=== PATIENT | female | born 1950 | race Caucasian/White ===

== ENCOUNTER 2016-08-13 04:53 | Day surgery (SDC) | payer OTHER, MEDICARE ==
[2016-08-08 15:30] VITALS: BMI 22.2
[~2016-08-13 04:53] MED LIST: ceFAZolin SODIUM 1 GM VIAL IVPB ONE
[2016-08-13] MEDS ORDERED: ACETAMINOPHEN 325 MG TABLET (FP) PO PRN (06:34)
[2016-08-13] MEDS ORDERED: IBUPROFEN 400 MG TABLET (FP) PO PRN (06:34)
--- NOTE | 2016-08-13 06:34 | HP ---
History & Physical Update - History History: No Change - Physical Physical: No Change - Assessment Assessment: No Change - Plan Plan: No Change
[2016-08-13] MEDS ORDERED: ONDANSETRON 4 MG/2 ML VIAL IVPUSH PRN (08:11)
[2016-08-13] MEDS ORDERED: oxyCODONE HCL 5 MG TABLET PO PRN (08:11)
[2016-08-13] MEDS ORDERED: PROMETHAZINE HCL 25 MG/1 ML VIAL IVPUSH PRN (08:11)
[2016-08-13] MEDS ORDERED: LACTATED RINGERS SOLUTION 1,000 ML IV SCH (08:15)
[2016-08-13 10:30] VITALS: TEMP 97.8
[2016-08-13] MEDS ORDERED: IBUPROFEN 600 MG TABLET (FP) PO PRN (11:13)
--- NOTE | 2016-08-13 11:15 | OP ---
[id number] Operation: LEEP Cone biopsy Findings: Leep Cone biopsy Post-Operative Diagnosis: Same as Pre-op Surgeon: Tiffanie oByce Anesthesiologist/LIQUEFIED PETROLEUM GASFITTER: Kendrick Beckman ([facility]) Anesthesia: General Estimated Blood Loss (mls): 5 Operative Report Dictated: Yes
[2016-08-13 14:37] VITALS: BP 119/69; PULSE 77
--- NOTE | 2016-08-14 14:39 | PATH ---
Surgical Pathology Report Patient Name: AMERICA OLMEDO [facility]. Rec. #: [id number] /Age/Gender: 1950 (Age: 66) / F Account: [id number] Location: [facility] SURGICAL Taken: 08/13/2016 Received: 08/13/2016 Reported: 08/14/2016 Physicians: Tiffanei Boyce M.D. Specimen(s) Received A: ECTOCERVIX LEEP CONE BIOPSY B: ENDOCERVIX LEEP CONE BIOPSY Clinical History Human papillomavirus infection Final Diagnosis A. ECTOCERVIX, LEEP CONE BIOPSY: CERVICAL SQUAMOUS AND ENDOCERVICAL MUCOSA WITH HIGH GRADE SQUAMOUS INTRAEPITHELIAL LESION (CERVICAL INTRAEPITHELIAL NEOPLASIA 2/ JOSE 2); FOCI OF LOW GRADE SQUAMOUS VENTRICULAR LESION ALSO PRESENT. SURGICAL RESECTION MARGINS: NEGATIVE FOR HIGH GRADE DYSPLASIA. TRANSFORMATION ZONE: PRESENT. B. ENDOCERVIX, LEEP CONE BIOPSY: BENIGN ENDOCERVICAL TISSUE. NO DYSPLASIA IDENTIFIED. TRANSFORMATION ZONE: NOT IDENTIFIED. Electronically Signed Laz Gonzalez M.D. Gross Description A. Received in formalin, labeled "ectocervix" is a 1.7 cm in diameter annular portion of soft tissue, consistent with a cervical cone biopsy. There is a suture present marking the 12:00 aspect of the specimen, per the surgeon. The specimen is partially surfaced by a hughes-pink, shiny and glistening mucosa. The specimen is inked green, serially sectioned and entirely submitted in 4 cassettes as follows: 1-12:00 to 3:00; 2-3:00 to 6:00; 3-6:00 to 9:00; 4-9:00 to 12:00. B. Received in formalin, labeled "endocervix" is a 1.7 x 1.1 x 0.9 cm irregular, unoriented portion of soft tissue. The specimen is inked green and serially sectioned. The specimen is entirely submitted in 3 cassettes. 08/13/201608/13/2016
--- NOTE | 2016-08-22 07:30 | OP ---
DATE OF OPERATION: 08/13/2016 PREOPERATIVE DIAGNOSIS: Human papillomavirus. OPERATION: Loop electrosurgical excision procedure cone biopsy. POSTOPERATIVE DIAGNOSIS: Human papillomavirus. SURGEON: Parul Boyce MD ANESTHESIOLOGIST: Nestor Beckman MD INTERNATIONAL TRADE COMPLIANCE MANAGER: Panfilo Padilla Jr., CRNA ANESTHESIA: General. PROCEDURE: Patient was taken to the operating room, placed in dorsal lithotomy position, prepped and draped in the usual sterile fashion. Lugol was placed on the cervix. A large LEEP loop cone was done, and the cervical specimen was removed. Contents were submitted to Pathology. Cautery was then used to cauterize the cervix. Monsel was placed on the cervix. Estimated blood loss was 3 mL. All instruments were then removed. Patient tolerated procedure well and was taken to the recovery room in stable condition. PARUL BOYCE M.D. [id number] MTDD
== END 2016-08-13 13:30 | disposition home or self-care (01) ==
LOC: JASU-SURG 04:53
PROVIDERS: ATTEND Obstetrics & Gynecology
PROC: 0UBC7ZX Excision of Cervix, Via Natural or Artificial Opening, Diagnostic (ICD-10-PCS; principal; 2016-08-13 08:00)
DX: N87.1 Moderate cervical dysplasia (principal); R87.810 Cervical high risk human papillomavirus (HPV) DNA test positive
CPT/HCPCS: 88307-TC; 94760

== ENCOUNTER 2016-08-29 10:24 | Day surgery (SDC) | payer OTHER, MEDICARE ==
[2016-08-29 10:56] LABS: BASOPHIL 0.9 % (0-2.0); EOSINOPHIL 1.1 % (0-4.5); MEAN CELL VOLUME 85.5 fl (80-96); MEAN PLT VOLUME 7.5 fl (7.5-11.1); NEUTROPHILS 62.9 % (42.8-82.8); PLATELET COUNT 424 K/MM3 (134-434); RDW 14.2 % (11.6-15.6); WHITE BLOOD COUNT 8.4 K/mm3 (4.0-10.0)
[2016-08-29] MEDS ORDERED: SODIUM CHLORIDE 250 ML IV ONE ×2 (11:15→15:00)
[2016-08-29 11:20] LABS: ALBUMIN 3.9 g/dl (3.4-5.0); AMYLASE 97 U/L (25-115); ANION GAP 8 (8-16); BILIRUBIN,TOTAL 0.3 mg/dL (0.2-1.0); CALCIUM 8.9 mg/dL (8.5-10.1); CO2 28 mmol/L (21-32); CREATININE 0.6 mg/dL (0.55-1.02); GLUCOSE,RANDOM 136 mg/dL (74-106); SGOT/AST 16 U/L (15-37); SGPT/ALT 28 U/L (12-78)
[2016-08-29 11:21] LABS: ALK PHOS 76 U/L (45-117); TOT PROT 7.6 g/dl (6.4-8.2)
[2016-08-29 11:29] LABS: BILIRUBIN,DIRECT < 0.1 mg/dL (0.0-0.2)
[2016-08-29] MEDS ORDERED: ACETAMINOPHEN 325 MG TABLET (FP) PO ONE (11:30)
[2016-08-29] MEDS ORDERED: HYDROCORTISONE SOD SUCCINATE 100 MG/2 ML VIAL IVPB ONE (11:30)
[2016-08-29] MEDS ORDERED: SODIUM CHLORIDE IVPB ONE (12:00)
[2016-08-29] MEDS ORDERED: INFLIXIMAB IVPB ONE (12:00)
[2016-08-29 12:32] LABS: ERYTHROCYTE SEDIMENTATION RATE 20 mm/hr (0-30)
[2016-08-29 14:02] LABS: C-REACTIVE PROTEIN < 0.3 MG/DL (0.00-0.3)
[2016-08-29 14:47] VITALS: BP 114/67; PULSE 82; TEMP 98.3; BMI 22.6
== END 2016-08-29 18:34 | disposition home or self-care (01) ==
LOC: JINFUSION 10:24 → J7W 10:32 → JINFUSION 18:34
PROVIDERS: ATTEND Internal Medicine Gastroenterology
DX: K51.90 Ulcerative colitis, unspecified, without complications (principal)
CPT/HCPCS: 96361; 96413; 96415; J1745; 36415; 80048; 80076; 82150; 85025; 85651; 86140; 96365; 96366

== ENCOUNTER 2016-10-03 08:53 | Day surgery (SDC) | payer OTHER, MEDICARE ==
[2016-10-02 14:30] VITALS: BMI 23.0
[2016-10-03] MEDS ORDERED: ACETAMINOPHEN 325 MG TABLET (FP) PO ONE (10:15)
[2016-10-03 10:21] LABS: ANION GAP 9 (8-16); BILIRUBIN,TOTAL 0.4 mg/dL (0.2-1.0); CO2 28 mmol/L (21-32); CREATININE 0.6 mg/dL (0.55-1.02); GLUCOSE,RANDOM 133 mg/dL (74-106); SGOT/AST 13 U/L (15-37); SGPT/ALT 23 U/L (12-78); TOT PROT 7.3 g/dl (6.4-8.2)
[2016-10-03 10:22] LABS: ALK PHOS 69 U/L (45-117)
[2016-10-03] MEDS ORDERED: ACETAMINOPHEN 325 MG TABLET (FP) ONE (10:37)
[2016-10-03] MEDS ORDERED: ZOLEDRONIC ACID/MAN/WATER 100 ML IVPB ONE (10:45)
[2016-10-03 13:21] VITALS: BP 138/65; PULSE 67
== END 2016-10-03 12:00 | disposition home or self-care (01) ==
LOC: JINFUSION 08:53 → J7W 08:54 → JINFUSION 08:54
PROVIDERS: ATTEND Family Medicine
PROC: 3E033GC Introduction of Other Therapeutic Substance into Peripheral Vein, Percutaneous Approach (ICD-10-PCS; principal; 2016-10-03)
DX: M81.0 Age-related osteoporosis without current pathological fracture (principal)
CPT/HCPCS: 96365; J3489; 36415; 80053; J1745

== ENCOUNTER 2016-11-01 09:08 | Day surgery (SDC) | payer OTHER, MEDICARE ==
[2016-11-01 09:25] LABS: BASOPHIL 0.9 % (0-2.0); EOSINOPHIL 2.2 % (0-4.5); MCH 28.6 pg (25.7-33.7); MCHC 32.7 g/dl (32.0-36.0); MEAN CELL VOLUME 87.4 fl (80-96); MEAN PLT VOLUME 7.3 fl (7.5-11.1); PLATELET COUNT 329 K/MM3 (134-434); RDW 14.7 % (11.6-15.6); WHITE BLOOD COUNT 6.5 K/mm3 (4.0-10.0)
[2016-11-01] MEDS ORDERED: SODIUM CHLORIDE 250 ML IV ONE ×2 (09:45→13:30)
[2016-11-01] MEDS ORDERED: ACETAMINOPHEN 500 MG TABLET (FP) PO ONE (10:00)
[2016-11-01] MEDS ORDERED: HYDROCORTISONE SOD SUCCINATE 100 MG/2 ML VIAL IVPB ONE (10:00)
[2016-11-01 10:23] LABS: C-REACTIVE PROTEIN < 0.3 MG/DL (0.00-0.3)
[2016-11-01] MEDS ORDERED: INFLIXIMAB IVPB ONE (10:30)
[2016-11-01] MEDS ORDERED: SODIUM CHLORIDE IVPB ONE (10:30)
[2016-11-01 10:44] LABS: ALBUMIN 3.9 g/dl (3.4-5.0); ALK PHOS 66 U/L (45-117); AMYLASE 77 U/L (25-115); ANION GAP 10 (8-16); BILIRUBIN,TOTAL 0.3 mg/dL (0.2-1.0); CALCIUM 8.8 mg/dL (8.5-10.1); CO2 26 mmol/L (21-32); CREATININE 0.6 mg/dL (0.55-1.02); GLUCOSE,RANDOM 125 mg/dL (74-106); SGOT/AST 10 U/L (15-37); SGPT/ALT 18 U/L (12-78); TOT PROT 7.3 g/dl (6.4-8.2)
[2016-11-01 10:45] LABS: BILIRUBIN,DIRECT < 0.1 mg/dL (0.0-0.2)
[2016-11-01 11:15] LABS: ERYTHROCYTE SEDIMENTATION RATE 10 mm/hr (0-30)
[2016-11-01 15:37] VITALS: TEMP 98
[2016-11-01 15:53] VITALS: BP 134/74; PULSE 73
== END 2016-11-01 15:55 | disposition home or self-care (01) ==
LOC: JCHEMO 09:08
PROVIDERS: ATTEND Internal Medicine Gastroenterology
DX: K51.90 Ulcerative colitis, unspecified, without complications (principal)
CPT/HCPCS: 96361; 96413; 96415; J1745; 36415; 80048; 80076; 82150; 85025; 85651; 86140

== ENCOUNTER 2016-11-15 15:35 | Emergency (ER) | payer OTHER, MEDICARE ==
[2016-11-15 15:47] VITALS: TEMP 97.8; BMI 22.0
--- NOTE | 2016-11-15 17:44 | PDOC ---
History of Present Illness - General History Source: Patient Exam Limitations: No Limitations - History of Present Illness Travel History: No Initial Comments: 11/15/16 17:38 66 yo F with PMHx of ulcerative colitis treated with Remicade presents with one week history of diarrhea. She states that for the past week she has had 3-5 non- bloody watery bowel movements. She states that she has had poor oral intake and feels as if she is dehydrated. She feels weak and has had subjective fevers. She endorses that she is on last day of treatment with Z pack for recent URI. However diarrhea started before initiation of antibiotics. Accompanied by abdominal pain which she rates 3/10 constant non radiating mostly in LLQ. No alleviating or aggravating factors. Denies travel or sick contacts. Denies CP, SOB, N/V. <Daniel Mace - Last Filed: 11/15/16 18:18> <German Xie - Last Filed: 11/15/16 20:41> - General Chief Complaint: Diarrhea Stated Complaint: FATIGUE, DIARRHEA Time Seen by Provider: 11/15/16 17:16 Past History - Travel Traveled outside of the country in the last 30 days: No Close contact w/someone who was outside of country & ill: No - Past Medical History Anemia: No Asthma: No Cancer: No Cardiac Disorders: No CVA: No COPD: No CHF: No Dementia: No Diabetes: No GI Disorders: Yes (ULCERATIVE COLITIS,REFLUX) Disorders: No HTN: No Hypercholesterolemia: No Liver Disease: No Suicide Attempt (Hx): No Seizures: No Thyroid Disease: No - Surgical History Abdominal Surgery: No Appendectomy: No Cardiac Surgery: No Cholecystectomy: No Lung Surgery: No Neurologic Surgery: Yes (FACET INJECTION) Orthopedic Surgery: No - Immunization History Immunization Up to Date: Yes - Psycho/Social/Smoking Cessation Hx Anxiety: Yes Suicidal Ideation: No Smoking Status: No Smoking History: Never smoked Have you smoked in the past 12 months: No Number of Cigarettes Smoked Daily: 0 Cigars Per Day: 0 Hx Alcohol Use: No Drug/Substance Use Hx: No Substance Use Type: None Hx Substance Use Treatment: No <Daniel Mace - Last Filed: 11/15/16 18:18> <German Xie - Last Filed: 11/15/16 20:41> - Past Medical History Allergies/Adverse Reactions: Allergies Allergy/AdvReac Type Severity Reaction Status Date / Time codeine [Codeine] Allergy Unknown Verified 11/15/16 15:45 Home Medications: Ambulatory Orders Azithromycin [Zithromax Tri-Paresh (3 DAYS) -] 500 mg PO DAILY 11/15/16 Infliximab [Remicade Infusion -] 0 mg IVPB ASDIR 11/15/16 Abd/GI Specific PMHX - Complaint Specific PMHX Colitis: Yes Other History: Ulcerative colitis well controlled on Remicade. <Daniel Mace - Last Filed: 11/15/16 18:18> Review of Systems - Review of Systems Constitutional: Yes: Loss of Appetite ABD/GI: Yes: Diarrhea, Poor Appetite, Poor Fluid Intake Musculoskeletal: Yes: Muscle Weakness Neurological: Yes: Headache All Other Systems: Reviewed and Negative <Daniel Mace - Last Filed: 11/15/16 18:18> *Physical Exam - Vital Signs Last Vital Signs Temp Pulse Resp BP Pulse Ox 97.8 F 74 18 109/66 98 11/15/16 15:46 11/15/16 15:46 11/15/16 15:46 11/15/16 15:46 11/15/16 15:46 - Physical Exam General Appearance: Yes: Mild Distress HEENT: positive: LEROY, Normal ENT Inspection Neck: positive: Supple Respiratory/Chest: positive: Lungs Clear, Normal Breath Sounds. negative: Respiratory Distress, Accessory Muscle Use Cardiovascular: positive: Regular Rhythm, Regular Rate, S1, S2. negative: Edema , JVD, Murmur Gastrointestinal/Abdominal: positive: Normal Bowel Sounds, Tender (LLQ), Flat, Soft Musculoskeletal: positive: Normal Inspection. negative: CVA Tenderness Integumentary: positive: Normal Color, Dry, Warm Neurologic: positive: Fully Oriented <Daniel Mace - Last Filed: 11/15/16 18:18> - Vital Signs Last Vital Signs Temp Pulse Resp BP Pulse Ox 97.8 F 74 18 109/66 98 11/15/16 15:46 11/15/16 15:46 11/15/16 15:46 11/15/16 15:46 11/15/16 15:46 <German Xie - Last Filed: 11/15/16 20:41> ED Treatment Course - LABORATORY CBC & Chemistry Diagram: 11/15/16 17:42 11/15/16 17:42 <Daniel Mace - Last Filed: 11/15/16 18:18> - LABORATORY CBC & Chemistry Diagram: 11/15/16 17:42 11/15/16 17:42 - ADDITIONAL ORDERS Additional order review: Laboratory Results 11/15/16 17:42 Sodium 141 Potassium 3.7 Chloride 104 Carbon Dioxide 28 Anion Gap 9 BUN 21 H D Creatinine 0.7 Creat Clearance w eGFR > 60 Random Glucose 111 H Calcium 8.2 L Magnesium 2.5 H D Total Bilirubin 0.3 AST 20 D ALT 26 D Alkaline Phosphatase 56 Total Protein 7.0 Albumin 3.7 11/15/16 17:42 RBC 4.79 MCV 85.2 MCHC 33.7 RDW 14.3 MPV 8.4 D Neutrophils % 27.0 L D Lymphocytes % 56.0 H D Monocytes % 10.0 - Medications Given in the ED: ED Medications Discontinued Medications Generic Name Dose Route Start Last Admin Trade Name Freq PRN Reason Stop Dose Admin Sodium Chloride 1,000 mls @ 1,000 mls/hr 11/15/16 17:35 11/15/16 18:00 Normal Saline - IV 11/15/16 18:34 1,000 mls/hr ASDIR STA Administration <German Xie - Last Filed: 11/15/16 20:41> Medical Decision Making - Medical Decision Making 11/15/16 17:47 66 yo F with Ulcerative Colitis presents with one week history of watery diarrhea. Will send stool for ova, paracites, WBC,c-diff(ab&antigen) and cultures. CBC, CMP, sent. Will give 1L IVF bolus with NS <Daniel Mace - Last Filed: 11/15/16 18:18> *DC/Admit/Observation/Transfer <Daniel Mace - Last Filed: 11/15/16 18:18> <German Xie - Last Filed: 11/15/16 20:41> Diagnosis at time of Disposition: Dehydration Diarrhea Qualifiers: Diarrhea type: unspecified type Qualified Code(s): R19.7 - Diarrhea, unspecified - Discharge Dispostion Disposition: HOME Condition at time of disposition: Stable - Patient Instructions Printed Discharge Instructions: DI for Diarrhea and Traveler's Diarrhea -- Adult
[2016-11-15] MEDS: SODIUM CHLORIDE 1,000 ML IV STA (18:00)
[2016-11-15 18:03] LABS: MCH 28.7 pg (25.7-33.7); MCHC 33.7 g/dl (32.0-36.0); MEAN CELL VOLUME 85.2 fl (80-96); MEAN PLT VOLUME 8.4 fl (7.5-11.1); PLATELET COUNT 269 K/MM3 (134-434); RDW 14.3 % (11.6-15.6); WHITE BLOOD COUNT 5.6 K/mm3 (4.0-10.0)
[2016-11-15 18:30] LABS: ALBUMIN 3.7 g/dl (3.4-5.0); ALK PHOS 56 U/L (45-117); ANION GAP 9 (8-16); BILIRUBIN,TOTAL 0.3 mg/dL (0.2-1.0); CALCIUM 8.2 mg/dL (8.5-10.1); CO2 28 mmol/L (21-32); COCKROFT - GAULT 63.3675; CREATININE 0.7 mg/dL (0.55-1.02); GLUCOSE,RANDOM 111 mg/dL (74-106); SGOT/AST 20 U/L (15-37); SGPT/ALT 26 U/L (12-78)
[2016-11-15 19:06] LABS: PLATELET ESTIMATE ADEQUATE (NORMAL)
--- NOTE | 2016-11-15 19:18 | PDOC ---
Attending Attestation - Resident Resident Name: Daniel Mace - ED Attending Attestation I have performed the following: I have examined & evaluated the patient, The case was reviewed & discussed with the resident, I agree w/resident's findings & plan, Exceptions are as noted - HPI HPI: 11/15/16 19:16 66-year-old female with history of ulcerative colitis on Remicade, presents with several days of persistent, productive cough, intermittent abdominal pain that is exacerbated post tussive only, and several days of loose watery stools with associated generalized weakness and malaise. Patient's currently on day 4 of Zithromax prescribed by the PMD. - Physicial Exam PE: 11/15/16 19:17 Patient is awake and alert, well-appearing, afebrile, in no distress. Serial abdominal exams reveal no focal tenderness. Lungs are clear, there is no lower externally edema, joint pathology or cutaneous rash. - Medical Decision Making 11/15/16 19:17 Patient 66-year-old female with history of ulcerative colitis who presents with uri-type symptoms and loose watery stools for one week. I suspect acute viral syndrome. Symptoms are unlikely related to acute altered colitis exacerbation. We'll obtain stool cultures as well as will test for C. difficile. Will hydrate. Will discuss with PMD. Likely discharge. 11/15/16 20:38 Patient reassessed. Patient is resting comfortably, pain free, tolerates by mouth. Will discharge. Case discussed with Dr. Brooks who agrees with the plan of care.
[2016-11-15 19:45] LABS: MAGNESIUM 2.5 mg/dL (1.8-2.4)
[2016-11-15 21:20] VITALS: BP 115/70; PULSE 68
== END 2016-11-15 21:10 | disposition home or self-care (01) ==
LOC: JER 15:35
PROC: 3E0337Z Introduction of Electrolytic and Water Balance Substance into Peripheral Vein, Percutaneous Approach (ICD-10-PCS; principal; 2016-11-15)
DX: E86.0 Dehydration (principal); R19.7 Diarrhea, unspecified; Z87.19 Personal history of other diseases of the digestive system
CPT/HCPCS: 36415; 80053; 83735; 85025; 99283-25

== ENCOUNTER 2016-12-28 08:07 | Day surgery (SDC) | payer OTHER, MEDICARE ==
[2016-12-28 08:44] LABS: BASOPHIL 0.7 % (0-2.0); EOSINOPHIL 2.5 % (0-4.5); MCH 29.2 pg (25.7-33.7); MCHC 33.4 g/dl (32.0-36.0); MEAN CELL VOLUME 87.3 fl (80-96); MEAN PLT VOLUME 7.4 fl (7.5-11.1); NEUTROPHILS 47.1 % (42.8-82.8); PLATELET COUNT 334 K/MM3 (134-434); RDW 14.8 % (11.6-15.6); WHITE BLOOD COUNT 6.2 K/mm3 (4.0-10.0)
[2016-12-28] MEDS ORDERED: HYDROCORTISONE SOD SUCCINATE 100 MG/2 ML VIAL IVPB ONE (09:00)
[2016-12-28] MEDS ORDERED: SODIUM CHLORIDE 250 ML IV ONE ×2 (09:00→12:30)
[2016-12-28] MEDS ORDERED: ACETAMINOPHEN 500 MG TABLET (FP) PO ONE (09:00)
[2016-12-28 09:15] LABS: ALBUMIN 3.8 g/dl (3.4-5.0); ALK PHOS 68 U/L (45-117); ANION GAP 10 (8-16); BILIRUBIN,TOTAL 0.3 mg/dL (0.2-1.0); CO2 27 mmol/L (21-32); COCKROFT - GAULT 0; CREATININE 0.6 mg/dL (0.55-1.02); GLUCOSE,RANDOM 128 mg/dL (74-106); SGOT/AST 11 U/L (15-37); SGPT/ALT 24 U/L (12-78); TOT PROT 7.1 g/dl (6.4-8.2)
[2016-12-28] MEDS ORDERED: HYDROCORTISONE ONE (09:21)
[2016-12-28] MEDS ORDERED: ACETAMINOPHEN 500 MG TABLET (FP) ONE (09:21)
[2016-12-28 09:24] LABS: BILIRUBIN,DIRECT < 0.1 mg/dL (0.0-0.2)
[2016-12-28] MEDS ORDERED: INFLIXIMAB IVPB ONE (09:30)
[2016-12-28] MEDS ORDERED: SODIUM CHLORIDE IVPB ONE (09:30)
[2016-12-28 09:32] LABS: C-REACTIVE PROTEIN < 0.3 MG/DL (0.00-0.3)
[2016-12-28 10:04] LABS: ERYTHROCYTE SEDIMENTATION RATE 16 mm/hr (0-30)
[2016-12-28 13:21] VITALS: TEMP 98.2
[2016-12-28 15:56] VITALS: BP 140/79; PULSE 68
== END 2016-12-28 15:58 | disposition home or self-care (01) ==
LOC: JCHEMO 08:07
PROVIDERS: ATTEND Internal Medicine Gastroenterology
DX: K51.90 Ulcerative colitis, unspecified, without complications (principal)
CPT/HCPCS: 96413; 96415; J1745; 36415; 80048; 80076; 82150; 85025; 85651; 86140

== ENCOUNTER 2017-03-05 08:29 | Day surgery (SDC) | payer OTHER, MEDICARE ==
[~2017-03-05 08:29] MED LIST changes: +ACETAMINOPHEN 500 MG TABLET (FP) PO ONE; +HYDROCORTISONE SOD SUCCINATE 100 MG/2 ML VIAL IVPB ONE; +INFLIXIMAB IVPB ONE; +SODIUM CHLORIDE IVPB ONE; -ceFAZolin SODIUM 1 GM VIAL IVPB ONE; +diphenhydrAMINE HCL 25 MG CAPSULE (FP) PO ONE
[2017-03-05 09:03] LABS: BASOPHIL 0.6 % (0-2.0); EOSINOPHIL 1.7 % (0-4.5); MCH 29.6 pg (25.7-33.7); MCHC 33.5 g/dl (32.0-36.0); MEAN CELL VOLUME 88.3 fl (80-96); MEAN PLT VOLUME 7.2 fl (7.5-11.1); NEUTROPHILS 53.1 % (42.8-82.8); PLATELET COUNT 343 K/MM3 (134-434); RDW 14.8 % (11.6-15.6); WHITE BLOOD COUNT 7.2 K/mm3 (4.0-10.0)
[2017-03-05 09:29] LABS: ALBUMIN 3.8 g/dl (3.4-5.0); ALK PHOS 61 U/L (45-117); AMYLASE 71 U/L (25-115); ANION GAP 6 (8-16); BILIRUBIN,TOTAL 0.4 mg/dL (0.2-1.0); C-REACTIVE PROTEIN < 0.3 MG/DL (0.00-0.3); CALCIUM 9.1 mg/dL (8.5-10.1); CO2 31 mmol/L (21-32); CREATININE 0.6 mg/dL (0.55-1.02); GLUCOSE,RANDOM 104 mg/dL (74-106); SGOT/AST 12 U/L (15-37); SGPT/ALT 22 U/L (12-78)
[2017-03-05 09:34] LABS: BILIRUBIN,DIRECT < 0.1 mg/dL (0.0-0.2)
[2017-03-05] MEDS ORDERED: ACETAMINOPHEN 500 MG TABLET (FP) ONE ×2 (09:43→09:45)
[2017-03-05] MEDS ORDERED: ACETAMINOPHEN 500 MG TABLET (FP) PO ONE (09:45)
[2017-03-05] MEDS ORDERED: HYDROCORTISONE SOD SUCCINATE 100 MG/2 ML VIAL IVPB ONE (09:45)
[2017-03-05] MEDS ORDERED: SODIUM CHLORIDE 250 ML IV ONE ×2 (09:45→13:00)
[2017-03-05] MEDS ORDERED: HYDROCORTISONE ONE (10:04)
[2017-03-05] MEDS ORDERED: SODIUM CHLORIDE IVPB ONE (10:30)
[2017-03-05] MEDS ORDERED: INFLIXIMAB IVPB ONE (10:30)
[2017-03-05 13:50] LABS: ERYTHROCYTE SEDIMENTATION RATE 12 mm/hr (0-30)
[2017-03-05 14:01] VITALS: TEMP 99.1
[2017-03-05 15:36] VITALS: BP 110/68; PULSE 70
== END 2017-03-05 15:37 | disposition home or self-care (01) ==
LOC: JCHEMO 08:29
PROVIDERS: ATTEND Internal Medicine Gastroenterology
DX: K51.90 Ulcerative colitis, unspecified, without complications (principal)
CPT/HCPCS: 96367; 96413; 96415; J1745; 36415; 80048; 80076; 82150; 85025; 85651; 86140

== ENCOUNTER 2017-05-02 08:25 | Day surgery (SDC) | payer OTHER, MEDICARE ==
[2017-05-02] MEDS ORDERED: ACETAMINOPHEN 500 MG TABLET (FP) ONE (08:37)
[2017-05-02 08:53] LABS: BASOPHIL 0.6 % (0-2.0); EOSINOPHIL 1.7 % (0-4.5); MCH 29.4 pg (25.7-33.7); MCHC 33.4 g/dl (32.0-36.0); MEAN CELL VOLUME 87.9 fl (80-96); MEAN PLT VOLUME 7.2 fl (7.5-11.1); NEUTROPHILS 53.8 % (42.8-82.8); PLATELET COUNT 371 K/MM3 (134-434); WHITE BLOOD COUNT 7.2 K/mm3 (4.0-10.0)
[2017-05-02] MEDS ORDERED: SODIUM CHLORIDE 250 ML IV ONE ×2 (09:00→13:00)
[2017-05-02] MEDS ORDERED: HYDROCORTISONE SOD SUCCINATE 100 MG/2 ML VIAL IVPB ONE (09:30)
[2017-05-02] MEDS ORDERED: ACETAMINOPHEN 500 MG TABLET (FP) PO ONE (09:30)
[2017-05-02 09:31] LABS: ALBUMIN 3.7 g/dl (3.4-5.0); AMYLASE 66 U/L (25-115); ANION GAP 9 (8-16); BILIRUBIN,DIRECT < 0.1 mg/dL (0.0-0.2); BILIRUBIN,TOTAL 0.3 mg/dL (0.2-1.0); C-REACTIVE PROTEIN 0.5 MG/DL (0.00-0.3); CALCIUM 8.9 mg/dL (8.5-10.1); CO2 28 mmol/L (21-32); CREATININE 0.5 mg/dL (0.55-1.02); GLUCOSE,RANDOM 128 mg/dL (74-106); SGOT/AST 14 U/L (15-37); SGPT/ALT 26 U/L (12-78); TOT PROT 7.2 g/dl (6.4-8.2)
[2017-05-02 09:32] LABS: ALK PHOS 68 U/L (45-117)
[2017-05-02] MEDS ORDERED: INFLIXIMAB IVPB ONE (10:00)
[2017-05-02] MEDS ORDERED: SODIUM CHLORIDE IVPB ONE (10:00)
[2017-05-02] MEDS ORDERED: HYDROCORTISONE ONE (10:13)
[2017-05-02 10:33] LABS: ERYTHROCYTE SEDIMENTATION RATE 22 mm/hr (0-30)
[2017-05-02 15:23] VITALS: BP 126/72; PULSE 72; TEMP 98.2
== END 2017-05-02 15:52 | disposition home or self-care (01) ==
LOC: JCHEMO 08:25
PROVIDERS: ATTEND Internal Medicine Gastroenterology
DX: K51.90 Ulcerative colitis, unspecified, without complications (principal)
CPT/HCPCS: 36415; 80048; 80076; 82150; 85025; 85651; 86140; 96367; 96413; 96415; J1745

== ENCOUNTER 2017-06-25 07:07 | Day surgery (SDC) | payer OTHER, MEDICARE ==
[2017-06-24 10:42] VITALS: BMI 22.6
[2017-06-25] MEDS ORDERED: BUPIVACAINE HCL/PF 0.25% (2.5MG/ML) 10 ML VIAL ONE (07:22)
[2017-06-25] MEDS ORDERED: BETAMET ACET/BETAMET NA PH 30 MG/5 ML VIAL ONE (07:22)
[2017-06-25] MEDS ORDERED: LIDOCAINE HCL 1%, 10 MG/ML (20ML VIAL) ONE (07:22)
[2017-06-25 07:30] VITALS: TEMP 97.3
[2017-06-25] MEDS ORDERED: MIDAZOLAM HCL 2 MG/2 ML SINGLE DOSE VIAL ONE (08:14)
[2017-06-25] MEDS ORDERED: PROPOFOL 20 ML ONE (08:15)
[2017-06-25] MEDS ORDERED: IOHEXOL 180 MG/1 ML ML IJ ONE (08:57)
[2017-06-25] MEDS ORDERED: BUPIVACAINE HCL/PF 0.25% (2.5MG/ML) 10 ML VIAL IJ ONE (08:57)
[2017-06-25] MEDS ORDERED: BETAMET ACET/BETAMET NA PH 30 MG/5 ML VIAL IM ONE (08:57)
[2017-06-25] MEDS ORDERED: LIDOCAINE HCL 1%, 10 MG/ML (20ML VIAL) NR ONE (08:57)
[2017-06-25] MEDS ORDERED: oxyCODONE HCL 5 MG TABLET PO PRN (10:24)
[2017-06-25] MEDS ORDERED: ACETAMINOPHEN 325 MG TABLET (FP) PO PRN (10:24)
[2017-06-25] MEDS ORDERED: ONDANSETRON 4 MG/2 ML VIAL IVPUSH PRN (10:24)
[2017-06-25] MEDS ORDERED: LACTATED RINGERS SOLUTION 1,000 ML IV SCH (10:30)
[2017-06-25 11:29] VITALS: BP 127/84; PULSE 69
== END 2017-06-25 11:30 | disposition home or self-care (01) ==
LOC: JASU-SURG 07:07
PROVIDERS: ATTEND Physical Medicine & Rehabilitation
PROC: 3E0T33Z Introduction of Anti-inflammatory into Peripheral Nerves and Plexi, Percutaneous Approach (ICD-10-PCS; 2017-06-25)
PROC: BR16YZZ Fluoroscopy of Lumbar Facet Joint(s) using Other Contrast (ICD-10-PCS; 2017-06-25)
PROC: 3E0T3BZ Introduction of Anesthetic Agent into Peripheral Nerves and Plexi, Percutaneous Approach (ICD-10-PCS; principal; 2017-06-25 08:30)
DX: M46.96 Unspecified inflammatory spondylopathy, lumbar region (principal); M54.9 Dorsalgia, unspecified
CPT/HCPCS: 76000-TC

== ENCOUNTER 2017-07-05 08:59 | Day surgery (SDC) | payer OTHER, MEDICARE ==
[2017-07-05] MEDS ORDERED: HYDROCORTISONE ONE (09:15)
[2017-07-05] MEDS ORDERED: diphenhydrAMINE HCL 25 MG CAPSULE (FP) PO ONE ×2 (09:16→09:30)
[2017-07-05] MEDS ORDERED: ACETAMINOPHEN 500 MG TABLET (FP) ONE (09:17)
[2017-07-05] MEDS ORDERED: HYDROCORTISONE SOD SUCCINATE 100 MG/2 ML VIAL IVPB ONE (09:30)
[2017-07-05] MEDS ORDERED: ACETAMINOPHEN 500 MG TABLET (FP) PO ONE (09:30)
[2017-07-05 09:32] LABS: BASOPHIL 0.9 % (0-2.0); EOSINOPHIL 2.2 % (0-4.5); MCH 28.8 pg (25.7-33.7); MCHC 32.7 g/dl (32.0-36.0); MEAN PLT VOLUME 7.5 fl (7.5-11.1); NEUTROPHILS 44.8 % (42.8-82.8); PLATELET COUNT 366 K/MM3 (134-434); RDW 14.2 % (11.6-15.6); WHITE BLOOD COUNT 7.3 K/mm3 (4.0-10.0)
[2017-07-05] MEDS ORDERED: SODIUM CHLORIDE 250 ML IV SCH ×2 (09:45→12:30)
[2017-07-05 09:53] LABS: ALBUMIN 3.7 g/dl (3.4-5.0); ALK PHOS 67 U/L (45-117); AMYLASE 77 U/L (25-115); ANION GAP 7 (8-16); BILIRUBIN,DIRECT < 0.2 mg/dL (0.0-0.2); BILIRUBIN,TOTAL 0.3 mg/dL (0.2-1.0); CALCIUM 8.7 mg/dL (8.5-10.1); CO2 27 mmol/L (21-32); CREATININE 0.6 mg/dL (0.55-1.02); GLUCOSE,RANDOM 147 mg/dL (74-106); SGOT/AST 10 U/L (15-37); SGPT/ALT 21 U/L (12-78); TOT PROT 7.1 g/dl (6.4-8.2)
[2017-07-05 10:28] LABS: C-REACTIVE PROTEIN < 0.3 MG/DL (0.00-0.3)
[2017-07-05] MEDS ORDERED: SODIUM CHLORIDE IVPB ONE (10:30)
[2017-07-05] MEDS ORDERED: INFLIXIMAB IVPB ONE (10:30)
[2017-07-05 12:32] LABS: ERYTHROCYTE SEDIMENTATION RATE 15 mm/hr (0-30)
[2017-07-05 13:14] VITALS: PULSE 70
[2017-07-05 13:50] VITALS: TEMP 97.7
[2017-07-05 15:19] VITALS: BP 114/72
== END 2017-07-05 15:24 | disposition home or self-care (01) ==
LOC: JCHEMO 08:59
PROVIDERS: ATTEND Internal Medicine Gastroenterology
DX: K51.90 Ulcerative colitis, unspecified, without complications (principal)
CPT/HCPCS: 36415; 80048; 80076; 82150; 85025; 85651; 86140; 96360; 96361; 96413; 96415; J1745

== ENCOUNTER 2017-09-04 09:22 | Day surgery (SDC) | payer OTHER, MEDICARE ==
[~2017-09-04 09:22] MED LIST changes: -ACETAMINOPHEN 500 MG TABLET (FP) PO ONE; -HYDROCORTISONE SOD SUCCINATE 100 MG/2 ML VIAL IVPB ONE; -INFLIXIMAB IVPB ONE; +SODIUM CHLORIDE 250 ML IV ONE; -SODIUM CHLORIDE IVPB ONE; -diphenhydrAMINE HCL 25 MG CAPSULE (FP) PO ONE
[2017-09-04] MEDS ORDERED: HYDROCORTISONE ONE (09:27)
[2017-09-04] MEDS ORDERED: ACETAMINOPHEN 325 MG TABLET (FP) ONE (09:27)
[2017-09-04] MEDS ORDERED: ACETAMINOPHEN 500 MG TABLET (FP) ONE (09:30)
[2017-09-04] MEDS ORDERED: ACETAMINOPHEN 500 MG TABLET (FP) PO ONE (09:30)
[2017-09-04] MEDS ORDERED: HYDROCORTISONE SOD SUCCINATE 100 MG/2 ML VIAL IVPB ONE (09:30)
[2017-09-04 09:47] LABS: BASO % 0.7 % (0-2.0); EOS % 1.2 % (0-4.5); HEMATOCRIT 41.3 % (32.4-45.2); HEMOGLOBIN 13.4 GM/dL (10.7-15.3); LYMPH % 37.3 % (8-40); MCH 28.3 pg (25.7-33.7); MCHC 32.5 g/dl (32.0-36.0); MEAN PLT VOLUME 7.5 fl (7.5-11.1); MONO % 9.6 % (3.8-10.2); NEUT % 51.2 % (42.8-82.8); PLATELET COUNT 387 K/MM3 (134-434); RBC 4.75 M/mm3 (3.60-5.2); RDW 14.3 % (11.6-15.6); WHITE BLOOD COUNT 7.4 K/mm3 (4.0-10.0)
[2017-09-04] MEDS ORDERED: INFLIXIMAB IVPB ONE (10:00)
[2017-09-04] MEDS ORDERED: SODIUM CHLORIDE IVPB ONE (10:00)
[2017-09-04 10:53] LABS: ALBUMIN 3.9 g/dl (3.4-5.0); AMYLASE 65 U/L (25-115); ANION GAP 8 (8-16); BILIRUBIN,DIRECT < 0.2 mg/dL (0.0-0.2); BLOOD UREA NITROGEN 15 mg/dL (7-18); CALCIUM 9.2 mg/dL (8.5-10.1); CHLORIDE 105 mmol/L (98-107); CO2 28 mmol/L (21-32); CREATININE 0.5 mg/dL (0.55-1.02); GLUCOSE,RANDOM 97 mg/dL (74-106); POTASSIUM 3.9 mmol/L (3.5-5.1); SGOT/AST 12 U/L (15-37); SGPT/ALT 19 U/L (12-78); SODIUM 141 mmol/L (136-145)
[2017-09-04 10:54] LABS: ALK PHOS 63 U/L (45-117); BILIRUBIN,TOTAL 0.5 mg/dL (0.2-1.0); TOT PROT 7.5 g/dl (6.4-8.2)
[2017-09-04] MEDS ORDERED: SODIUM CHLORIDE 250 ML IV ONE (13:00)
[2017-09-04 15:33] VITALS: TEMP 98.5
[2017-09-04 16:14] VITALS: BP 116/72; PULSE 76
== END 2017-09-04 16:22 | disposition home or self-care (01) ==
LOC: JCHEMO 09:22
PROVIDERS: ATTEND Internal Medicine Gastroenterology
DX: K51.90 Ulcerative colitis, unspecified, without complications (principal)
CPT/HCPCS: 36415; 80048; 80076; 82150; 85025; 85651; 86140; 96367; 96413; 96415; J1745

== ENCOUNTER 2017-10-30 09:37 | Day surgery (SDC) | payer OTHER, MEDICARE ==
[2017-10-30] MEDS ORDERED: HYDROCORTISONE SOD SUCCINATE 100 MG/2 ML VIAL IVPB ONE (10:00)
[2017-10-30] MEDS ORDERED: ACETAMINOPHEN 500 MG TABLET (FP) PO ONE (10:00)
[2017-10-30] MEDS ORDERED: SODIUM CHLORIDE 250 ML IV SCH ×2 (10:00→14:00)
[2017-10-30 10:14] LABS: EOS % 1.5 % (0-4.5); HEMATOCRIT 40.6 % (32.4-45.2); HEMOGLOBIN 13.4 GM/dL (10.7-15.3); LYMPH % 30.9 % (8-40); MCH 29.2 pg (25.7-33.7); MCHC 33.1 g/dl (32.0-36.0); MEAN PLT VOLUME 7.8 fl (7.5-11.1); MONO % 11.8 % (3.8-10.2); NEUT % 54.8 % (42.8-82.8); PLATELET COUNT 415 K/MM3 (134-434); RBC 4.61 M/mm3 (3.60-5.2); WHITE BLOOD COUNT 6.7 K/mm3 (4.0-10.0)
[2017-10-30 10:25] LABS: ALBUMIN 3.9 g/dl (3.4-5.0); AMYLASE 68 U/L (25-115); ANION GAP 5 (8-16); BILIRUBIN,DIRECT < 0.2 mg/dL (0.0-0.2); BLOOD UREA NITROGEN 13 mg/dL (7-18); CALCIUM 8.8 mg/dL (8.5-10.1); CHLORIDE 105 mmol/L (98-107); CO2 28 mmol/L (21-32); CREATININE 0.6 mg/dL (0.55-1.02); GLUCOSE,RANDOM 102 mg/dL (74-106); POTASSIUM 4.2 mmol/L (3.5-5.1); SGOT/AST 14 U/L (15-37); SGPT/ALT 27 U/L (12-78); SODIUM 138 mmol/L (136-145)
[2017-10-30 10:27] LABS: ALK PHOS 64 U/L (45-117); BILIRUBIN,TOTAL 0.3 mg/dL (0.2-1.0); TOT PROT 7.2 g/dl (6.4-8.2)
[2017-10-30] MEDS ORDERED: HYDROCORTISONE ONE (10:48)
[2017-10-30] MEDS ORDERED: ACETAMINOPHEN 500 MG TABLET (FP) ONE (10:49)
[2017-10-30] MEDS ORDERED: SODIUM CHLORIDE IVPB ONE (11:00)
[2017-10-30] MEDS ORDERED: INFLIXIMAB IVPB ONE (11:00)
[2017-10-30 11:55] LABS: ERYTHROCYTE SEDIMENTATION RATE 19 mm/hr (0-30)
[2017-10-30 15:07] VITALS: TEMP 98.7
[2017-10-30 16:32] VITALS: BP 134/74; PULSE 80
== END 2017-10-30 16:38 | disposition home or self-care (01) ==
LOC: JCHEMO 09:37
PROVIDERS: ATTEND Internal Medicine Gastroenterology
DX: K51.90 Ulcerative colitis, unspecified, without complications (principal)
CPT/HCPCS: 36415; 80048; 80076; 82150; 85025; 85651; 86140; 96367; 96413; 96415; J1745

== ENCOUNTER 2018-01-06 09:19 | Day surgery (SDC) | payer OTHER, MEDICARE ==
[2018-01-06] MEDS ORDERED: SODIUM CHLORIDE 250 ML IV ONE ×2 (10:00→14:15)
[2018-01-06] MEDS ORDERED: HYDROCORTISONE SOD SUCCINATE 100 MG/2 ML VIAL IVPB ONE (10:15)
[2018-01-06] MEDS ORDERED: ACETAMINOPHEN 500 MG TABLET (FP) PO ONE (10:15)
[2018-01-06] MEDS ORDERED: methylPREDNISolone NA SUCC 40 MG/1 ML VIAL IVPUSH ONE (10:15)
[2018-01-06] MEDS ORDERED: EPINEPHrine/PF 1 MG/1 ML (1:1,000) AMPULE IVPUSH PRN (10:16)
[2018-01-06] MEDS ORDERED: methylPREDNISolone NA SUCC 40 MG/1 ML VIAL IVPUSH PRN (10:20)
[2018-01-06 10:37] LABS: BASO % 0.7 % (0-2.0); EOS % 0.3 % (0-4.5); HEMATOCRIT 38.7 % (32.4-45.2); HEMOGLOBIN 13.1 GM/dl (10.7-15.3); LYMPH % 33.5 % (8-40); MCH 29.4 pg (25.7-33.7); MCHC 33.8 g/dl (32.0-36.0); MEAN CELL VOLUME 86.8 fl (80-96); MEAN PLT VOLUME 7.7 fl (7.5-11.1); MONO % 7.9 % (3.8-10.2); NEUT % 57.6 % (42.8-82.8); PLATELET COUNT 431 K/MM3 (134-434); RBC 4.46 M/mm3 (3.60-5.2); RDW 12.8 % (11.6-15.6); WHITE BLOOD COUNT 5.9 K/mm3 (4.0-10.8)
[2018-01-06] MEDS ORDERED: INFLIXIMAB IVPB ONE (10:45)
[2018-01-06] MEDS ORDERED: SODIUM CHLORIDE IVPB ONE (10:45)
[2018-01-06 11:09] LABS: AMYLASE 84 U/L (25-125); ANION GAP 8 (8-16); BLOOD UREA NITROGEN 12 mg/dl (7-18); CALCIUM 9.1 mg/dl (8.4-10.2); CHLORIDE 104 mmol/L (98-107); CHOLESTEROL 214 mg/dl; CO2 26 mmol/L (22-28); CREATININE 0.6 mg/dl (0.6-1.3); GLUCOSE,RANDOM 171 mg/dl (74-106); HDL CHOLESTEROL 58 mg/dl (29-89); LDL CHOLESTEROL (ONLY DFH) 117 mg/dl; POTASSIUM 3.4 mmol/L (3.5-5.1); SODIUM 138 mmol/L (136-145); TRIGLYCERIDES 196 mg/dl (35-160)
[2018-01-06] MEDS ORDERED: PT OWN MED DRAWER 7, Y5N ONE (11:51)
[2018-01-06 12:34] LABS: ALBUMIN 3.9 g/dl (3.5-5.0); ALK PHOS 57 U/L (32-92); ANION GAP 9 (8-16); BILIRUBIN,TOTAL 0.5 mg/dl (0.2-1.0); BLOOD UREA NITROGEN 13 mg/dl (7-18); CALCIUM 9.1 mg/dl (8.4-10.2); CHLORIDE 104 mmol/L (98-107); CO2 25 mmol/L (22-28); CREATININE 0.5 mg/dl (0.6-1.3); GLUCOSE,RANDOM 172 mg/dl (74-106); POTASSIUM 3.4 mmol/L (3.5-5.1); SGOT/AST 18 U/L (10-42); SGPT/ALT 14 U/L (10-40); SODIUM 138 mmol/L (136-145); TOT PROT 6.7 g/dl (6.4-8.3)
[2018-01-06 14:02] VITALS: PULSE 88
[2018-01-06 17:12] VITALS: BP 120/66; TEMP 98.8
== END 2018-01-06 17:45 | disposition home or self-care (01) ==
LOC: FINFUSION 09:19 → FM/S 09:38 → FINFUSION 17:45
PROVIDERS: ATTEND Internal Medicine Gastroenterology
PROC: 3E03305 Introduction of Other Antineoplastic into Peripheral Vein, Percutaneous Approach (ICD-10-PCS; principal; 2018-01-06)
PROC: 3E033GC Introduction of Other Therapeutic Substance into Peripheral Vein, Percutaneous Approach (ICD-10-PCS; 2018-01-06)
PROC: 3E0337Z Introduction of Electrolytic and Water Balance Substance into Peripheral Vein, Percutaneous Approach (ICD-10-PCS; 2018-01-06)
DX: K51.90 Ulcerative colitis, unspecified, without complications (principal)
CPT/HCPCS: 36415; 80048; 80053; 80061; 82150; 85025; 85651; 86140; 96360; 96361; 96367; 96413; 96415; J1745

== ENCOUNTER 2018-03-10 08:58 | Day surgery (SDC) | payer OTHER, MEDICARE ==
[2018-03-10] MEDS ORDERED: SODIUM CHLORIDE 250 ML IV ONE ×2 (09:00→10:30)
[2018-03-10] MEDS ORDERED: INFLIXIMAB IVPB ONE (09:15)
[2018-03-10] MEDS ORDERED: ACETAMINOPHEN 500 MG TABLET (FP) PO ONE (09:15)
[2018-03-10] MEDS ORDERED: HYDROCORTISONE SOD SUCCINATE 100 MG/2 ML VIAL IVPB ONE (09:15)
[2018-03-10] MEDS ORDERED: SODIUM CHLORIDE IVPB ONE (09:15)
[2018-03-10] MEDS ORDERED: ACETAMINOPHEN 500 MG TABLET (FP) ONE (09:32)
[2018-03-10] MEDS ORDERED: HYDROCORTISONE ONE (09:35)
[2018-03-10 10:08] LABS: BASO % 0.7 % (0-2.0); EOS % 1.9 % (0-4.5); HEMATOCRIT 40.4 % (32.4-45.2); HEMOGLOBIN 13.4 GM/dL (10.7-15.3); LYMPH % 32.7 % (8-40); MCH 28.7 pg (25.7-33.7); MCHC 33.3 g/dl (32.0-36.0); MEAN CELL VOLUME 86.2 fl (80-96); MEAN PLT VOLUME 8.1 fl (7.5-11.1); MONO % 10.5 % (3.8-10.2); NEUT % 54.2 % (42.8-82.8); PLATELET COUNT 379 K/MM3 (134-434); RBC 4.68 M/mm3 (3.60-5.2); RDW 14.2 % (11.6-15.6); WHITE BLOOD COUNT 7.2 K/mm3 (4.0-10.0)
[2018-03-10 10:43] LABS: ALBUMIN 3.8 g/dl (3.4-5.0); ALK PHOS 64 U/L (45-117); AMYLASE 74 U/L (25-115); ANION GAP 6 (8-16); BILIRUBIN,DIRECT < 0.2 mg/dL (0.0-0.2); BILIRUBIN,TOTAL 0.3 mg/dL (0.2-1.0); BLOOD UREA NITROGEN 15 mg/dL (7-18); CALCIUM 9.2 mg/dL (8.5-10.1); CHLORIDE 107 mmol/L (98-107); CO2 29 mmol/L (21-32); CREATININE 0.7 mg/dL (0.55-1.02); GLUCOSE,RANDOM 115 mg/dL (74-106); POTASSIUM 3.9 mmol/L (3.5-5.1); SGOT/AST 13 U/L (15-37); SGPT/ALT 24 U/L (12-78); SODIUM 142 mmol/L (136-145); TOT PROT 7.5 g/dl (6.4-8.2)
[2018-03-10] MEDS ORDERED: methylPREDNISolone NA SUCC 40 MG/1 ML VIAL ONE (11:49)
[2018-03-10 13:59] LABS: ERYTHROCYTE SEDIMENTATION RATE 15 mm/hr (0-30)
[2018-03-10 16:39] VITALS: BP 131/76; PULSE 75; TEMP 97.4
== END 2018-03-10 16:55 | disposition home or self-care (01) ==
LOC: JCHEMO 08:58
PROVIDERS: ATTEND Internal Medicine Gastroenterology
DX: K51.90 Ulcerative colitis, unspecified, without complications (principal)
CPT/HCPCS: 36415; 80048; 80076; 82150; 85025; 85651; 86140; 96367; J1745

== ENCOUNTER 2018-04-24 09:11 | Day surgery (SDC) | payer OTHER, MEDICARE ==
[2018-04-24] MEDS ORDERED: HYDROCORTISONE SOD SUCCINATE 100 MG/2 ML VIAL IVPB ONE (09:30)
[2018-04-24] MEDS ORDERED: ACETAMINOPHEN 500 MG TABLET (FP) PO ONE (09:30)
[2018-04-24 09:31] LABS: BASO % 0.8 % (0-2.0); EOS % 1.6 % (0-4.5); HEMATOCRIT 40.9 % (32.4-45.2); HEMOGLOBIN 13.6 GM/dL (10.7-15.3); LYMPH % 32.3 % (8-40); MCH 28.8 pg (25.7-33.7); MCHC 33.4 g/dl (32.0-36.0); MEAN CELL VOLUME 86.2 fl (80-96); MEAN PLT VOLUME 7.6 fl (7.5-11.1); MONO % 9.2 % (3.8-10.2); NEUT % 56.1 % (42.8-82.8); PLATELET COUNT 400 K/MM3 (134-434); RBC 4.74 M/mm3 (3.60-5.2); RDW 14.8 % (11.6-15.6); WHITE BLOOD COUNT 6.8 K/mm3 (4.0-10.0)
[2018-04-24 09:58] LABS: ALBUMIN 3.8 g/dl (3.4-5.0); ALK PHOS 71 U/L (45-117); AMYLASE 70 U/L (25-115); ANION GAP 6 MMOL/L (8-16); BILIRUBIN,DIRECT < 0.2 mg/dL (0.0-0.2); BILIRUBIN,TOTAL 0.3 mg/dL (0.2-1); BLOOD UREA NITROGEN 13 mg/dL (7-18); CHLORIDE 107 mmol/L (98-107); CO2 27 mmol/L (21-32); CREATININE 0.5 mg/dL (0.55-1.3); GLUCOSE,RANDOM 126 mg/dL (74-106); POTASSIUM 3.8 mmol/L (3.5-5.1); SGOT/AST 12 U/L (15-37); SGPT/ALT 19 U/L (13-61); SODIUM 140 mmol/L (136-145); TOT PROT 7.3 g/dl (6.4-8.2)
[2018-04-24] MEDS ORDERED: INFLIXIMAB IVPB ONE (10:00)
[2018-04-24] MEDS ORDERED: SODIUM CHLORIDE IVPB ONE (10:00)
[2018-04-24] MEDS ORDERED: HYDROCORTISONE ONE (10:28)
[2018-04-24] MEDS ORDERED: ACETAMINOPHEN 500 MG TABLET (FP) ONE (10:29)
[2018-04-24 11:47] LABS: ERYTHROCYTE SEDIMENTATION RATE 15 mm/hr (0-30)
[2018-04-24] MEDS ORDERED: SODIUM CHLORIDE 250 ML IV ONE (13:00)
[2018-04-24 14:55] VITALS: TEMP 98.2
[2018-04-24 16:00] VITALS: BP 128/78; PULSE 82
== END 2018-04-24 16:06 | disposition home or self-care (01) ==
LOC: JCHEMO 09:11
PROVIDERS: ATTEND Internal Medicine Gastroenterology
DX: K51.90 Ulcerative colitis, unspecified, without complications (principal)
CPT/HCPCS: 36415; 80048; 80076; 82150; 85025; 85651; 86140; 96366; 96367; 96413; 96415; J1745

== ENCOUNTER 2018-06-18 09:11 | Day surgery (SDC) | payer OTHER, MEDICARE ==
[2018-06-18 10:23] LABS: BASO % 0.7 % (0-2.0); EOS % 1.6 % (0-4.5); HEMATOCRIT 40.7 % (32.4-45.2); HEMOGLOBIN 13.3 GM/dL (10.7-15.3); LYMPH % 37.3 % (8-40); MCH 28.4 pg (25.7-33.7); MCHC 32.8 g/dl (32.0-36.0); MEAN CELL VOLUME 86.7 fl (80-96); MEAN PLT VOLUME 7.8 fl (7.5-11.1); MONO % 9.1 % (3.8-10.2); NEUT % 51.3 % (42.8-82.8); PLATELET COUNT 395 K/MM3 (134-434); RBC 4.69 M/mm3 (3.60-5.2); RDW 14.7 % (11.6-15.6)
[2018-06-18] MEDS ORDERED: HYDROCORTISONE SOD SUCCINATE 100 MG/2 ML VIAL IVPB ONE (10:30)
[2018-06-18] MEDS ORDERED: ACETAMINOPHEN 500 MG TABLET (FP) PO ONE (10:30)
[2018-06-18] MEDS ORDERED: SODIUM CHLORIDE 250 ML IV ONE ×2 (10:30→14:30)
[2018-06-18] MEDS ORDERED: HYDROCORTISONE ONE (10:52)
[2018-06-18] MEDS ORDERED: ACETAMINOPHEN 500 MG TABLET (FP) ONE (10:53)
[2018-06-18 10:59] LABS: ALK PHOS 67 U/L (45-117); AMYLASE 68 U/L (25-115); ANION GAP 7 MMOL/L (8-16); BILIRUBIN,DIRECT 0.1 mg/dL (0.0-0.2); BILIRUBIN,TOTAL 0.5 mg/dL (0.2-1); BLOOD UREA NITROGEN 13 mg/dL (7-18); CALCIUM 8.6 mg/dL (8.5-10.1); CHLORIDE 106 mmol/L (98-107); CO2 28 mmol/L (21-32); CREATININE 0.5 mg/dL (0.55-1.3); GLUCOSE,RANDOM 117 mg/dL (74-106); POTASSIUM 3.7 mmol/L (3.5-5.1); SGOT/AST 14 U/L (15-37); SGPT/ALT 23 U/L (13-61); SODIUM 140 mmol/L (136-145); TOT PROT 7.4 g/dl (6.4-8.2)
[2018-06-18] MEDS ORDERED: SODIUM CHLORIDE IVPB ONE (11:00)
[2018-06-18] MEDS ORDERED: INFLIXIMAB IVPB ONE (11:00)
[2018-06-18 14:06] LABS: ERYTHROCYTE SEDIMENTATION RATE 10 mm/hr (0-30)
[2018-06-18 15:19] VITALS: BP 116/70; PULSE 76; TEMP 98.5
== END 2018-06-18 15:50 | disposition home or self-care (01) ==
LOC: JCHEMO 09:11
PROVIDERS: ATTEND Internal Medicine Gastroenterology
DX: K51.90 Ulcerative colitis, unspecified, without complications (principal)
CPT/HCPCS: 36415; 80048; 80076; 82150; 85025; 85651; 86140; 96367; 96413; 96415; J1745

== ENCOUNTER 2018-07-17 09:09 | Day surgery (SDC) | payer OTHER, MEDICARE ==
[2018-07-17] MEDS ORDERED: ZOLEDRONIC ACID/MAN/WATER 5 MG/100 ML INFUS..BTL IVPB ONE (10:45)
[2018-07-17 11:03] VITALS: TEMP 99.3
[2018-07-17 12:33] VITALS: BP 118/61; PULSE 69
== END 2018-07-17 11:30 | disposition home or self-care (01) ==
LOC: JASU-ENDO 09:09
PROVIDERS: ATTEND Family Medicine
PROC: 3E033GC Introduction of Other Therapeutic Substance into Peripheral Vein, Percutaneous Approach (ICD-10-PCS; principal; 2018-07-17)
DX: M81.0 Age-related osteoporosis without current pathological fracture (principal)
CPT/HCPCS: 96365; J3489

== ENCOUNTER 2018-08-18 10:17 | Day surgery (SDC) | payer OTHER, MEDICARE ==
[2018-08-18 10:49] LABS: BASO % 0.6 % (0-2.0); EOS % 0.6 % (0-4.5); HEMATOCRIT 39.6 % (32.4-45.2); HEMOGLOBIN 13.7 GM/dL (10.7-15.3); LYMPH % 31.6 % (8-40); MCH 29.7 pg (25.7-33.7); MCHC 34.6 g/dl (32.0-36.0); MEAN CELL VOLUME 85.9 fl (80-96); MEAN PLT VOLUME 7.9 fl (7.5-11.1); MONO % 9.2 % (3.8-10.2); PLATELET COUNT 435 K/MM3 (134-434); RBC 4.61 M/mm3 (3.60-5.2); RDW 14.4 % (11.6-15.6)
[2018-08-18] MEDS ORDERED: ACETAMINOPHEN 500 MG TABLET (FP) PO ONE (11:00)
[2018-08-18] MEDS ORDERED: SODIUM CHLORIDE 250 ML IV ONE ×2 (11:00→14:30)
[2018-08-18] MEDS ORDERED: HYDROCORTISONE SOD SUCCINATE 100 MG/2 ML VIAL IVPB ONE (11:00)
[2018-08-18 11:26] LABS: ALBUMIN 3.9 g/dl (3.4-5.0); ALK PHOS 64 U/L (45-117); AMYLASE 67 U/L (25-115); ANION GAP 8 MMOL/L (8-16); BILIRUBIN,DIRECT 0.1 mg/dL (0.0-0.2); BILIRUBIN,TOTAL 0.4 mg/dL (0.2-1); BLOOD UREA NITROGEN 17 mg/dL (7-18); CALCIUM 9.1 mg/dL (8.5-10.1); CHLORIDE 106 mmol/L (98-107); CO2 28 mmol/L (21-32); CREATININE 0.6 mg/dL (0.55-1.3); GLUCOSE,RANDOM 133 mg/dL (74-106); POTASSIUM 3.8 mmol/L (3.5-5.1); SGOT/AST 13 U/L (15-37); SGPT/ALT 24 U/L (13-61); SODIUM 141 mmol/L (136-145); TOT PROT 7.4 g/dl (6.4-8.2)
[2018-08-18] MEDS ORDERED: INFLIXIMAB IVPB ONE (11:30)
[2018-08-18] MEDS ORDERED: SODIUM CHLORIDE IVPB ONE (11:30)
[2018-08-18] MEDS ORDERED: ACETAMINOPHEN 500 MG TABLET (FP) ONE (11:32)
[2018-08-18] MEDS ORDERED: HYDROCORTISONE ONE (11:35)
[2018-08-18 12:00] LABS: ERYTHROCYTE SEDIMENTATION RATE 14 mm/hr (0-30)
[2018-08-18 18:54] VITALS: BP 113/60; PULSE 72; TEMP 98.1
== END 2018-08-18 17:50 | disposition home or self-care (01) ==
LOC: JASU-ENDO 10:17
PROVIDERS: ATTEND Internal Medicine Gastroenterology
DX: K51.90 Ulcerative colitis, unspecified, without complications (principal)
CPT/HCPCS: 36415; 80048; 80076; 82150; 85025; 85651; 86140; 96361; 96367; 96413; 96415; J1745

== ENCOUNTER 2018-10-13 09:08 | Day surgery (SDC) | payer OTHER, MEDICARE ==
[2018-10-13 09:47] LABS: BASO % 0.7 % (0-2.0); EOS % 2.4 % (0-4.5); HEMATOCRIT 40.7 % (32.4-45.2); LYMPH % 37.3 % (8-40); MCH 30.4 pg (25.7-33.7); MCHC 34.4 g/dl (32.0-36.0); MEAN CELL VOLUME 88.4 fl (80-96); MEAN PLT VOLUME 7.6 fl (7.5-11.1); NEUT % 48.6 % (42.8-82.8); PLATELET COUNT 372 K/MM3 (134-434); RBC 4.61 M/mm3 (3.60-5.2); RDW 14.7 % (11.6-15.6)
[2018-10-13] MEDS ORDERED: SODIUM CHLORIDE 250 ML IV SCH (10:00)
[2018-10-13] MEDS ORDERED: SODIUM CHLORIDE 250 ML IV ONE ×2 (10:15→11:30)
[2018-10-13] MEDS ORDERED: HYDROCORTISONE SOD SUCCINATE 100 MG/2 ML VIAL IVPB ONE (10:15)
[2018-10-13] MEDS ORDERED: ACETAMINOPHEN 500 MG TABLET (FP) PO ONE (10:15)
[2018-10-13 10:22] LABS: ALBUMIN 3.8 g/dl (3.4-5.0); ALK PHOS 65 U/L (45-117); AMYLASE 89 U/L (25-115); ANION GAP 6 MMOL/L (8-16); BILIRUBIN,DIRECT 0.1 mg/dL (0.0-0.2); BILIRUBIN,TOTAL 0.3 mg/dL (0.2-1); BLOOD UREA NITROGEN 18 mg/dL (7-18); CALCIUM 8.9 mg/dL (8.5-10.1); CHLORIDE 107 mmol/L (98-107); CO2 28 mmol/L (21-32); CREATININE 0.6 mg/dL (0.55-1.3); GLUCOSE,RANDOM 107 mg/dL (74-106); POTASSIUM 3.9 mmol/L (3.5-5.1); SGOT/AST 12 U/L (15-37); SGPT/ALT 19 U/L (13-61); SODIUM 142 mmol/L (136-145); TOT PROT 7.1 g/dl (6.4-8.2)
[2018-10-13] MEDS ORDERED: INFLIXIMAB IVPB ONE (10:45)
[2018-10-13] MEDS ORDERED: SODIUM CHLORIDE IVPB ONE (10:45)
[2018-10-13] MEDS ORDERED: ACETAMINOPHEN 500 MG TABLET (FP) ONE (10:53)
[2018-10-13] MEDS ORDERED: HYDROCORTISONE ONE (11:01)
[2018-10-13 11:37] LABS: ERYTHROCYTE SEDIMENTATION RATE 3 mm/hr (0-30)
[2018-10-13 15:52] VITALS: BP 135/80; PULSE 80; TEMP 98.5
== END 2018-10-13 16:49 | disposition home or self-care (01) ==
LOC: JCHEMO 09:08
PROVIDERS: ATTEND Internal Medicine Gastroenterology
DX: K51.90 Ulcerative colitis, unspecified, without complications (principal)
CPT/HCPCS: 36415; 80048; 80076; 82150; 85025; 85651; 86140; 96367; 96413; 96415; J1745

== ENCOUNTER 2018-12-17 09:57 | Day surgery (SDC) | payer OTHER, MEDICARE ==
[~2018-12-17 09:57] MED LIST changes: +ACETAMINOPHEN 500 MG TABLET (FP) PO ONE; +HYDROCORTISONE SOD SUCCINATE 100 MG/2 ML VIAL IVPB ONE; +INFLIXIMAB IVPB ONE; +SODIUM CHLORIDE IVPB ONE
[2018-12-17 10:27] LABS: BASO % 1.1 % (0-2.0); EOS % 0.9 % (0-4.5); HEMATOCRIT 41.8 % (32.4-45.2); HEMOGLOBIN 13.7 GM/dL (10.7-15.3); LYMPH % 36.8 % (8-40); MCH 28.9 pg (25.7-33.7); MCHC 32.8 g/dl (32.0-36.0); MEAN CELL VOLUME 88.2 fl (80-96); MEAN PLT VOLUME 7.7 fl (7.5-11.1); MONO % 9.9 % (3.8-10.2); NEUT % 51.3 % (42.8-82.8); PLATELET COUNT 388 K/MM3 (134-434); RBC 4.75 M/mm3 (3.60-5.2); RDW 13.9 % (11.6-15.6); WHITE BLOOD COUNT 6.7 K/mm3 (4.0-10.0)
[2018-12-17 10:53] LABS: ALK PHOS 61 U/L (45-117); AMYLASE 86 U/L (25-115); ANION GAP 5 MMOL/L (8-16); BILIRUBIN,DIRECT 0.2 mg/dL (0.0-0.2); BILIRUBIN,TOTAL 0.4 mg/dL (0.2-1); BLOOD UREA NITROGEN 22 mg/dL (7-18); CALCIUM 9.6 mg/dL (8.5-10.1); CHLORIDE 107 mmol/L (98-107); CO2 29 mmol/L (21-32); CREATININE 0.6 mg/dL (0.55-1.3); GLUCOSE,RANDOM 118 mg/dL (74-106); POTASSIUM 4.2 mmol/L (3.5-5.1); SGOT/AST 11 U/L (15-37); SGPT/ALT 17 U/L (13-61); SODIUM 140 mmol/L (136-145); TOT PROT 7.4 g/dl (6.4-8.2)
[2018-12-17 11:34] LABS: ERYTHROCYTE SEDIMENTATION RATE 20 mm/hr (0-30)
[2018-12-17] MEDS ORDERED: SODIUM CHLORIDE 250 ML IV ONE (12:00)
[2018-12-17 18:17] VITALS: TEMP 98.8
[2018-12-17 18:36] VITALS: BP 140/80; PULSE 89
== END 2018-12-17 18:15 | disposition home or self-care (01) ==
LOC: JCHEMO 09:57
PROVIDERS: ATTEND Internal Medicine Gastroenterology
DX: K51.90 Ulcerative colitis, unspecified, without complications (principal)
CPT/HCPCS: 36415; 80048; 80076; 82150; 85025; 85651; 86140; 96367; 96413; 96415; J1745

== ENCOUNTER 2019-02-16 09:59 | Day surgery (SDC) | payer OTHER, MEDICARE ==
[2019-02-16] MEDS ORDERED: SODIUM CHLORIDE 250 ML IV ONE ×2 (10:15→14:00)
[2019-02-16] MEDS ORDERED: HYDROCORTISONE SOD SUCCINATE 100 MG/2 ML VIAL IVPB ONE (10:30)
[2019-02-16] MEDS ORDERED: ACETAMINOPHEN 500 MG TABLET (FP) PO ONE (10:30)
[2019-02-16 10:50] LABS: BASO % 0.7 % (0-2.0); EOS % 1.5 % (0-4.5); HEMATOCRIT 38.9 % (32.4-45.2); HEMOGLOBIN 13.1 GM/dL (10.7-15.3); LYMPH % 38.2 % (8-40); MCH 29.5 pg (25.7-33.7); MCHC 33.8 g/dl (32.0-36.0); MEAN CELL VOLUME 87.3 fl (80-96); MEAN PLT VOLUME 7.7 fl (7.5-11.1); MONO % 9.7 % (3.8-10.2); NEUT % 49.9 % (42.8-82.8); PLATELET COUNT 386 K/MM3 (134-434); RBC 4.45 M/mm3 (3.60-5.2); RDW 14.4 % (11.6-15.6); WHITE BLOOD COUNT 6.4 K/mm3 (4.0-10.0)
[2019-02-16] MEDS ORDERED: SODIUM CHLORIDE IVPB ONE (11:00)
[2019-02-16] MEDS ORDERED: INFLIXIMAB IVPB ONE (11:00)
[2019-02-16] MEDS ORDERED: HYDROCORTISONE ONE (11:15)
[2019-02-16] MEDS ORDERED: ACETAMINOPHEN 500 MG TABLET (FP) ONE (11:16)
[2019-02-16 11:26] LABS: ALK PHOS 63 U/L (45-117); AMYLASE 90 U/L (25-115); ANION GAP 3 MMOL/L (8-16); BILIRUBIN,DIRECT 0.1 mg/dL (0.0-0.2); BILIRUBIN,TOTAL 0.2 mg/dL (0.2-1); BLOOD UREA NITROGEN 11.6 mg/dL (7-18); CALCIUM 9.2 mg/dL (8.5-10.1); CHLORIDE 107 mmol/L (98-107); CO2 30 mmol/L (21-32); CREATININE 0.6 mg/dL (0.55-1.3); GLUCOSE,RANDOM 115 mg/dL (74-106); POTASSIUM 3.9 mmol/L (3.5-5.1); SGOT/AST 8 U/L (15-37); SGPT/ALT 18 U/L (13-61); SODIUM 141 mmol/L (136-145); TOT PROT 7.2 g/dl (6.4-8.2)
[2019-02-16 13:20] LABS: ERYTHROCYTE SEDIMENTATION RATE 13 mm/hr (0-30)
[2019-02-16 17:58] VITALS: BP 151/67; PULSE 75; TEMP 97.9
== END 2019-02-16 18:10 | disposition home or self-care (01) ==
LOC: JCHEMO 09:59
PROVIDERS: ATTEND Internal Medicine Gastroenterology
DX: K51.90 Ulcerative colitis, unspecified, without complications (principal)
CPT/HCPCS: 36415; 80048; 80076; 82150; 85025; 85651; 86140; 96366; 96367; 96413; 96415; J1745

== ENCOUNTER 2019-03-09 23:01 | Emergency (ER) | payer OTHER, MEDICARE ==
[2019-03-09 23:14] VITALS: BP 127/74; PULSE 66; TEMP 97.4; BMI 19.2
--- NOTE | 2019-03-10 00:03 | PDOC ---
History of Present Illness - General Chief Complaint: Bite Stated Complaint: POSSIBLE TICKS IN SCALP Time Seen by Provider: 03/09/19 23:53 History Source: Patient - History of Present Illness Initial Comments: 03/09/19 23:58 68 year old female noted a irritation to scalp unsure if its a tick bite. patient reports that she is outdoor hike often. denies fever/ chills , rash. patient reports picking at pimple and wanted to make sure a tick is not imbedded in the scalp. denies pmhx 03/10/19 00:00 Past History - Past Medical History Allergies/Adverse Reactions: Allergies Allergy/AdvReac Type Severity Reaction Status Date / Time codeine [Codeine] Allergy Unknown "ANXIETY,NA Verified 03/09/19 23:09 USEA" Home Medications: Ambulatory Orders Infliximab [Remicade Infusion -] 0 mg IVPB ASDIR 11/15/16 Anemia: No Asthma: No Cancer: No Cardiac Disorders: No CVA: No COPD: No CHF: No Dementia: No Diabetes: No GI Disorders: Yes (ULCERATIVE COLITIS,REFLUX) Disorders: No HTN: No Hypercholesterolemia: No Liver Disease: No Seizures: No Thyroid Disease: No - Surgical History Abdominal Surgery: No Appendectomy: No Cardiac Surgery: No Cholecystectomy: No Lung Surgery: No Neurologic Surgery: Yes (FACET INJECTION) Orthopedic Surgery: No - Immunization History Immunization Up to Date: Yes - Suicide/Smoking/Psychosocial Hx Smoking Status: No Smoking History: Never smoked Have you smoked in the past 12 months: No Number of Cigarettes Smoked Daily: 0 Cigars Per Day: 0 Hx Alcohol Use: No Drug/Substance Use Hx: No Substance Use Type: None Hx Substance Use Treatment: No Review of Systems - Review of Systems Able to Perform ROS?: Yes Is the patient limited Malay proficient: No Integumentary: Yes: Other (bite?) *Physical Exam - Vital Signs Last Vital Signs Temp Pulse Resp BP Pulse Ox 97.4 F L 66 18 127/74 97 03/09/19 23:06 03/09/19 23:06 03/09/19 23:06 03/09/19 23:06 03/09/19 23:06 - Physical Exam General Appearance: Yes: Appropriately Dressed Integumentary: positive: Other (no tick noted to scalp. wart like lesion on right frontal area of scalp) Neurologic: positive: Fully Oriented, Alert Progress Note - Progress Note Progress Note: A: wart on scalp. no insect P: dermatology follow up given bacitracin to the area *DC/Admit/Observation/Transfer Diagnosis at time of Disposition: Wart of scalp - Discharge Dispostion Disposition: HOME - Referrals Referrals: Santosh Reyes MD [Primary Care Provider] - Sujey Lora MD [Staff Physician] - - Patient Instructions Printed Discharge Instructions: Warts (Alternative Therapy) Additional Instructions: please follow up with a new business clerk as soon as possible. - Post Discharge Activity
--- NOTE | 2019-03-10 00:04 | PDOC ---
*Physical Exam - Vital Signs Last Vital Signs Temp Pulse Resp BP Pulse Ox 97.4 F L 66 18 127/74 97 03/09/19 23:06 03/09/19 23:06 03/09/19 23:06 03/09/19 23:06 03/09/19 23:06 Medical Decision Making - Medical Decision Making 03/10/19 00:04 Patient seen by the advanced practice provider under my direct supervision. Ancillary testing reviewed as necessary. I agree with plan as outlined by the advanced practice provider. *DC/Admit/Observation/Transfer Diagnosis at time of Disposition: Wart of scalp - Discharge Dispostion Disposition: HOME - Referrals Referrals: Sujey Lora MD [Staff Physician] - Santosh Reyes MD [Primary Care Provider] - - Patient Instructions Printed Discharge Instructions: Warts (Alternative Therapy) Additional Instructions: please follow up with a machine hoop maker as soon as possible. - Post Discharge Activity
== END 2019-03-10 00:06 | disposition home or self-care (01) ==
LOC: JER 23:01
DX: B07.9 Viral wart, unspecified (principal)
CPT/HCPCS: 99281-25

== ENCOUNTER 2019-04-20 10:13 | Day surgery (SDC) | payer OTHER, MEDICARE ==
[~2019-04-20 10:13] MED LIST changes: +diphenhydrAMINE HCL 25 MG CAPSULE (FP) PO ONE
[2019-04-20 10:56] LABS: BASO % 0.7 % (0-2.0); EOS % 1.1 % (0-4.5); HEMATOCRIT 40.3 % (32.4-45.2); HEMOGLOBIN 13.4 GM/dL (10.7-15.3); LYMPH % 24.1 % (8-40); MCH 29.2 pg (25.7-33.7); MCHC 33.2 g/dl (32.0-36.0); MEAN PLT VOLUME 7.6 fl (7.5-11.1); MONO % 8.8 % (3.8-10.2); NEUT % 65.3 % (42.8-82.8); PLATELET COUNT 452 K/MM3 (134-434); RBC 4.57 M/mm3 (3.60-5.2); RDW 14.7 % (11.6-15.6); WHITE BLOOD COUNT 8.5 K/mm3 (4.0-10.0)
[2019-04-20] MEDS ORDERED: HYDROCORTISONE ONE (11:55)
[2019-04-20] MEDS ORDERED: ACETAMINOPHEN 500 MG TABLET (FP) ONE (11:56)
[2019-04-20 12:23] LABS: ERYTHROCYTE SEDIMENTATION RATE 14 mm/hr (0-30)
[2019-04-20 12:26] LABS: ALBUMIN 3.9 g/dl (3.4-5.0); ALK PHOS 68 U/L (45-117); AMYLASE 86 U/L (25-115); ANION GAP 4 MMOL/L (8-16); BILIRUBIN,DIRECT 0.1 mg/dL (0.0-0.2); BILIRUBIN,TOTAL 0.2 mg/dL (0.2-1); BLOOD UREA NITROGEN 14.4 mg/dL (7-18); CALCIUM 9.3 mg/dL (8.5-10.1); CHLORIDE 106 mmol/L (98-107); CO2 30 mmol/L (21-32); CREATININE 0.7 mg/dL (0.55-1.3); GLUCOSE,RANDOM 114 mg/dL (74-106); POTASSIUM 4.2 mmol/L (3.5-5.1); SGOT/AST 12 U/L (15-37); SGPT/ALT 18 U/L (13-61); SODIUM 140 mmol/L (136-145); TOT PROT 7.2 g/dl (6.4-8.2)
[2019-04-20] MEDS: SODIUM CHLORIDE 250 ML IV ONE ×2 (12:34→16:52)
[2019-04-20 18:22] VITALS: BP 135/78; PULSE 77; TEMP 98.1
== END 2019-04-20 18:15 | disposition home or self-care (01) ==
LOC: JASU-ENDO 10:13
PROVIDERS: ATTEND Internal Medicine Gastroenterology
DX: K51.90 Ulcerative colitis, unspecified, without complications (principal)
CPT/HCPCS: 36415; 80048; 80076; 82150; 85025; 85651; 86140; 96366; 96367; 96413; 96415; J1745

== ENCOUNTER 2019-06-25 10:11 | Day surgery (SDC) | payer OTHER, MEDICARE ==
[~2019-06-25 10:11] MED LIST changes: -ACETAMINOPHEN 500 MG TABLET (FP) PO ONE; -INFLIXIMAB IVPB ONE; -SODIUM CHLORIDE 250 ML IV ONE; -SODIUM CHLORIDE IVPB ONE; -diphenhydrAMINE HCL 25 MG CAPSULE (FP) PO ONE
[2019-06-25 11:32] LABS: BASO % 0.8 % (0-2.0); EOS % 1.1 % (0-4.5); HEMATOCRIT 40.6 % (32.4-45.2); HEMOGLOBIN 13.6 GM/dL (10.7-15.3); LYMPH % 33.6 % (8-40); MCH 29.4 pg (25.7-33.7); MCHC 33.4 g/dl (32.0-36.0); MEAN CELL VOLUME 87.8 fl (80-96); MEAN PLT VOLUME 7.9 fl (7.5-11.1); NEUT % 53.5 % (42.8-82.8); PLATELET COUNT 389 K/MM3 (134-434); RBC 4.62 M/mm3 (3.60-5.2); RDW 14.1 % (11.6-15.6); WHITE BLOOD COUNT 6.8 K/mm3 (4.0-10.0)
[2019-06-25 12:20] LABS: ALBUMIN 3.8 g/dl (3.4-5.0); ALK PHOS 66 U/L (45-117); AMYLASE 85 U/L (25-115); ANION GAP 5 MMOL/L (8-16); BILIRUBIN,DIRECT 0.1 mg/dL (0.0-0.2); BILIRUBIN,TOTAL 0.8 mg/dL (0.2-1); BLOOD UREA NITROGEN 17.6 mg/dL (7-18); CALCIUM 8.8 mg/dL (8.5-10.1); CHLORIDE 104 mmol/L (98-107); CO2 28 mmol/L (21-32); CREATININE 0.6 mg/dL (0.55-1.3); GLUCOSE,RANDOM 112 mg/dL (74-106); POTASSIUM 4.2 mmol/L (3.5-5.1); SGOT/AST 11 U/L (15-37); SGPT/ALT 21 U/L (13-61); SODIUM 137 mmol/L (136-145); TOT PROT 7.2 g/dl (6.4-8.2)
[2019-06-25 12:23] LABS: ERYTHROCYTE SEDIMENTATION RATE 13 mm/hr (0-30)
[2019-06-25] MEDS ORDERED: HYDROCORTISONE ONE (12:28)
[2019-06-25] MEDS ORDERED: ACETAMINOPHEN 500 MG TABLET (FP) ONE (12:28)
[2019-06-25] MEDS ORDERED: INFLIXIMAB IVPB ONE (12:30)
[2019-06-25] MEDS ORDERED: SODIUM CHLORIDE IVPB ONE (12:30)
[2019-06-25] MEDS ORDERED: ACETAMINOPHEN 500 MG TABLET (FP) PO ONE (12:30)
[2019-06-25 18:15] VITALS: BP 138/71; PULSE 88; TEMP 98.4
== END 2019-06-25 19:20 | disposition home or self-care (01) ==
LOC: JCHEMO 10:11
PROVIDERS: ATTEND Internal Medicine Gastroenterology
DX: K51.90 Ulcerative colitis, unspecified, without complications (principal)
CPT/HCPCS: 36415; 80048; 80076; 82150; 85025; 85651; 86140; 96366; 96367; 96413; 96415; J1745

== ENCOUNTER 2019-08-27 09:02 | Day surgery (SDC) | payer OTHER, MEDICARE ==
[~2019-08-27 09:02] MED LIST changes: -HYDROCORTISONE SOD SUCCINATE 100 MG/2 ML VIAL IVPB ONE; +SODIUM CHLORIDE 250 ML IV ONE
[2019-08-27 09:31] LABS: HEMATOCRIT 41.5 % (32.4-45.2); LYMPH % 39.3 % (8-40); MCH 29.3 pg (25.7-33.7); MCHC 33.7 g/dl (32.0-36.0); MEAN CELL VOLUME 87.1 fl (80-96); MEAN PLT VOLUME 7.6 fl (7.5-11.1); MONO % 12.1 % (3.8-10.2); NEUT % 45.9 % (42.8-82.8); PLATELET COUNT 392 K/MM3 (134-434); RBC 4.77 M/mm3 (3.60-5.2); RDW 14.4 % (11.6-15.6); WHITE BLOOD COUNT 6.9 K/mm3 (4.0-10.0)
[2019-08-27 09:32] LABS: BASO % 0.9 % (0-2.0); EOS % 1.8 % (0-4.5)
[2019-08-27 09:54] LABS: ALBUMIN 4.1 g/dl (3.4-5.0); ALK PHOS 63 U/L (45-117); AMYLASE 80 U/L (25-115); ANION GAP 5 MMOL/L (8-16); BILIRUBIN,DIRECT 0.2 mg/dL (0.0-0.2); BILIRUBIN,TOTAL 1.1 mg/dL (0.2-1); BLOOD UREA NITROGEN 21.4 mg/dL (7-18); CALCIUM 8.9 mg/dL (8.5-10.1); CHLORIDE 110 mmol/L (98-107); CO2 26 mmol/L (21-32); CREATININE 0.7 mg/dL (0.55-1.3); GLUCOSE,RANDOM 137 mg/dL (74-106); POTASSIUM 3.9 mmol/L (3.5-5.1); SGOT/AST 14 U/L (15-37); SGPT/ALT 22 U/L (13-61); SODIUM 141 mmol/L (136-145); TOT PROT 7.3 g/dl (6.4-8.2)
[2019-08-27] MEDS ORDERED: ACETAMINOPHEN 500 MG TABLET (FP) PO ONE (10:00)
[2019-08-27] MEDS ORDERED: HYDROCORTISONE SOD SUCCINATE 100 MG/2 ML VIAL IVPB ONE (10:00)
[2019-08-27] MEDS ORDERED: INFLIXIMAB IVPB ONE (10:30)
[2019-08-27] MEDS ORDERED: SODIUM CHLORIDE IVPB ONE (10:30)
[2019-08-27] MEDS ORDERED: HYDROCORTISONE ONE (10:31)
[2019-08-27] MEDS ORDERED: ACETAMINOPHEN 500 MG TABLET (FP) ONE (10:31)
[2019-08-27 10:55] LABS: ERYTHROCYTE SEDIMENTATION RATE 11 mm/hr (0-30)
[2019-08-27 15:29] VITALS: TEMP 98.2
[2019-08-27 17:21] VITALS: BP 118/65; PULSE 72
== END 2019-08-27 16:56 | disposition home or self-care (01) ==
LOC: JCHEMO 09:02
PROVIDERS: ATTEND Internal Medicine Gastroenterology
DX: K50.90 Crohn's disease, unspecified, without complications (principal)
CPT/HCPCS: 36415; 80048; 80076; 82150; 85025; 85651; 86140; 96366; 96367; 96413; 96415; J1745

== ENCOUNTER 2019-09-15 23:41 | Inpatient (IN) | payer OTHER, MEDICARE ==
[2019-09-16 00:21] VITALS: BMI 20.7
--- NOTE | 2019-09-16 01:25 | PDOC ---
History of Present Illness - General Chief Complaint: Lightheaded Stated Complaint: SIZZINESS/NAUSEA Time Seen by Provider: 09/16/19 01:23 - History of Present Illness Initial Comments: 09/16/19 03:07 The patient is a 69 year old female with a history of ulcerative colitis who presents for evaluation of dizziness. The patient reports several weeks of intermittent episodes of feeling unsteady and nausea. She notes that her symptoms have become more persistent prompting her presentation to the ED for further evaluation. She notes that during these episodes, her symptoms worsen with movement and she is unable to ambulate due to unsteadiness. She denies similar symptoms in the past. She also notes headache that has been intermittent over the past month as well. She otherwise denies fevers, chills, SOB, chest pain, vomiting, numbness, tingling, weakness, or changes with urination or bowel movements. NIH Stroke Scale - Last Known Well Date/Time & Onset Date Last Known Well: 09/15/19 Time Last Known Well: 09:00 - Initial Evaluation Level of consciousness: Alert Ask patient the month and their age: Answers both correctly Ask patient to open & close eyes; make fist and let go: Obeys both correctly Best gaze (horizontal eye movement): Normal Visual field testing: No visual field loss Facial paresis (Show teeth/raise eyebrows/close eyes tight): Normal symmetrical movement Motor Function: Left Arm: Normal Motor Function: Right Arm: Normal (extends arm 90 (or 45) degrees for 10 seconds without drift Motor Function: Left Leg: Normal (extends leg 30 degrees for 5 seconds without drift) Motor Function: Right Leg: Normal (extends leg 30 degrees for 5 seconds without drift) Limb Ataxia: No ataxia Sensory(Use pinprick test arms,legs,trunk,face/side to side): Normal Best language (Describe picture, name items, read sentences): No Aphasia Dysarthria (read several words): Normal articulation Extinction and Inattention: No abnormality - Total Score NIH Stroke Scale Score: 0 Past History - Past Medical History Allergies/Adverse Reactions: Allergies Allergy/AdvReac Type Severity Reaction Status Date / Time codeine [Codeine] Allergy Unknown "ANXIETY,NA Verified 03/09/19 23:09 USEA" Home Medications: Ambulatory Orders Infliximab [Remicade Infusion -] 0 mg IVPB ASDIR 11/15/16 Anemia: No Asthma: No Cancer: No Cardiac Disorders: No CVA: No COPD: No CHF: No Dementia: No Diabetes: No GI Disorders: Yes (ULCERATIVE COLITIS,REFLUX) Disorders: No HTN: No Hypercholesterolemia: No Liver Disease: No Seizures: No Thyroid Disease: No - Surgical History Abdominal Surgery: No Appendectomy: No Cardiac Surgery: No Cholecystectomy: No Lung Surgery: No Neurologic Surgery: Yes (FACET INJECTION) Orthopedic Surgery: No - Immunization History Immunization Up to Date: Yes - Psycho Social/Smoking Cessation Hx Smoking Status: No Smoking History: Never smoked Have you smoked in the past 12 months: No Number of Cigarettes Smoked Daily: 0 Cigars Per Day: 0 Hx Alcohol Use: No Drug/Substance Use Hx: No Substance Use Type: None Hx Substance Use Treatment: No Review of Systems - Review of Systems Comments:: 09/16/19 03:12 Constitutional: No fevers, chills, fatigue, malaise HEENT: No Rhinorrhea, nasal congestion, visual changes Cardiovascular: No chest pain, syncope, palpitations, lightheadedness Respiratory: No Cough, SOB, Hemoptysis, Gastrointestinal: Nausea, No Abdominal pain, Vomiting, Constipation, Diarrhea, Melena Genitourinary: No Dysuria, Frequency, Urgency, Hesitancy, Hematuria, Flank pain Musculoskeletal: No Myalgia, arthralgia Skin: No rashes, itching, bruising, pallor Neurologic: Headache, Dizziness. No Numbness, Weakness, or Tingling Psychiatric: No Hallucinations. No SI or HI *Physical Exam - Vital Signs Last Vital Signs Temp Pulse Resp BP Pulse Ox 97.3 F L 65 20 123/79 97 09/16/19 00:17 09/16/19 00:17 09/16/19 00:17 09/16/19 00:09/16/19 00:17 - Physical Exam 09/16/19 03:12 General Appearance: Nourished. No Apparent Distress HEENT: EOMI, LEROY. No Pharyngeal Erythema, Tonsillar Exudate, Tonsillar Erythema Neck: No Cervical Lymphadenopathy Respiratory/Chest: Lungs Clear, Normal Breath Sounds. No Crackles, Rales, Rhonchi, Wheezing Cardiovascular: Regular Rhythm, Regular Rate. No Murmur, Gallops, Rubs Gastrointestinal/Abdominal: Normal Bowel Sounds, Soft. No Guarding, Rebound, Tenderness Musculoskeletal: No CVA Tenderness Extremity: Normal Capillary Refill Integumentary: Normal Color, Dry, Warm Neurologic: compressor station chief engineer II-XII NML intact, Fully Oriented, Alert, Normal Mood/Affect, Normal Response, Motor Strength 5/5. Normal Finger to Nose and Heel to [place] ED Treatment Course - LABORATORY CBC & Chemistry Diagram: 09/16/19 01:50 09/16/19 01:50 Medical Decision Making - Medical Decision Making 09/16/19 03:14 The patient is a 69 year old female with a history of ulcerative colitis who presents for evaluation of dizziness. Given the patient's history and physical exam, we will obtain a cbc, cmp, troponin, ekg, chest plain film, head CT to evaluate further. We will treat with meclazine, tylenol, reglan, benadryl and continue to monitor and reassess while here in the ED. 09/16/19 06:22 CBC, cmp, troponin were unremarkable. Head CT did not demonstrate any acute pathology as preliminarily read by our systems security consultant radiologist. The patient continues report symptoms. Given the patient's gradual worsening symptoms over the past 1 month with persistent symptoms here in the ED. She will require admission for further monitoring and management. Discharge - Discharge Information Problems reviewed: Yes Clinical Impression/Diagnosis: Dizziness Headache Qualifiers: Headache type: unspecified Headache chronicity pattern: unspecified pattern Intractability: not intractable Qualified Code(s): R51 - Headache Condition: Stable - Admission Yes - Follow up/Referral - Patient Discharge Instructions - Post Discharge Activity
--- NOTE | 2019-09-16 01:28 | PDOC ---
Attending Attestation - Resident Resident Name: Marshall Luciano - ED Attending Attestation I have performed the following: I have examined & evaluated the patient, The case was reviewed & discussed with the resident, I agree w/resident's findings & plan - HPI HPI: 09/16/19 03:05 see resident hpi - Physicial Exam PE: 09/16/19 03:05 see resident exam - Medical Decision Making 09/16/19 03:06 69-year-old female with dizziness now with headache CT scan of the brain is within normal limits Patient mildly improved with meclizine In light of patient's age and symptomatology she will be admitted for further evaluation and likely MRI in the morning
[2019-09-16] MEDS ORDERED: MECLIZINE HCL 25 MG TABLET (FP) PO ONE (01:45)
[2019-09-16] MEDS ORDERED: MECLIZINE HCL 25 MG TABLET (FP) ONE (01:53)
[2019-09-16 02:18] LABS: BASO % 1.4 % (0-2.0); EOS % 1.7 % (0-4.5); HEMATOCRIT 40.1 % (32.4-45.2); HEMOGLOBIN 13.3 GM/dL (10.7-15.3); LYMPH % 44.8 % (8-40); MCH 28.9 pg (25.7-33.7); MCHC 33.1 g/dl (32.0-36.0); MEAN CELL VOLUME 87.3 fl (80-96); MEAN PLT VOLUME 7.7 fl (7.5-11.1); MONO % 9.3 % (3.8-10.2); NEUT % 42.8 % (42.8-82.8); PLATELET COUNT 394 K/MM3 (134-434); RBC 4.59 M/mm3 (3.60-5.2); RDW 14.5 % (11.6-15.6); WHITE BLOOD COUNT 10.2 K/mm3 (4.0-10.0)
[2019-09-16 03:02] LABS: ALBUMIN 3.7 g/dl (3.4-5.0); BILIRUBIN,TOTAL 0.2 mg/dL (0.2-1); BLOOD UREA NITROGEN 17.2 mg/dL (7-18); CALCIUM 9.2 mg/dL (8.5-10.1); CREATININE 0.7 mg/dL (0.55-1.3); POTASSIUM 3.8 mmol/L (3.5-5.1)
[2019-09-16] MEDS ORDERED: METOCLOPRAMIDE HCL INJECTION 10 MG/2 ML VIAL IVPUSH ONE (03:03)
[2019-09-16] MEDS ORDERED: ACETAMINOPHEN 1000 MG/100 ML VIAL (NON FORMULARY) IVPB ONE (03:03)
[2019-09-16] MEDS ORDERED: ACETAMINOPHEN INJECTION 100 ML IVPB ONE (03:40)
[2019-09-16] MEDS ORDERED: METOCLOPRAMIDE HCL INJECTION 10 MG/2 ML VIAL ONE (03:40)
--- NOTE | 2019-09-16 06:27 | HP ---
CHIEF COMPLAINT: Dizziness PCP:Amy HISTORY OF PRESENT ILLNESS: 69-year-old woman with a history of ulcerative colitis on Remicade infusion every 8 weeks presents complaining of dizziness. She says that she has more vertigo than lightheadedness. Patient is having this intermittent dizziness for several weeks however has worsened acutely. She says that she is able to ambulate however at times her gait is unsteady due to her underlying dizziness. She has nausea however no vomiting. He denies any focal weaknesses, sensory deficits, vision or hearing changes. She does endorse a headache which is worse when she wakes up in the morning is about a 5 out of 10 in intensity. ER course was notable for: (1)Head CT (2)Meclizine (3)Reglan Recent Travel:Denied any history of recent travel PAST MEDICAL HISTORY:ulcerative colitis on Remicade infusion PAST SURGICAL HISTORY:No history of surgeries reported Social History: Smoking:no Alcohol: no Drugs: no Allergies codeine [Codeine] Allergy (Unknown, Verified 03/09/19 23:09) "ANXIETY,NAUSEA" HOME MEDICATIONS: Home Medications Medication Instructions Recorded Infliximab [Remicade Infusion -] 0 mg IVPB ASDIR 11/15/16 REVIEW OF SYSTEMS CONSTITUTIONAL: Absent: fever, chills, diaphoresis, generalized weakness, malaise, loss of appetite, weight change HEENT: Absent: rhinorrhea, nasal congestion, throat pain, throat swelling, difficulty swallowing, mouth swelling, ear pain, eye pain, visual changes CARDIOVASCULAR: Absent: chest pain, syncope, palpitations, irregular heart rate, lightheadedness , peripheral edema RESPIRATORY: Absent: cough, shortness of breath, dyspnea with exertion, orthopnea, wheezing, stridor, hemoptysis GASTROINTESTINAL: Absent: abdominal pain, abdominal distension, nausea, vomiting, diarrhea, constipation, melena, hematochezia GENITOURINARY: Absent: dysuria, frequency, urgency, hesitancy, hematuria, flank pain, genital pain MUSCULOSKELETAL: Absent: myalgia, arthralgia, joint swelling, back pain, neck pain SKIN: Absent: rash, itching, pallor HEMATOLOGIC/IMMUNOLOGIC: Absent: easy bleeding, easy bruising, lymphadenopathy, frequent infections ENDOCRINE: Absent: unexplained weight gain, unexplained weight loss, heat intolerance, cold intolerance NEUROLOGIC: Absent: focal weakness or paresthesias,, seizure, mental status changes, bladder or bowel incontinence Present dizziness, unsteady gait, headache, PSYCHIATRIC: Absent: anxiety, depression, suicidal or homicidal ideation, hallucinations. PHYSICAL EXAMINATION Vital Signs - 24 hr 09/16/19 09/16/19 09/16/19 00:17 04:40 05:46 Temperature 97.3 F L Pulse Rate 65 Pulse Rate [ 84 Left] Respiratory 20 18 Rate Blood Pressure 123/79 Blood Pressure [Left Arm] O2 Sat by Pulse 97 99 96 Oximetry (%) 09/16/19 05:49 Temperature Pulse Rate Pulse Rate [ 82 Left] Respiratory 17 Rate Blood Pressure Blood Pressure 182/96 H [Left Arm] O2 Sat by Pulse 96 Oximetry (%) GENERAL: Awake, alert, and fully oriented, in no acute distress. HEAD: Normal with no signs of trauma. EYES: Pupils equal, round and reactive to light, extraocular movements intact, sclera anicteric, conjunctiva clear. No lid lag. EARS, NOSE, THROAT: Ears normal, nares patent, oropharynx clear without exudates. Moist mucous membranes. NECK: Normal range of motion, supple without lymphadenopathy, JVD, or masses. LUNGS: Breath sounds equal, clear to auscultation bilaterally. No wheezes, and no crackles. No accessory muscle use. HEART: Regular rate and rhythm, normal S1 and S2 without murmur, rub or gallop. ABDOMEN: Soft, nontender, not distended, normoactive bowel sounds, no guarding, no rebound, no masses. MUSCULOSKELETAL: Normal range of motion at all joints. No bony deformities or tenderness. No CVA tenderness. UPPER EXTREMITIES: 2+ pulses, warm, well-perfused. No cyanosis. No clubbing. No peripheral edema. LOWER EXTREMITIES: 2+ pulses, warm, well-perfused. No calf tenderness. No peripheral edema. NEUROLOGICAL: Cranial nerves II-XII intact. Normal speech. Normal gait. PSYCHIATRIC: Cooperative. Good eye contact. Appropriate mood and affect. SKIN: Warm, dry, normal turgor, no rashes or lesions noted, normal capillary refill. Laboratory Results - last 24 hr 09/16/19 09/16/19 01:50 01:50 WBC 10.2 H RBC 4.59 Hgb 13.3 Hct 40.1 MCV 87.3 MCH 28.9 MCHC 33.1 RDW 14.5 Plt Count 394 MPV 7.7 Absolute Neuts (auto) 4.4 Neutrophils % 42.8 Lymphocytes % 44.8 H Monocytes % 9.3 Eosinophils % 1.7 Basophils % 1.4 Nucleated RBC % 0 Sodium 139 Potassium 3.8 Chloride 105 Carbon Dioxide 27 Anion Gap 7 L BUN 17.2 Creatinine 0.7 Est GFR (CKD-EPI)AfAm 103.91 Est GFR (CKD-EPI)NonAf 89.65 Random Glucose 132 H Calcium 9.2 Total Bilirubin 0.2 AST 11 L ALT 20 Alkaline Phosphatase 73 Creatine Kinase 62 Troponin I 0.01 Total Protein 7.0 Albumin 3.7 Imaging studies reviewed Head CT showed ventricular system that is midline and nondilated. No bleed, mass, skull fracture identified. ASSESSMENT/PLAN: 69-year-old woman with worsening dizziness and headache concerning for central infarct. No focal neurological deficits were identified on exam. Admit to telemetry Neurology evaluation Neurochecks Carotid Doppler Transthoracic echo Meclizine if vertigo Bedrest and fall precautions Brain MRI and MRA Speech and swallow evaluation N.p.o. Physical therapy evaluation #Inflammatory bowel disease On Remicade infusion #DVT prophylaxisheparin subcutaneously Visit type - Emergency Visit Emergency Visit: Yes ED Registration Date: 09/16/19 Care time: The patient presented to the Emergency Department on the above date and was hospitalized for further evaluation of their emergent condition. - New Patient This patient is new to me today: Yes Date on this admission: 09/16/19 - Critical Care Critical Care patient: No
[2019-09-16] MEDS ORDERED: SODIUM CHLORIDE 1,000 ML IV SCH (06:30)
[2019-09-16] MEDS: HEPARIN NA (PORCINE) 5,000 UNITS/ML 1ML VIAL SQ SCH ×2 (07:03→14:30)
[2019-09-16] MEDS ORDERED: MECLIZINE HCL 25 MG TABLET (FP) PO PRN (07:20)
--- NOTE | 2019-09-16 10:32 | PN ---
Progress Note, Physician - Current Medication List Current Medications: Active Medications Heparin Sodium (Porcine) (Heparin -) 5,000 unit SQ TID [facility] Last Admin: 09/16/19 07:03 Dose: 5,000 unit Sodium Chloride (Normal Saline -) 1,000 mls @ 42 mls/hr IV ASDIR [facility] Last Admin: 09/16/19 06:35 Dose: 42 mls/hr Meclizine HCl (Antivert -) 25 mg PO Q6H PRN PRN Reason: VERTIGO - Objective Vital Signs: Vital Signs Temperature 97.3 F L 09/16/19 00:17 Pulse Rate 103 H 09/16/19 07:04 Respiratory Rate 18 09/16/19 07:04 Blood Pressure 112/66 09/16/19 07:04 O2 Sat by Pulse Oximetry (%) 99 09/16/19 07:04 Cardiovascular: Yes: S1, S2 Respiratory: Yes: Regular, CTA Bilaterally Gastrointestinal: Yes: Normal Bowel Sounds, Soft. No: Tenderness Neurological: Yes: Alert, Oriented. No: Pre-Existing Deficit Labs: CBC, BMP 09/16/19 01:50 09/16/19 01:50 Problem List - Problems (1) Dizziness Assessment/Plan: r/o cva await mri carotid neuro and cardio Code(s): R42 - DIZZINESS AND GIDDINESS (2) Headache Assessment/Plan: as above Code(s): R51 - HEADACHE Qualifiers: Headache type: unspecified Headache chronicity pattern: unspecified pattern Intractability: not intractable Qualified Code(s): R51 - Headache (3) Colitis Code(s): K52.9 - NONINFECTIVE GASTROENTERITIS AND COLITIS, UNSPECIFIED
--- NOTE | 2019-09-16 10:41 | EKG ---
Test Reason : Blood Pressure : / mmHG Vent. Rate : 061 BPM Atrial Rate : 061 BPM P-R Int : 164 ms QRS Dur : 076 ms QT Int : 432 ms P-R-T Axes : 077 084 056 degrees QTc Int : 434 ms NORMAL SINUS RHYTHM POSSIBLE LEFT ATRIAL ENLARGEMENT CANNOT RULE OUT ANTERIOR INFARCT (CITED ON OR BEFORE 14-JUL-2014) ABNORMAL ECG Confirmed by Nestor Hendrickson MD ([id number]) on 09/16/2019 10:41:04 AM Referred By: Confirmed By:Nestor Hendrickson MD
[2019-09-16] MEDS ORDERED: ASPIRIN COATED 81 MG TABLET.EC PO SCH (10:45)
[2019-09-16] MEDS ORDERED: ASPIRIN COATED 81 MG TABLET.EC ONE (11:44)
--- NOTE | 2019-09-16 12:41 | ECHO ---
Version: 1 Name: AMERICA OLMEDO Exam: Adult Echocardiogram Study Date: 09/16/2019, 10:03 AM Age: 69 Years MMode/2D Measurements & Calculations IVSd: 0.72 cm LVIDs: 2.09 cm LVIDd: 3.6 cm LVPWd: 1.01 cm LAV (MOD-bp): 49.0 ml ACS: 1.65 cm Ao root diam: 2.7 cm LVOT diam: 2.01 cm LA dimension: 3.2 cm Doppler Measurements & Calculations MV E max rahul: 87.2 cm/sec Med E/e': 15.7 MV A max rahul: 103.6 cm/sec Med Peak E' Rahul: 5.6 cm/sec MV E/A: 0.84 Lat E/e': 16.3 Lat Peak E' Rahul: 5.4 cm/sec Ao max P.1 mmHg DIEGO(I,D): 2.25 cm Ao mean P.6 mmHg LV V1 mean: 50.4 cm/sec Ao V2 max: 112.7 cm/sec LV V1 mean P.19 mmHg PI end-d rahul: 96.4 cm/sec TR max rahul: 243.4 cm/sec TR max P.7 mmHg Procedure A complete two-dimensional transthoracic echocardiogram was performed (2D, M-mode, Doppler and color flow Doppler). Left Ventricle The left ventricular size, thickness and function are normal. The left ventricular ejection fraction is normal. Ejection Fraction = 65%. E/A reversal consistent with but not diagnostic of poor LV complian ce. The left ventricular wall motion is normal. Right Ventricle The right ventricle is normal in size and function. Atria Normal left and right atrial size and function. No evidence of ASD. Suggest bubble study if clinical ly indicated. Mitral Valve There is mild mitral annular calcification. There is trace mitral regurgitation. Tricuspid Valve The tricuspid valve is normal in structure and function. There is trace tricuspid regurgitation. Rig ht ventricular systolic pressure is 29 mmhg. Assuming the RA pressure is 5 mmHg. Aortic Valve There is mild aortic valve thickening. Pulmonic Valve The pulmonic valve is normal in structure and function. Trace to mild pulmonic valvular regurgitatio n. Great Vessels The aortic root is not well visualized. Pericardium/Pleura There is no pericardial effusion. There is no pleural effusion. Tech Comments ASC Ao: 2.8 cm. I labeled Ao ARCH accidentally. Summary Statements The left ventricular size, thickness and function are normal The left ventricular ejection fraction is normal. Ejection Fraction = 65%. There is mild mitral annular calcification. There is trace mitral regurgitation. There is trace tricuspid regurgitation. Right ventricular systolic pressure is 29 mmhg. There is mild aortic valve thickening. Trace to mild pulmonic valvular regurgitation. No evidence of ASD. Suggest bubble study if clinically indicated. MD Nestor Hendrickson 09/16/2019, 12:40 PM Ordering Physician: Odell Huerta Referring Physician: ODELL HUERTA Performed By: Leonila Rush
--- NOTE | 2019-09-16 14:08 | CON.CARD ---
Consult Consult Specialty:: Cardiology Reason for Consultation:: Dizziness - History of Present Illness Chief Complaint: Vertigo History of Present Illness: This is as 69 year old female with a PMH of ulerative colitis on Remicade. She is complaining of Vertigo-like symptoms. She stated that it was because she was NPO. No cardiac history. EKG NSR at 61 BPM with normal intervals, normal axis, PRWP across the anterior precordial leads and NSSTTW changes. Echocardiogram Normal LV function EF 61% Normal RV function Trace MR Trace TR Carotid Dopplers Intimal thickening with no hemodynamic obstructions - Past Medical History Gastrointestinal: Yes: GERD, Inflamatory Bowel Disease, Ulcerative Colitis (on remicade) - Alcohol/Substance Use Hx Alcohol Use: No - Smoking History Smoking history: Never smoked Have you smoked in the past 12 months: No Aproximately how many cigarettes per day: 0 - Social History Usual Living Arrangement: Alone ADL: Independent Occupation: taking classes for [employer] History of Recent Travel: Yes ([facility]) Home Medications - Allergies Allergies/Adverse Reactions: Allergies Allergy/AdvReac Type Severity Reaction Status Date / Time codeine [Codeine] Allergy Unknown "ANXIETY,NA Verified 03/09/19 23:09 USEA" - Home Medications Home Medications: Ambulatory Orders Infliximab [Remicade Infusion -] 0 mg IVPB ASDIR 11/15/16 Vital Signs: Vital Signs Temperature 98.0 F 09/16/19 12:20 Pulse Rate 64 09/16/19 12:20 Respiratory Rate 20 09/16/19 12:20 Blood Pressure 128/59 L 09/16/19 12:20 O2 Sat by Pulse Oximetry (%) 98 09/16/19 12:20 Constitutional: Yes: Well Nourished Eyes: Yes: WNL HENT: Yes: WNL Neck: Yes: WNL Respiratory: Yes: WNL Gastrointestinal: Yes: Soft Cardiovascular: Yes: Regular Rate and Rhythm Heart Sounds: Yes: S1, S2 Edema: No Neurological: Yes: Alert, Oriented - Other Data Labs, Other Data: CBC, BMP 09/16/19 01:50 09/16/19 01:50 Troponin, BNP 09/16/19 01:50 Troponin I 0.01 Troponin, BNP 09/16/19 01:50 Troponin I 0.01 Assessment/Plan 69 year old female with a PMH of ulerative colitis on Remicade. She is complaining of Vertigo-like symptoms. She stated that it was because she was NPO. No cardiac history. EKG NSR at 61 BPM with normal intervals, normal axis, PRWP across the anterior precordial leads and NSSTTW changes. Echocardiogram Normal LV function EF 61% Normal RV function Trace MR Trace TR Carotid Dopplers Intimal thickening with no hemodynamic obstructions No further cardiac testing required at this time. Call prn
--- NOTE | 2019-09-16 14:27 | DS ---
Physical Examination Vital Signs: Vital Signs Temperature 98.0 F 09/16/19 12:20 Pulse Rate 64 09/16/19 12:20 Respiratory Rate 20 09/16/19 12:20 Blood Pressure 128/59 L 09/16/19 12:20 O2 Sat by Pulse Oximetry (%) 98 09/16/19 12:20 Labs: CBC, BMP 09/16/19 01:50 09/16/19 01:50 Discharge Summary Problems reviewed: Yes Reason For Visit: DIZZINESS, HEADACHE Current Active Problems Dizziness (Acute) Headache (Acute) Condition: Improved - Instructions Referrals: Santosh Reyes MD [Primary Care Provider] - 1 Week Disposition: HOME - Home Medications Comprehensive Discharge Medication List: Ambulatory Orders Infliximab [Remicade Infusion -] 0 mg IVPB ASDIR 11/15/16 Aspirin Coated [Ecotrin -] 81 mg PO DAILY tablet.ec 09/16/19 Meclizine HCl [Antivert -] 25 mg PO Q6H PRN #30 tablet 09/16/19 Rosuvastatin [Crestor -] 10 mg PO HS #30 tablet 09/16/19
[2019-09-16 14:48] VITALS: BP 133/64; PULSE 70; TEMP 98.3
--- NOTE | 2019-09-16 17:44 | PN ---
Progress Note, [employer] APPLICATION ARCHITECT - Note Progress Note: Pt was referred for swallow evaluation. ENTERPRISE APPLICATION ARCHITECT unable to see pt as she was discharged to home.
[2019-09-16] MEDS ORDERED: ROSUVASTATIN CA 10 MG TABLET (FP) PO SCH (22:00)
--- NOTE | 2019-09-17 15:14 | EKG ---
Test Reason : Blood Pressure : / mmHG Vent. Rate : 070 BPM Atrial Rate : 070 BPM P-R Int : 152 ms QRS Dur : 074 ms QT Int : 410 ms P-R-T Axes : 072 086 067 degrees QTc Int : 442 ms NORMAL SINUS RHYTHM NORMAL ECG WHEN COMPARED WITH ECG OF 16-SEP-2019 03:14, NO SIGNIFICANT CHANGE WAS FOUND Confirmed by KATIA FOX MD ([id number]) on 09/17/2019 3:14:27 PM Referred By: Confirmed By:KATIA FOX MD
== END 2019-09-16 15:16 | disposition home or self-care (01) | DRG 103 ==
LOC: JER 23:41 → JERBED 09-16 04:08
PROVIDERS: ADMIT Internal Medicine; ATTEND Family Medicine
DX: R51 Headache (principal); K51.90 Ulcerative colitis, unspecified, without complications; R42 Dizziness and giddiness
CPT/HCPCS: 36415; 70450-TC; 70551-TC; 71045-TC-FY; 80053; 80061; 82550; 82607; 83036; 83721; 84443; 84484; 85025; 93005; 93010; 93306-TC; 93880-TC; 99285-25; J0131; J1644; J7030

== ENCOUNTER 2020-02-24 10:20 | Day surgery (SDC) | payer OTHER, MEDICARE ==
[2020-02-24 11:27] VITALS: PULSE 73; TEMP 98.9
[2020-02-24] MEDS ORDERED: ZOLEDRONIC ACID/MAN/WATER 5 MG/100 ML INFUS..BTL IVPB ONE (11:30)
[2020-02-24 11:41] LABS: ALBUMIN 3.9 g/dl (3.4-5.0); BILIRUBIN,TOTAL 0.5 mg/dL (0.2-1); BLOOD UREA NITROGEN 16.2 mg/dL (7-18); CALCIUM 9.3 mg/dL (8.5-10.1); CREATININE 0.6 mg/dL (0.55-1.3); TOT PROT 7.4 g/dl (6.4-8.2)
[2020-02-24 12:32] VITALS: BP 106/63
== END 2020-02-24 12:33 | disposition home or self-care (01) ==
LOC: JCHEMO 10:20
PROVIDERS: ATTEND Family Medicine
PROC: 3E033GC Introduction of Other Therapeutic Substance into Peripheral Vein, Percutaneous Approach (ICD-10-PCS; principal; 2020-02-24)
DX: M81.0 Age-related osteoporosis without current pathological fracture (principal)
CPT/HCPCS: 36415; 80053; 96365; J3489

== ENCOUNTER 2020-04-06 11:59 | Emergency (ER) | payer OTHER, MEDICARE ==
[2020-04-06 12:18] VITALS: BP 130/52; PULSE 81; TEMP 98.5; BMI 21.8
[2020-04-06] MEDS ORDERED: FAMOTIDINE 20 MG/50 ML IVPB 20 MG/50 ML MG IVPB ONE ×2 (12:52→13:07)
[2020-04-06] MEDS ORDERED: CLINDAMYCIN 600MG PREMIX IVPB 600 MG/50 ML BAG IVPB ONE ×2 (12:52→13:07)
[2020-04-06] MEDS ORDERED: DEXAMETHASONE SOD PHOSPHATE 10 MG/1 ML VIAL IVPUSH ONE (12:52)
[2020-04-06] MEDS ORDERED: DEXAMETHASONE SOD PHOSPHATE 10 MG/1 ML VIAL ONE (13:07)
--- NOTE | 2020-04-06 13:41 | PDOC ---
History of Present Illness - General Chief Complaint: Bite Stated Complaint: RT HAND INJURY Time Seen by Provider: 04/06/20 12:30 - History of Present Illness Initial Comments: 04/06/20 13:35 69-year-old female autoimmune colitis on Remicade presents for evaluation of right hand swelling after bee sting. The bee sting occurred yesterday she does have malaise Past History - Medical History Allergies/Adverse Reactions: Allergies Allergy/AdvReac Type Severity Reaction Status Date / Time codeine [Codeine] Allergy Unknown "ANXIETY,NA Verified 03/09/19 23:09 USEA" Home Medications: Ambulatory Orders Infliximab [Remicade Infusion -] 0 mg IVPB ASDIR 11/15/16 Rosuvastatin [Crestor -] 10 mg PO HS #30 tablet 09/16/19 Diazepam [Valium] 5 mg PO PRN PRN 12/25/19 Clindamycin [Cleocin -] 300 mg PO Q6HPO #28 capsule 04/06/20 Anemia: No Asthma: No Cancer: No Cardiac Disorders: No CVA: No COPD: No CHF: No Dementia: No Diabetes: No GI Disorders: Yes (ULCERATIVE COLITIS,REFLUX) Disorders: No HTN: No Hypercholesterolemia: No Liver Disease: No Seizures: No Thyroid Disease: No - Surgical History Abdominal Surgery: No Appendectomy: No Cardiac Surgery: No Cholecystectomy: No Lung Surgery: No Neurologic Surgery: Yes (FACET INJECTION) Orthopedic Surgery: No - Immunization History Immunization Up to Date: Yes - Psycho-Social/Smoking History Smoking Status: No Smoking History: Never smoked Have you smoked in the past 12 months: No Number of Cigarettes Smoked Daily: 0 Cigars Per Day: 0 - Substance Abuse Hx (Audit-C & DAST Scrn) How often the patient has a drink containing alcohol: Never Score: In Men: 4 or > Positive; In Women: 3 or > Positive: 0 Screen Result (Pos requires Nsg. Audit-10AR): Negative In the last yr the pt used illegal drug/Rx for NonMed reason: No Score: Yes response is considered Positive: 0 Screen Result (Positive result requires Nsg. DAST-10): Negative Review of Systems - Review of Systems Constitutional: Yes: Chills, Malaise. No: Diaphoresis, Fever *Physical Exam - Vital Signs Last Vital Signs Temp Pulse Resp BP Pulse Ox 98.5 F 81 19 130/52 L 98 04/06/20 12:14 04/06/20 12:14 04/06/20 12:14 04/06/20 12:14 04/06/20 12:14 - Physical Exam 04/06/20 13:37 Swelling at the dorsum of the right hand and fingers extending proximally to the distal dorsum of the forearm. 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 no gross sensorimotor deficits neurovascular intact 04/06/20 13:37 There is warmth and mild erythema at the dorsum of the hand without induration no areas of fluctuance the edema at the dorsum of the hand also extends to the dorsum of the fingers ED Treatment Course - Medications Given in the ED: ED Medications Discontinued Medications Generic Name Dose Route Start Last Admin Trade Name Freq PRN Reason Stop Dose Admin Dexamethasone Sodium Phosphate 10 mg 04/06/20 12:52 04/06/20 13:20 Decadron Injection - IVPUSH 04/06/20 12:53 10 mg ONCE ONE Administration Diphenhydramine HCl 25 mg 04/06/20 12:52 04/06/20 13:20 Benadryl Injection - IVPB 04/06/20 12:53 25 mg ONCE ONE Administration Famotidine/Sodium Chloride 20 mg in 50 mls @ 100 mls/hr 04/06/20 12:52 04/06/20 13:20 Pepcid 20 Mg Premixed Ivpb - IVPB 04/06/20 13:21 100 mls/hr ONCE ONE Administration Clindamycin Phosphate 600 mg in 50 mls @ 100 mls/hr 04/06/20 12:52 04/06/20 13:20 Cleocin 600 Mg Premix Ivpb - IVPB 04/06/20 13:21 100 mls/hr ONCE ONE Administration Medical Decision Making - Medical Decision Making 04/06/20 13:38 Patient was adamant about receiving IV antibiotics. I chose clindamycin because of MRSA coverage. 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 I explained to her the risk of C. difficile especially being immunocompromised and receiving steroids. I think clindamycin is a reasonable choice and she requires close follow-up with her primary care physician. I will have her follow-up with her primary care physician as well as hand surgery for reevaluation in 24 hours or returning to the emergency room for reevaluation should she not get timely follow-up I have reviewed the pathophysiology with the patient. They are in agreement with the treatment plan all questions were answered to their satisfaction. Understanding for follow-up without fail was also conveyed to the patient. Again they are in agreement. Discharge - Discharge Information Problems reviewed: Yes Clinical Impression/Diagnosis: Cellulitis of hand Condition: Stable Disposition: HOME - Admission No - Additional Discharge Information Prescriptions: Clindamycin [Cleocin -] 300 mg PO Q6HPO #28 capsule - Follow up/Referral Referrals: Santosh Reyes MD [Primary Care Provider] - Samson Adams MD [Staff Physician] - - Patient Discharge Instructions Additional Instructions: Tylenol as directed for pain. Please take the antibiotics as directed. Remember the antibiotics we discussed may cause a colitis which is infectious you require close follow-up with your primary care physician as well as close follow-up with hand surgery. Follow-up should be done within 24 hours. If you cannot get follow-up please return to the emergency room tomorrow for a wound check and reevaluation. Please take the antibiotics as directed and finish the entire course as long as there is no indication of diarrhea or abdominal pain. - Post Discharge Activity
== END 2020-04-06 13:45 | disposition home or self-care (01) ==
LOC: JERFT 11:59
PROC: 3E03329 Introduction of Other Anti-infective into Peripheral Vein, Percutaneous Approach (ICD-10-PCS; principal; 2020-04-06)
PROC: 3E033GC Introduction of Other Therapeutic Substance into Peripheral Vein, Percutaneous Approach (ICD-10-PCS; 2020-04-06)
DX: L03.113 Cellulitis of right upper limb (principal)
CPT/HCPCS: 99284-25; J1100

== ENCOUNTER 2020-04-20 04:59 | Day surgery (SDC) | payer OTHER, MEDICARE ==
--- OUTSIDE RECORDS SUMMARY | 2020-04-20 05:11 | XMS ---
:1950 Author Organization [facility] Support Name Relationship Address Phone RE, RETIRED Unavailable Unavailable Unavailable RE Unavailable Unavailable Unavailable UE Unavailable Unavailable Unavailable CARLIE OLMEDO SISTER [address] [facility] [place] [address] [place] [employer] [address] [place] [address] ARDEN PICKETT Other [address] [address] Re-disclosure Warning The records that you are about to access may contain information from federally- assisted alcohol or drug abuse programs. If such information is present, then the following federally mandated warning applies: This information has been disclosed to you from records protected by federal confidentiality rules (42 CFR part 2). The federal rules prohibit you from making any further disclosure of this information unless further disclosure is expressly permitted by the written consent of the person to whom it pertains or as otherwise permitted by 42 CFR part 2. A general authorization for the release of medical or other information is NOT sufficient for this purpose. The Federal rules restrict any use of the information to criminally investigate or prosecute any alcohol or drug abuse patient.The records that you are about to access may contain highly sensitive health information, the redisclosure of which is protected by Article 27-F of the [facility] Public Health law. If you continue you may haveaccess to information: Regarding HIV / AIDS; Provided by facilities licensed or operated by the [facility] Office of Mental Health; or Provided by the [facility] Office for People With Developmental Disabilities. If such information is present, then the following [facility] mandated warning applies: This information has been disclosed to you from confidential records which are protected by state law. State law prohibits you from making any further disclosure of this information without the specific written consent of the person to whom it pertains, or as otherwise permitted by law. Any unauthorized further disclosure in violation of state law may result in a fine or snf sentence or both. A general authorization for the release of medical or other information is NOT sufficient authorization for further disclosure. Insurance Providers Payer name Policy type Policy ID Covered Covered republican's Policy P veronica / Coverage republican ID relationship to Hassan Inf ormation type hassan [facility] [id number] SP [id number] CARE OPTIONS MEDICARE [id number] SP [id number] [facility] [id number] SP [id number] CARE OPTIONS [facility] [id number] SP [id number] C[employer] MEDICARE [id number] SP [id number] [facility] [id number] SP [id number] [employer] MEDICARE [id number] SP [id number] A Results ID Date Data Source [id number] 04/15/2020 03:10:00 PM EDT [facility] Name Value Range Interpretation Description Data Sup porting Code Source(s) Document(s ) SARS [facility] coronavirus 2 RNA This lab was ordered by [facility] and reported by [facility]. ID Date Data Source [id number] 04/07/2020 04:13:00 PM EDT [facility] Name Value Range Interpretation Description Data Sup porting Code Source(s) Document(s ) SARS [facility] coronavirus 2 RNA This lab was ordered by [facility] and reported by [facility]. ID Date Data Source [id number] 04/05/2020 01:52:00 PM EDT [facility] Name Value Range Interpretation Description Data Sup porting Code Source(s) Document(s ) SARS [facility] coronavirus 2 RNA This lab was ordered by [facility] and reported by [facility]. ID Date Data Source [id number] 02/22/2020 02:26:00 PM EDT [facility] Name Value Range Interpretation Description Data Sup porting Code Source(s) Document(s ) SARS [facility] coronavirus 2 RNA This lab was ordered by [facility] and reported by [facility]. ID Date Data Source [id number] 01/19/2020 12:00:00 AM EDT [facility] Name Value Range Interpretation Code Description Data Gabrielle rce(s) Supporting Document(s ) COV2 [facility] This lab was ordered by ERLIN and shawna carlson by [facility]. ID Date Data Source [id number] 12/22/2019 11:10:00 AM EDT [facility] Name Value Range Interpretation Description Data Sup porting Code Source(s) Document(s ) SARS [facility] CORONAVIRUS 2 RNA This lab was ordered by [facility] and reported by [facility]. Procedure
[2020-04-20] MEDS ORDERED: SODIUM CHLORIDE 250 ML IV ONE (10:00)
[2020-04-20] MEDS ORDERED: HYDROCORTISONE SOD SUCCINATE 100 MG/2 ML VIAL IVPB ONE (10:00)
[2020-04-20] MEDS ORDERED: ACETAMINOPHEN 500 MG TABLET (FP) PO ONE (10:00)
[2020-04-20] MEDS ORDERED: INFLIXIMAB ABDA IVPB ONE (10:30)
[2020-04-20] MEDS ORDERED: SODIUM CHLORIDE IVPB ONE (10:30)
[2020-04-20] MEDS ORDERED: ACETAMINOPHEN 500 MG TABLET (FP) ONE (11:41)
[2020-04-20] MEDS ORDERED: HYDROCORTISONE SOD SUCCINATE 100 MG/2 ML VIAL ONE (11:41)
[2020-04-20 15:31] VITALS: TEMP 98.2
[2020-04-20 17:53] VITALS: BP 110/71; PULSE 72
== END 2020-04-20 17:15 | disposition home or self-care (01) ==
LOC: JCHEMO 04:59
PROVIDERS: ATTEND Internal Medicine Gastroenterology
DX: K51.90 Ulcerative colitis, unspecified, without complications (principal)
CPT/HCPCS: 96367; 96413; 96415

== ENCOUNTER 2020-06-15 04:49 | Day surgery (SDC) | payer OTHER, MEDICARE ==
[2020-06-15] MEDS ORDERED: ACETAMINOPHEN 500 MG TABLET (FP) PO ONE (10:00)
[2020-06-15] MEDS ORDERED: diphenhydrAMINE HCL 25 MG CAPSULE (FP) PO ONE (10:00)
[2020-06-15] MEDS ORDERED: SODIUM CHLORIDE 250 ML IV ONE ×2 (10:00→13:30)
[2020-06-15] MEDS ORDERED: HYDROCORTISONE SOD SUCCINATE 100 MG/2 ML VIAL IVPB ONE (10:00)
[2020-06-15] MEDS ORDERED: INFLIXIMAB ABDA IVPB ONE (10:30)
[2020-06-15] MEDS ORDERED: SODIUM CHLORIDE IVPB ONE (10:30)
[2020-06-15 11:09] LABS: BASO % 0.6 % (0-2.0); EOS % 0.9 % (0-4.5); HEMATOCRIT 40.7 % (32.4-45.2); HEMOGLOBIN 13.6 GM/dL (10.7-15.3); LYMPH % 32.1 % (8-40); MCH 29.2 pg (25.7-33.7); MCHC 33.5 g/dl (32.0-36.0); MEAN CELL VOLUME 87.2 fl (80-96); MONO % 7.8 % (3.8-10.2); NEUT % 58.6 % (42.8-82.8); PLATELET COUNT 407 K/MM3 (134-434); RBC 4.66 M/mm3 (3.60-5.2); RDW 14.4 % (11.6-15.6); WHITE BLOOD COUNT 8.6 K/mm3 (4.0-10.0)
[2020-06-15 11:19] LABS: CHLORIDE 107 mmol/L (98-107); POTASSIUM 4.1 mmol/L (3.5-5.1); SODIUM 138 mmol/L (136-145)
[2020-06-15 11:21] LABS: ANION GAP 4 MMOL/L (8-16); BLOOD UREA NITROGEN 12.3 mg/dL (7-18); CALCIUM 9.4 mg/dL (8.5-10.1); CO2 27 mmol/L (21-32); GLUCOSE,RANDOM 104 mg/dL (74-106)
[2020-06-15] MEDS ORDERED: ACETAMINOPHEN 500 MG TABLET (FP) ONE (11:21)
[2020-06-15] MEDS ORDERED: HYDROCORTISONE SOD SUCCINATE 100 MG/2 ML VIAL ONE (11:21)
[2020-06-15 11:22] LABS: AMYLASE 70 U/L (25-115)
[2020-06-15 11:24] LABS: BILIRUBIN,DIRECT 0.1 mg/dL (0.0-0.2); CREATININE 0.6 mg/dL (0.55-1.3); SGOT/AST 13 U/L (15-37); SGPT/ALT 17 U/L (13-61)
[2020-06-15 11:26] LABS: BILIRUBIN,TOTAL 0.3 mg/dL (0.2-1); TOT PROT 7.6 g/dl (6.4-8.2)
[2020-06-15 11:27] LABS: ALK PHOS 61 U/L (45-117)
[2020-06-15 12:17] LABS: ERYTHROCYTE SEDIMENTATION RATE 19 mm/hr (0-30)
[2020-06-15 14:37] VITALS: BMI 22.6
[2020-06-15 16:31] VITALS: BP 120/62; PULSE 78; TEMP 98.1
== END 2020-06-15 17:46 | disposition home or self-care (01) ==
LOC: JCHEMO 04:49
PROVIDERS: ATTEND Internal Medicine Gastroenterology
DX: K51.90 Ulcerative colitis, unspecified, without complications (principal)
CPT/HCPCS: 36415; 80048; 80076; 82150; 85025; 85651; 86140; 96367; 96413; 96415; Q5104

== ENCOUNTER 2020-08-10 04:30 | Day surgery (SDC) | payer OTHER, MEDICARE ==
[2020-08-10] MEDS ORDERED: HYDROCORTISONE SOD SUCCINATE 100 MG/2 ML VIAL ONE (07:42)
[2020-08-10] MEDS ORDERED: ACETAMINOPHEN 500 MG TABLET (FP) ONE (07:43)
[2020-08-10] MEDS ORDERED: HYDROCORTISONE SOD SUCCINATE 100 MG/2 ML VIAL IVPB ONE (11:00)
[2020-08-10] MEDS ORDERED: SODIUM CHLORIDE 250 ML IV ONE (11:00)
[2020-08-10] MEDS ORDERED: ACETAMINOPHEN 500 MG TABLET (FP) PO ONE (11:00)
[2020-08-10] MEDS ORDERED: SODIUM CHLORIDE IVPB ONE (11:30)
[2020-08-10] MEDS ORDERED: INFLIXIMAB ABDA IVPB ONE (11:30)
[2020-08-10 11:35] LABS: BASO % 0.6 % (0-2.0); EOS % 1.1 % (0-4.5); HEMATOCRIT 40.9 % (32.4-45.2); HEMOGLOBIN 13.6 GM/dL (10.7-15.3); LYMPH % 39.3 % (8-40); MCH 29.3 pg (25.7-33.7); MCHC 33.3 g/dl (32.0-36.0); MEAN CELL VOLUME 87.9 fl (80-96); MEAN PLT VOLUME 8.1 fl (7.5-11.1); MONO % 8.4 % (3.8-10.2); NEUT % 50.6 % (42.8-82.8); PLATELET COUNT 399 K/MM3 (134-434); RBC 4.66 M/mm3 (3.60-5.2); RDW 14.2 % (11.6-15.6); WHITE BLOOD COUNT 6.8 K/mm3 (4.0-10.0)
[2020-08-10 12:03] LABS: CHLORIDE 106 mmol/L (98-107); SODIUM 141 mmol/L (136-145)
[2020-08-10 12:06] LABS: AMYLASE 64 U/L (25-115); ANION GAP 6 MMOL/L (8-16); CO2 28 mmol/L (21-32); GLUCOSE,RANDOM 91 mg/dL (74-106)
[2020-08-10 12:08] LABS: BILIRUBIN,DIRECT 0.1 mg/dL (0.0-0.2)
[2020-08-10 12:09] LABS: CREATININE 0.6 mg/dL (0.55-1.3); SGOT/AST 9 U/L (15-37); SGPT/ALT 14 U/L (13-61)
[2020-08-10 12:10] LABS: BILIRUBIN,TOTAL 0.7 mg/dL (0.2-1); TOT PROT 7.6 g/dl (6.4-8.2)
[2020-08-10 12:11] LABS: ALK PHOS 65 U/L (45-117)
[2020-08-10 12:17] LABS: ERYTHROCYTE SEDIMENTATION RATE 16 mm/hr (0-30)
[2020-08-10 16:06] VITALS: PULSE 74
[2020-08-10 16:49] VITALS: BP 117/92; TEMP 97.6
== END 2020-08-10 18:10 | disposition home or self-care (01) ==
LOC: JCHEMO 04:30
PROVIDERS: ATTEND Internal Medicine Gastroenterology
DX: K51.90 Ulcerative colitis, unspecified, without complications (principal)
CPT/HCPCS: 36415; 80048; 80076; 82150; 85025; 85651; 86140; 96367; 96413; 96415; Q5104

== ENCOUNTER 2020-10-05 04:38 | Day surgery (SDC) | payer OTHER, MEDICARE ==
[2020-10-05] MEDS ORDERED: SODIUM CHLORIDE 250 ML IV ONE ×2 (10:00→14:00)
[2020-10-05] MEDS ORDERED: HYDROCORTISONE SOD SUCCINATE 100 MG/2 ML VIAL IVPB ONE (10:00)
[2020-10-05 10:15] LABS: BASO % 0.9 % (0-2.0); EOS % 1.8 % (0-4.5); HEMATOCRIT 40.6 % (32.4-45.2); HEMOGLOBIN 13.7 GM/dL (10.7-15.3); LYMPH % 38.7 % (8-40); MCH 29.4 pg (25.7-33.7); MCHC 33.8 g/dl (32.0-36.0); MEAN PLT VOLUME 7.7 fl (7.5-11.1); NEUT % 49.6 % (42.8-82.8); PLATELET COUNT 402 K/MM3 (134-434); RBC 4.67 M/mm3 (3.60-5.2); RDW 14.7 % (11.6-15.6); WHITE BLOOD COUNT 7.1 K/mm3 (4.0-10.0)
[2020-10-05] MEDS ORDERED: ACETAMINOPHEN 500 MG TABLET (FP) ONE (10:21)
[2020-10-05] MEDS ORDERED: HYDROCORTISONE SOD SUCCINATE 100 MG/2 ML VIAL ONE (10:21)
[2020-10-05] MEDS ORDERED: ACETAMINOPHEN 500 MG TABLET (FP) PO ONE (10:30)
[2020-10-05 10:42] LABS: BLOOD UREA NITROGEN 14.9 mg/dL (7-18); CO2 25 mmol/L (21-32); GLUCOSE,RANDOM 110 mg/dL (74-106)
[2020-10-05 10:43] LABS: AMYLASE 58 U/L (25-115)
[2020-10-05 10:45] LABS: BILIRUBIN,DIRECT 0.1 mg/dL (0.0-0.2); CREATININE 0.6 mg/dL (0.55-1.3); SGOT/AST 14 U/L (15-37)
[2020-10-05 10:47] LABS: SGPT/ALT 18 U/L (13-61); TOT PROT 7.5 g/dl (6.4-8.2)
[2020-10-05 10:48] LABS: ALK PHOS 63 U/L (45-117); BILIRUBIN,TOTAL 0.5 mg/dL (0.2-1)
[2020-10-05 10:51] LABS: ANION GAP 6 MMOL/L (8-16); CHLORIDE 107 mmol/L (98-107); POTASSIUM 3.9 mmol/L (3.5-5.1); SODIUM 139 mmol/L (136-145)
[2020-10-05] MEDS ORDERED: SODIUM CHLORIDE IVPB ONE (11:00)
[2020-10-05] MEDS ORDERED: INFLIXIMAB ABDA IVPB ONE (11:00)
[2020-10-05 14:52] LABS: ERYTHROCYTE SEDIMENTATION RATE 16 mm/hr (0-30)
[2020-10-05 16:49] VITALS: BP 118/65; PULSE 66; TEMP 97.7
== END 2020-10-05 17:16 | disposition home or self-care (01) ==
LOC: JCHEMO 04:38
PROVIDERS: ATTEND Internal Medicine Gastroenterology
DX: K51.90 Ulcerative colitis, unspecified, without complications (principal); Z76.89 Persons encountering health services in other specified circumstances
CPT/HCPCS: 36415; 80048; 80076; 82150; 85025; 85651; 86140; 96366; 96367; 96413; 96415; Q5104

== ENCOUNTER 2020-11-17 04:21 | Day surgery (SDC) | payer OTHER, MEDICARE ==
[2020-11-17] MEDS ORDERED: BUPIVACAINE HCL/PF 0.25% (2.5MG/ML) 10 ML VIAL ONE ×2 (10:07→11:02)
[2020-11-17] MEDS ORDERED: MIDAZOLAM HCL 2 MG/2 ML SINGLE DOSE VIAL ONE (10:11)
[2020-11-17] MEDS ORDERED: PROPOFOL 20 ML ONE (10:11)
[2020-11-17] MEDS ORDERED: BUPIVACAINE HCL/PF 2.5 MG/ML - 30 ML VIAL IJ ONE ×2 (10:14)
[2020-11-17] MEDS ORDERED: IOHEXOL 180 MG/1 ML ML IJ ONE ×2 (10:15)
[2020-11-17] MEDS ORDERED: DEXAMETHASONE SOD PHOSPHATE 10 MG/1 ML VIAL IVPUSH ONE (10:15)
[2020-11-17] MEDS ORDERED: LIDOCAINE HCL 1%, 10 MG/ML (50 mL VIAL) INF ONE ×2 (10:16)
[2020-11-17] MEDS ORDERED: oxyCODONE HCL 5 MG TABLET PO PRN (10:52)
[2020-11-17] MEDS ORDERED: ACETAMINOPHEN 325 MG TABLET (FP) PO PRN (10:52)
[2020-11-17] MEDS ORDERED: ONDANSETRON 4 MG/2 ML VIAL IVPUSH PRN (10:52)
[2020-11-17] MEDS ORDERED: LACTATED RINGERS SOLUTION 1,000 ML IV SCH (11:00)
[2020-11-17 11:24] VITALS: TEMP 98
[2020-11-17 14:08] VITALS: BP 136/81; PULSE 77
== END 2020-11-17 13:40 | disposition home or self-care (01) ==
LOC: JASU-SURG 04:21
PROVIDERS: ATTEND Physical Medicine & Rehabilitation
PROC: 3E0R33Z Introduction of Anti-inflammatory into Spinal Canal, Percutaneous Approach (ICD-10-PCS; 2020-11-17)
PROC: 3E0R3BZ Introduction of Anesthetic Agent into Spinal Canal, Percutaneous Approach (ICD-10-PCS; principal; 2020-11-17 09:30)
DX: M54.16 Radiculopathy, lumbar region (principal); M54.5 Low back pain
CPT/HCPCS: 76000-TC-FY; 94760; J1100

== ENCOUNTER 2020-11-22 16:20 | Emergency (ER) | payer OTHER, MEDICARE ==
[2020-11-22 16:59] VITALS: BP 128/82; PULSE 96; TEMP 97.2; BMI 21.8
[2020-11-22] MEDS ORDERED: PHENAZOPYRIDINE HCL 100 MG TABLET (FP) PO ONE ×2 (18:00→21:56)
[2020-11-22 19:05] LABS: EPI CELLS >36 /uL (0-25.1); HYALINE CASTS 21 /uL (0-3.1); PH,URINE 5.5 (5.0-8.0); URINE APPEARANCE CLEAR; URINE BACTERIA 51 /uL (0-1359); URINE BILIRUBIN NEGATIVE (NEGATIVE); URINE COLOR YELLOW; URINE GLUCOSE (UA) NEGATIVE (NEGATIVE); URINE KETONE NEGATIVE (NEGATIVE); URINE LEUK ESTERASE 1+ (NEGATIVE); URINE NITRITE NEGATIVE (NEGATIVE); URINE PROTEIN TRACE (NEGATIVE); URINE RBC 65 /uL (0-23.9); URINE UROBILINOGEN 0.2 mg/dL (0.2-1.0); URINE WBC 301 /uL (0-25.8)
[2020-11-22] MEDS ORDERED: PHENAZOPYRIDINE HCL 100 MG TABLET (FP) ONE (19:08)
[2020-11-22] MEDS ORDERED: CEPHALEXIN MONOHYDRATE 500 MG CAPSULE (UD) PO ONE (21:56)
[2020-11-22] MEDS ORDERED: CEPHALEXIN MONOHYDRATE 500 MG CAPSULE (UD) ONE (22:02)
== END 2020-11-22 22:20 | disposition home or self-care (01) ==
LOC: JER 16:20
DX: N30.01 Acute cystitis with hematuria (principal)
CPT/HCPCS: 76775-TC; 76856-TC; 81003; 87086; 99284-25

== ENCOUNTER 2020-11-30 04:52 | Day surgery (SDC) | payer OTHER, MEDICARE ==
[2020-11-30 10:56] LABS: EOS % 1.2 % (0-4.5); HEMATOCRIT 38.6 % (32.4-45.2); HEMOGLOBIN 13.1 GM/dL (10.7-15.3); LYMPH % 33.3 % (8-40); MCH 29.6 pg (25.7-33.7); MEAN CELL VOLUME 87.1 fl (80-96); MEAN PLT VOLUME 7.9 fl (7.5-11.1); NEUT % 55.5 % (42.8-82.8); PLATELET COUNT 438 K/MM3 (134-434); RBC 4.43 M/mm3 (3.60-5.2); RDW 14.4 % (11.6-15.6); WHITE BLOOD COUNT 7.5 K/mm3 (4.0-10.0)
[2020-11-30 11:12] LABS: BLOOD UREA NITROGEN 13.5 mg/dL (7-18); CALCIUM 8.5 mg/dL (8.5-10.1)
[2020-11-30 11:15] LABS: CREATININE 0.7 mg/dL (0.55-1.3)
[2020-11-30 11:24] LABS: ALBUMIN 3.6 g/dl (3.4-5.0)
[2020-11-30 11:25] LABS: CHOLESTEROL 242 mg/dL (50-200); TRIGLYCERIDES 150 mg/dL (0-150)
[2020-11-30 11:27] LABS: LDL CHOLESTEROL (ONLY SJRH) 143 mg/dL (5-100)
[2020-11-30 11:28] LABS: BILIRUBIN,DIRECT 0.1 mg/dL (0.0-0.2); HDL CHOLESTEROL 57 mg/dL (40-60)
[2020-11-30] MEDS ORDERED: ACETAMINOPHEN 500 MG TABLET (FP) PO ONE (11:30)
[2020-11-30] MEDS ORDERED: methylPREDNISolone NA SUCC 125 MG/2 ML VIAL IVPB ONE (11:30)
[2020-11-30] MEDS ORDERED: HYDROCORTISONE SOD SUCCINATE 100 MG/2 ML VIAL IVPB ONE (11:30)
[2020-11-30 11:31] LABS: BILIRUBIN,TOTAL 0.4 mg/dL (0.2-1); TOT PROT 7.3 g/dl (6.4-8.2)
[2020-11-30] MEDS ORDERED: HYDROCORTISONE SOD SUCCINATE 100 MG/2 ML VIAL ONE (11:35)
[2020-11-30] MEDS ORDERED: ACETAMINOPHEN 500 MG TABLET (FP) ONE (11:41)
[2020-11-30] MEDS ORDERED: INFLIXIMAB ABDA IVPB ONE (12:00)
[2020-11-30] MEDS ORDERED: SODIUM CHLORIDE IVPB ONE (12:00)
[2020-11-30 14:04] VITALS: PULSE 68
[2020-11-30 14:47] VITALS: TEMP 98
[2020-11-30 15:59] VITALS: BP 123/74
== END 2020-11-30 16:25 | disposition home or self-care (01) ==
LOC: JCHEMO 04:52
PROVIDERS: ATTEND Internal Medicine Gastroenterology
DX: K51.90 Ulcerative colitis, unspecified, without complications (principal)
CPT/HCPCS: 36415; 80048; 80061; 80076; 82150; 83721; 85025; 85651; 86140; 96366; 96367; 96413; 96415; Q5104

== ENCOUNTER 2021-02-11 10:35 | Day surgery (SDC) | payer OTHER, MEDICARE ==
[2021-02-11] MEDS ORDERED: SODIUM CHLORIDE 1,000 ML IV SCH (11:00)
[2021-02-11] MEDS ORDERED: INFLIXIMAB IVPB SCH (11:00)
[2021-02-11] MEDS ORDERED: SODIUM CHLORIDE IVPB SCH (11:00)
[2021-02-11] MEDS ORDERED: HYDROCORTISONE SOD SUCCINATE 100 MG/2 ML VIAL IVPB SCH (11:00)
[2021-02-11] MEDS ORDERED: ACETAMINOPHEN 500 MG TABLET (FP) PO ONE (11:00)
[2021-02-11] MEDS ORDERED: INFLIXIMAB ABDA IVPB ONE (11:30)
[2021-02-11] MEDS ORDERED: SODIUM CHLORIDE IVPB ONE (11:30)
[2021-02-11 11:48] LABS: BASO % 0.6 % (0-2.0); EOS % 1.2 % (0-4.5); HEMATOCRIT 39.7 % (32.4-45.2); HEMOGLOBIN 13.7 GM/dl (10.7-15.3); LYMPH % 37.1 % (8-40); MCH 29.8 pg (25.7-33.7); MCHC 34.6 g/dl (32.0-36.0); MEAN CELL VOLUME 86.1 fl (80-96); MONO % 7.6 % (3.8-10.2); NEUT % 53.5 % (42.8-82.8); PLATELET COUNT 390 10^3/uL (134-434); RBC 4.61 M/mm3 (3.60-5.2); RDW 13.4 % (11.6-15.6)
[2021-02-11] MEDS: diphenhydrAMINE HCL 50 MG CAPSULE PO SCH ×2 (11:50→12:34)
[2021-02-11 12:07] LABS: ALBUMIN 4.1 g/dl (3.4-5.0); ALK PHOS 55 U/L (45-117); AMYLASE 94 U/L (25-115); ANION GAP 8 MMOL/L (8-16); BILIRUBIN,TOTAL 0.4 mg/dl (0.2-1); CALCIUM 8.8 mg/dl (8.5-10); CHLORIDE 103 mmol/L (98-107); CO2 26 mmol/L (21-32); CREATININE 0.6 mg/dl (0.55-1.3); GLUCOSE,RANDOM 154 mg/dl (74-106); SGOT/AST 16 U/L (15-37); SGPT/ALT 13 U/L (13-61); SODIUM 137 mmol/L (136-145); TOT PROT 7.3 g/dl (6.4-8.2)
[2021-02-11 12:24] LABS: ERYTHROCYTE SEDIMENTATION RATE 15 mm/hr (0-30)
[2021-02-11 15:54] VITALS: BP 147/64; PULSE 71
[2021-02-11 16:50] VITALS: TEMP 98.2
[2021-02-12 14:08] LABS: SARS-CoV-2 NAA Not Detected (Not Detected)
== END 2021-02-11 17:46 | disposition home or self-care (01) ==
LOC: FINFUSION 10:35 → FM/S 10:50 → FINFUSION 17:46
PROVIDERS: ATTEND Internal Medicine Gastroenterology
PROC: 3E03305 Introduction of Other Antineoplastic into Peripheral Vein, Percutaneous Approach (ICD-10-PCS; principal; 2021-02-11)
PROC: 3E033GC Introduction of Other Therapeutic Substance into Peripheral Vein, Percutaneous Approach (ICD-10-PCS; 2021-02-11)
DX: K51.90 Ulcerative colitis, unspecified, without complications (principal)
CPT/HCPCS: 36415; 80048; 80076; 82150; 85025; 85651; 86140; 96375; 96413; 96415; C9803; Q5104; U0003; U0005

== ENCOUNTER 2021-04-29 10:30 | Day surgery (SDC) | payer OTHER, MEDICARE ==
[2021-04-29] MEDS ORDERED: SODIUM CHLORIDE 250 ML IVPB SCH (11:00)
[2021-04-29] MEDS ORDERED: ACETAMINOPHEN 500 MG TABLET (FP) PO ONE ×2 (11:00→12:30)
[2021-04-29] MEDS ORDERED: INFLIXIMAB IVPB SCH (11:00)
[2021-04-29] MEDS ORDERED: HYDROCORTISONE SOD SUCCINATE 100 MG/2 ML VIAL IVPB SCH (11:00)
[2021-04-29] MEDS ORDERED: SODIUM CHLORIDE IVPB SCH ×4 (11:00→13:35)
[2021-04-29] MEDS ORDERED: diphenhydrAMINE HCL 50 MG CAPSULE PO SCH (11:00)
[2021-04-29 11:22] VITALS: TEMP 98.8; BMI 20.7
[2021-04-29] MEDS ORDERED: INFLIXIMAB ABDA IVPB SCH ×3 (11:30→13:35)
[2021-04-29] MEDS ORDERED: SODIUM CHLORIDE 250 ML IV SCH ×2 (11:45→14:00)
[2021-04-29] MEDS ORDERED: ACETAMINOPHEN 500 MG TABLET (FP) PO PRN (12:13)
[2021-04-29 12:24] LABS: ALBUMIN 3.7 g/dl (3.4-5.0); ALK PHOS 48 U/L (45-117); AMYLASE 88 U/L (25-115); ANION GAP 12 MMOL/L (8-16); BILIRUBIN,TOTAL 0.5 mg/dl (0.2-1); CALCIUM 8.3 mg/dl (8.5-10); CHLORIDE 105 mmol/L (98-107); CO2 25 mmol/L (21-32); CREATININE 0.5 mg/dl (0.55-1.3); GLUCOSE,RANDOM 81 mg/dl (74-106); SGOT/AST 16 U/L (15-37); SGPT/ALT 13 U/L (13-61); SODIUM 142 mmol/L (136-145); TOT PROT 6.5 g/dl (6.4-8.2)
[2021-04-29] MEDS: HYDROCORTISONE SOD SUCCINATE 100 MG/2 ML VIAL IVPB SCH ×2 (12:30→13:01)
[2021-04-29 13:45] LABS: BASO % 0.8 % (0-2.0); HEMATOCRIT 39.7 % (32.4-45.2); HEMOGLOBIN 13.4 GM/dL (10.7-15.3); LYMPH % 40.1 % (8-40); MCH 29.1 pg (25.7-33.7); MCHC 33.7 g/dl (32.0-36.0); MEAN CELL VOLUME 86.4 fl (80-96); MEAN PLT VOLUME 7.8 fl (7.5-11.1); MONO % 8.1 % (3.8-10.2); PLATELET COUNT 417 10^3/uL (134-434); RDW 14.7 % (11.6-15.6); WHITE BLOOD COUNT 7.2 K/mm3 (4.0-10.0)
[2021-04-29 15:12] LABS: ERYTHROCYTE SEDIMENTATION RATE 14 mm/hr (0-30)
[2021-04-29 19:00] VITALS: BP 126/72; PULSE 76
== END 2021-04-29 18:30 | disposition home or self-care (01) ==
LOC: FINFUSION 10:30 → FM/S 10:30 → FINFUSION 10:33
PROVIDERS: ATTEND Internal Medicine Gastroenterology
PROC: 3E03305 Introduction of Other Antineoplastic into Peripheral Vein, Percutaneous Approach (ICD-10-PCS; principal; 2021-04-29)
PROC: 3E033GC Introduction of Other Therapeutic Substance into Peripheral Vein, Percutaneous Approach (ICD-10-PCS; 2021-04-29)
DX: K51.90 Ulcerative colitis, unspecified, without complications (principal)
CPT/HCPCS: 36415; 80048; 80076; 82150; 85025; 85651; 86140; 96367; 96413; 96415; 96417; Q5104

== ENCOUNTER 2021-05-28 21:12 | Emergency (ER) | payer OTHER, MEDICARE ==
[2021-05-28 21:33] VITALS: BP 121/75; PULSE 82; TEMP 98; BMI 20.7
[2021-05-28] MEDS ORDERED: ACETAMINOPHEN 325 MG TABLET (FP) ONE (23:05)
[2021-05-28] MEDS ORDERED: ACETAMINOPHEN 325 MG TABLET (FP) PO ONE (23:05)
== END 2021-05-28 23:23 | disposition home or self-care (01) ==
LOC: JER 21:12
DX: M54.89 Other dorsalgia (principal)
CPT/HCPCS: 99283-25

== ENCOUNTER 2021-05-29 04:17 | Day surgery (SDC) | payer OTHER, MEDICARE ==
[2021-05-26 17:04] VITALS: BMI 21.4
[2021-05-29] MEDS ORDERED: DEXMEDETOMIDINE HCL 200 MCG/2 ML IVPB ONE (07:12)
[2021-05-29] MEDS ORDERED: ACETAMINOPHEN INJECTION 100 ML IVPB ONE ×2 (07:12)
[2021-05-29] MEDS ORDERED: BUPIVACAINE HCL/PF 0.25% (2.5MG/ML) 10 ML VIAL ONE (07:18)
[2021-05-29] MEDS ORDERED: DEXAMETHASONE SOD PHOSPHATE 10 MG/1 ML VIAL ONE (07:18)
[2021-05-29] MEDS ORDERED: LIDOCAINE HCL/PF 1% SDV 5ML VIAL ONE (07:18)
[2021-05-29] MEDS ORDERED: LIDOCAINE HCL 2% JELLY (5 ML/TUBE) ONE (07:20)
[2021-05-29] MEDS ORDERED: PROPOFOL 20 ML ONE (07:28)
[2021-05-29] MEDS ORDERED: ONDANSETRON 4 MG/2 ML VIAL ONE (07:30)
[2021-05-29] MEDS ORDERED: LIDOCAINE HCL/PF 2% SDV 5ML VIAL ONE (07:30)
[2021-05-29] MEDS ORDERED: MIDAZOLAM HCL 2 MG/2 ML SINGLE DOSE VIAL ONE (08:39)
[2021-05-29] MEDS ORDERED: KETAMINE HCL 200 MG/20 ML VIAL ONE (08:40)
[2021-05-29] MEDS ORDERED: IOHEXOL 180 MG/1 ML ML IJ ONE (09:12)
[2021-05-29] MEDS ORDERED: BUPIVACAINE HCL/PF 0.5% (5MG/ML) 10 ML VIAL IJ ONE (09:13)
[2021-05-29] MEDS ORDERED: LIDOCAINE HCL 1% PRESERVATIVE FREE - 30ML VIAL IJ ONE (09:13)
[2021-05-29] MEDS ORDERED: DEXAMETHASONE SOD PHOSPHATE 10 MG/1 ML VIAL IVPUSH ONE (09:13)
[2021-05-29 15:09] VITALS: BP 136/70; PULSE 70; TEMP 18
== END 2021-05-29 14:30 | disposition home or self-care (01) ==
LOC: JASU-SURG 04:17
PROVIDERS: ATTEND Physical Medicine & Rehabilitation
PROC: 3E0R33Z Introduction of Anti-inflammatory into Spinal Canal, Percutaneous Approach (ICD-10-PCS; 2021-05-29)
PROC: 3E0R3BZ Introduction of Anesthetic Agent into Spinal Canal, Percutaneous Approach (ICD-10-PCS; principal; 2021-05-29 09:00)
DX: M54.16 Radiculopathy, lumbar region (principal); M54.59 Other low back pain
CPT/HCPCS: 76000-TC-FY; 94760; J0131; J1100

== ENCOUNTER 2021-07-22 11:01 | Day surgery (SDC) | payer OTHER, MEDICARE ==
[2021-07-22] MEDS ORDERED: INFLIXIMAB ABDA IVPB SCH (11:15)
[2021-07-22] MEDS ORDERED: SODIUM CHLORIDE IVPB SCH (11:15)
[2021-07-22 11:56] LABS: ALBUMIN 4.4 g/dl (3.4-5.0); BILIRUBIN,TOTAL 0.6 mg/dl (0.2-1); CALCIUM 9.4 mg/dl (8.5-10); CREATININE 0.6 mg/dl (0.55-1.3); TOT PROT 7.8 g/dl (6.4-8.2)
[2021-07-22 11:57] LABS: BILIRUBIN,DIRECT 0.1 mg/dL (0.0-0.2)
[2021-07-22] MEDS ORDERED: ACETAMINOPHEN 500 MG TABLET (FP) PO ONE (12:00)
[2021-07-22] MEDS ORDERED: HYDROCORTISONE SOD SUCCINATE 100 MG/2 ML VIAL IVPB SCH (12:00)
[2021-07-22 12:06] LABS: ERYTHROCYTE SEDIMENTATION RATE 20 mm/hr (0-30)
[2021-07-22 12:19] LABS: BASO % 0.6 % (0-2.0); EOS % 1.2 % (0-4.5); HEMATOCRIT 41.4 % (32.4-45.2); HEMOGLOBIN 14.1 GM/dL (10.7-15.3); MCH 29.8 pg (25.7-33.7); MEAN CELL VOLUME 87.5 fl (80-96); MEAN PLT VOLUME 7.5 fl (7.5-11.1); MONO % 6.8 % (3.8-10.2); NEUT % 66.4 % (42.8-82.8); PLATELET COUNT 513 10^3/uL (134-434); RBC 4.73 M/mm3 (3.60-5.2); RDW 14.6 % (11.6-15.6); WHITE BLOOD COUNT 10.5 K/mm3 (4.0-10.0)
[2021-07-22 16:56] VITALS: BP 137/71; PULSE 87; TEMP 98.3
== END 2021-07-22 17:00 | disposition home or self-care (01) ==
LOC: FINFUSION 11:01 → FM/S 11:03 → FINFUSION 17:00
PROVIDERS: ATTEND Internal Medicine Gastroenterology
PROC: 3E03305 Introduction of Other Antineoplastic into Peripheral Vein, Percutaneous Approach (ICD-10-PCS; principal; 2021-07-22)
PROC: 3E033GC Introduction of Other Therapeutic Substance into Peripheral Vein, Percutaneous Approach (ICD-10-PCS; 2021-07-22)
DX: K51.90 Ulcerative colitis, unspecified, without complications (principal)
CPT/HCPCS: 36415; 80048; 80076; 82150; 85025; 85651; 86140; 96367; 96375; 96413; 96415; Q5104

== ENCOUNTER 2021-09-30 12:07 | Day surgery (SDC) | payer OTHER, MEDICARE ==
[2021-09-30] MEDS ORDERED: SODIUM CHLORIDE IVPB SCH ×2 (12:30→12:58)
[2021-09-30] MEDS ORDERED: INFLIXIMAB ABDA IVPB SCH ×2 (12:30→12:58)
[2021-09-30] MEDS ORDERED: ACETAMINOPHEN 500 MG TABLET (FP) PO PRN (13:19)
[2021-09-30] MEDS ORDERED: HYDROCORTISONE SOD SUCCINATE 100 MG/2 ML VIAL IVPB SCH (13:30)
[2021-09-30 18:54] LABS: ALBUMIN 3.3 g/dl (3.4-5.0); ALK PHOS 47 U/L (45-117); AMYLASE 82 U/L (25-115); ANION GAP 7 MMOL/L (8-16); BILIRUBIN,TOTAL 0.2 mg/dl (0.2-1); CALCIUM 7.8 mg/dl (8.5-10); CHLORIDE 108 mmol/L (98-107); CO2 24 mmol/L (21-32); CREATININE 0.4 mg/dl (0.55-1.3); GLUCOSE,RANDOM 92 mg/dl (74-106); SGOT/AST 13 U/L (15-37); SGPT/ALT 12 U/L (13-61); SODIUM 139 mmol/L (136-145); TOT PROT 5.8 g/dl (6.4-8.2)
[2021-09-30 19:10] VITALS: BP 113/65; PULSE 75; TEMP 99.2
[2021-09-30 19:33] LABS: BASO % 0.5 % (0-2.0); EOS % 1.4 % (0-4.5); HEMATOCRIT 40.3 % (32.4-45.2); HEMOGLOBIN 13.3 GM/dL (10.7-15.3); LYMPH % 36.5 % (8-40); MCHC 33.1 g/dl (32.0-36.0); MEAN CELL VOLUME 87.7 fl (80-96); MEAN PLT VOLUME 7.8 fl (7.5-11.1); MONO % 9.4 % (3.8-10.2); NEUT % 52.2 % (42.8-82.8); PLATELET COUNT 402 10^3/uL (134-434); RBC 4.59 M/mm3 (3.60-5.2); RDW 15.1 % (11.6-15.6); WHITE BLOOD COUNT 7.9 K/mm3 (4.0-10.0)
[2021-09-30 20:23] LABS: ERYTHROCYTE SEDIMENTATION RATE 13 mm/hr (0-30)
== END 2021-09-30 19:00 | disposition home or self-care (01) ==
LOC: FINFUSION 12:07 → FM/S 12:14 → FINFUSION 19:00
PROVIDERS: ATTEND Internal Medicine Gastroenterology
PROC: 3E03305 Introduction of Other Antineoplastic into Peripheral Vein, Percutaneous Approach (ICD-10-PCS; principal; 2021-09-30)
PROC: 3E033GC Introduction of Other Therapeutic Substance into Peripheral Vein, Percutaneous Approach (ICD-10-PCS; 2021-09-30)
DX: K51.90 Ulcerative colitis, unspecified, without complications (principal)
CPT/HCPCS: 36415; 80048; 80076; 82150; 85025; 85651; 86140; 96367; 96413; 96415; Q5104

== ENCOUNTER 2022-01-06 12:46 | Day surgery (SDC) | payer OTHER, MEDICARE ==
[2022-01-06] MEDS ORDERED: SODIUM CHLORIDE IVPB SCH ×2 (13:15)
[2022-01-06] MEDS ORDERED: INFLIXIMAB IVPB SCH ×2 (13:15)
[2022-01-06 13:43] LABS: HEMOGLOBIN 15.3 G/dL (10.7-15.3); MCH 29.9 pg (25.7-33.7); MCHC 34.7 g/dl (32.0-36.0); MEAN CELL VOLUME 86.3 fl (80-96); MEAN PLT VOLUME 7.3 fl (7.5-11.1); PLATELET COUNT 449.5 10^3/uL (134-434); RDW 14.7 % (11.6-15.6); WHITE BLOOD COUNT 9.1 10^3/uL (4.0-10.8)
[2022-01-06 13:54] LABS: ALBUMIN 4.5 g/dl (3.4-5.0); BILIRUBIN,TOTAL 0.6 mg/dl (0.2-1); CALCIUM 9.5 mg/dl (8.5-10); CREATININE 0.6 mg/dl (0.55-1.3); TOT PROT 7.4 g/dl (6.4-8.2)
[2022-01-06 13:59] LABS: BILIRUBIN,DIRECT 0.1 mg/dL (0.0-0.2)
[2022-01-06 14:09] LABS: ERYTHROCYTE SEDIMENTATION RATE 14 mm/hr (0-30)
[2022-01-06] MEDS ORDERED: HYDROCORTISONE SOD SUCCINATE 100 MG/2 ML VIAL IVPB SCH (15:15)
[2022-01-06 17:00] LABS: AMYLASE 66 U/L (25-115)
[2022-01-06 17:16] VITALS: TEMP 97.9
[2022-01-06 18:06] VITALS: BP 124/68; PULSE 86
== END 2022-01-06 19:30 | disposition home or self-care (01) ==
LOC: FINFUSION 12:46 → FM/S 12:47 → FINFUSION 19:30
PROVIDERS: ATTEND Family Medicine
PROC: 3E03305 Introduction of Other Antineoplastic into Peripheral Vein, Percutaneous Approach (ICD-10-PCS; principal; 2022-01-06)
PROC: 3E033GC Introduction of Other Therapeutic Substance into Peripheral Vein, Percutaneous Approach (ICD-10-PCS; 2022-01-06)
DX: M85.80 Other specified disorders of bone density and structure, unspecified site (principal); M81.0 Age-related osteoporosis without current pathological fracture
CPT/HCPCS: 36415; 80048; 80076; 82150; 85027; 85651; 86140; 96367; 96413; 96415; J1745

== ENCOUNTER 2022-01-08 13:52 | Day surgery (SDC) | payer OTHER, MEDICARE ==
[2022-01-08] MEDS ORDERED: ZOLEDRONIC ACID/MAN/WATER 5 MG/100 ML INFUS..BTL IVPB ONE (15:00)
[2022-01-08 15:37] VITALS: BP 108/76; PULSE 96; TEMP 97.9
== END 2022-01-08 16:01 | disposition home or self-care (01) ==
LOC: FINFUSION 13:52 → FM/S 13:54 → FINFUSION 16:01
PROVIDERS: ATTEND Internal Medicine Gastroenterology
PROC: 3E033GC Introduction of Other Therapeutic Substance into Peripheral Vein, Percutaneous Approach (ICD-10-PCS; principal; 2022-01-08)
DX: K51.90 Ulcerative colitis, unspecified, without complications (principal)
CPT/HCPCS: 96365; J3489

== ENCOUNTER 2022-05-10 07:51 | Day surgery (SDC) | payer OTHER, MEDICARE ==
[2022-05-10] MEDS ORDERED: SODIUM CHLORIDE 1,000 ML IV SCH (08:45)
[2022-05-10] MEDS ORDERED: HYDROCORTISONE SOD SUCCINATE 100 MG/2 ML VIAL IVPB ONE (09:30)
[2022-05-10] MEDS ORDERED: SODIUM CHLORIDE IVPB ONE (10:00)
[2022-05-10] MEDS ORDERED: INFLIXIMAB ABDA IVPB ONE (10:00)
[2022-05-10 10:03] LABS: ALBUMIN 4.2 g/dl (3.4-5.0); ALK PHOS 55 U/L (45-117); AMYLASE 112 U/L (25-115); ANION GAP 4 MMOL/L (8-16); BILIRUBIN,TOTAL 0.5 mg/dl (0.2-1); CALCIUM 9.3 mg/dl (8.5-10); CHLORIDE 103 mmol/L (98-107); CO2 27 mmol/L (21-32); CREATININE 0.5 mg/dl (0.55-1.3); GLUCOSE,RANDOM 107 mg/dl (74-106); SGOT/AST 18 U/L (15-37); SGPT/ALT 13 U/L (13-61); SODIUM 134 mmol/L (136-145); TOT PROT 7.4 g/dl (6.4-8.2)
[2022-05-10 10:12] LABS: ERYTHROCYTE SEDIMENTATION RATE 14 mm/hr (0-30)
[2022-05-10 12:35] LABS: BASO % 0.4 % (0-2.0); EOS % 0.5 % (0-4.5); HEMATOCRIT 42.4 % (32.4-45.2); HEMOGLOBIN 14.2 GM/dL (10.7-15.3); LYMPH % 18.6 % (8-40); MCH 29.4 pg (25.7-33.7); MCHC 33.5 g/dl (32.0-36.0); MEAN CELL VOLUME 87.8 fl (80-96); MEAN PLT VOLUME 7.9 fl (7.5-11.1); MONO % 6.6 % (3.8-10.2); NEUT % 73.9 % (42.8-82.8); PLATELET COUNT 451 10^3/uL (134-434); RBC 4.84 M/mm3 (3.60-5.2); RDW 14.4 % (11.6-15.6); WHITE BLOOD COUNT 9.8 K/mm3 (4.0-10.0)
== END 2022-05-10 09:54 | disposition home or self-care (01) ==
LOC: FINFUSION 07:51 → FM/S 07:51 → FINFUSION 09:54
PROVIDERS: ATTEND Internal Medicine Gastroenterology
PROC: 3E033GC Introduction of Other Therapeutic Substance into Peripheral Vein, Percutaneous Approach (ICD-10-PCS; principal; 2022-05-10)
DX: Z53.29 Procedure and treatment not carried out because of patient's decision for other reasons (principal); K51.90 Ulcerative colitis, unspecified, without complications
CPT/HCPCS: 36415; 80048; 80076; 82150; 85025; 85651; 86140; 96365

== ENCOUNTER 2022-05-14 11:46 | Day surgery (SDC) | payer OTHER, MEDICARE ==
[~2022-05-14 11:46] MED LIST changes: +HYDROCORTISONE SOD SUCCINATE 100 MG/2 ML VIAL IVPB ONE; +INFLIXIMAB ABDA IVPB ONE; +SODIUM CHLORIDE IVPB ONE
[2022-05-14] MEDS ORDERED: SODIUM CHLORIDE 250 ML IV ONE ×2 (12:00→16:30)
[2022-05-14] MEDS ORDERED: HYDROCORTISONE SOD SUCCINATE 100 MG/2 ML VIAL IVPB ONE (13:00)
[2022-05-14] MEDS ORDERED: SODIUM CHLORIDE IVPB ONE (13:30)
[2022-05-14] MEDS ORDERED: INFLIXIMAB ABDA IVPB ONE (13:30)
[2022-05-14 17:22] VITALS: BP 123/73; PULSE 80; RESP 16; TEMP 98.5
== END 2022-05-14 17:33 | disposition home or self-care (01) ==
LOC: FINFUSION 11:46 → FM/S 11:49 → FINFUSION 17:33
PROVIDERS: ATTEND Internal Medicine Gastroenterology
PROC: 3E033GC Introduction of Other Therapeutic Substance into Peripheral Vein, Percutaneous Approach (ICD-10-PCS; principal; 2022-05-14)
DX: K51.90 Ulcerative colitis, unspecified, without complications (principal)
CPT/HCPCS: 96365; 96366; 96367; Q5104

== ENCOUNTER 2022-08-13 12:32 | Day surgery (SDC) | payer OTHER, MEDICARE ==
[2022-08-13] MEDS ORDERED: DIPHENHYDRAMINE 50 MG in SODIUM CHLORIDE 50 ML IVPB ONE (14:00)
[2022-08-13] MEDS ORDERED: SODIUM CHLORIDE 250 ML IV ONE ×2 (14:00→18:00)
[2022-08-13] MEDS ORDERED: HYDROCORTISONE SOD SUCCINATE 100 MG/2 ML VIAL IVPB ONE (14:00)
[2022-08-13] MEDS ORDERED: SODIUM CHLORIDE IVPB ONE (14:30)
[2022-08-13] MEDS ORDERED: INFLIXIMAB ABDA IVPB ONE (14:30)
[2022-08-14 07:46] VITALS: BP 120/75; PULSE 80; RESP 17; TEMP 98.6
== END 2022-08-13 20:50 | disposition home or self-care (01) ==
LOC: FINFUSION 12:32 → FM/S 12:33 → FINFUSION 20:50
PROVIDERS: ATTEND Internal Medicine Gastroenterology
PROC: 3E033GC Introduction of Other Therapeutic Substance into Peripheral Vein, Percutaneous Approach (ICD-10-PCS; principal; 2022-08-13)
DX: K51.90 Ulcerative colitis, unspecified, without complications (principal)
CPT/HCPCS: 96365; 96366; 96367; 96413; 96415; Q5104

== ENCOUNTER 2022-08-22 00:02 | Emergency (ER) | payer OTHER, MEDICARE ==
[2022-08-22 00:10] VITALS: BP 110/67; PULSE 80; RESP 17; TEMP 97.7; BMI 20.6
[2022-08-22 02:28] LABS: BASO % 0.1 % (0-2.0); EOS % 1.2 % (0-4.5); HEMATOCRIT 42.2 % (32.4-45.2); HEMOGLOBIN 13.7 GM/dL (10.7-15.3); LYMPH % 40.6 % (8-40); MCH 28.5 pg (25.7-33.7); MCHC 32.4 g/dl (32.0-36.0); MEAN CELL VOLUME 87.9 fl (80-96); MEAN PLT VOLUME 7.3 fl (7.5-11.1); MONO % 8.5 % (3.8-10.2); NEUT % 49.6 % (42.8-82.8); PLATELET COUNT 450 10^3/uL (134-434); RDW 14.9 % (11.6-15.6); WHITE BLOOD COUNT 11.6 K/mm3 (4.0-10.0)
[2022-08-22 02:34] LABS: INR 0.94 (0.83-1.09); PROTHROMBIN TIME (PATIENT) 10.8 SEC (9.7-13.0)
[2022-08-22] MEDS ORDERED: ACETAMINOPHEN 1000 MG/100 ML BAG IVPB ONE (02:35)
[2022-08-22 02:36] LABS: ACTIVATED PTT 31.7 SECONDS (25.2-36.5)
[2022-08-22] MEDS ORDERED: ACETAMINOPHEN INJECTION 100 ML IVPB ONE (02:39)
[2022-08-22 02:48] LABS: CALCIUM 9.3 mg/dL (8.5-10.1)
[2022-08-22 02:49] LABS: ALBUMIN 3.7 g/dl (3.4-5.0); BLOOD UREA NITROGEN 25.5 mg/dL (7-18)
[2022-08-22 02:52] LABS: CREATININE 0.6 mg/dL (0.55-1.3)
[2022-08-22 02:53] LABS: TOT PROT 7.2 g/dl (6.4-8.2)
[2022-08-22 02:54] LABS: BILIRUBIN,TOTAL 0.2 mg/dL (0.2-1)
[2022-08-22 03:48] LABS: EPI CELLS 9 /uL (0-25.1); HYALINE CASTS 3 /uL (0-3.1); URINE APPEARANCE CLOUDY; URINE BACTERIA 26 /uL (0-1359); URINE BILIRUBIN NEGATIVE (NEGATIVE); URINE COLOR YELLOW; URINE GLUCOSE (UA) NEGATIVE (NEGATIVE); URINE KETONE NEGATIVE (NEGATIVE); URINE LEUK ESTERASE 1+ (NEGATIVE); URINE NITRITE NEGATIVE (NEGATIVE); URINE PROTEIN NEGATIVE (NEGATIVE); URINE RBC 7 /uL (0-23.9); URINE UROBILINOGEN 0.2 mg/dL (0.2-1.0); URINE WBC 92 /uL (0-25.8)
== END 2022-08-22 05:29 | disposition home or self-care (01) ==
LOC: JER 00:02
PROC: 3E033GC Introduction of Other Therapeutic Substance into Peripheral Vein, Percutaneous Approach (ICD-10-PCS; principal; 2022-08-22)
DX: M54.50 Low back pain, unspecified (principal)
CPT/HCPCS: 36415; 72131-TC; 74176-TC; 80053; 81003; 83690; 84484; 85025; 85610; 85730; 87086; 93005; 93010; 99285-25

== ENCOUNTER 2022-09-28 20:59 | Emergency (ER) | payer OTHER, MEDICARE ==
[2022-09-28 21:04] VITALS: BP 124/66; PULSE 74; RESP 18; TEMP 98.2; BMI 19.5
[2022-09-28] MEDS ORDERED: ACETAMINOPHEN 1000 MG/100 ML BAG IVPB ONE (21:50)
[2022-09-28] MEDS ORDERED: ACETAMINOPHEN INJECTION 100 ML IVPB ONE (21:54)
[2022-09-28] MEDS ORDERED: LIDOCAINE 5% TOPICAL PATCH TP ONE ×2 (21:57→21:58)
[2022-09-28] MEDS ORDERED: LIDOCAINE PATCH REMOVAL MC SCH ×2 (22:00)
[2022-09-29] MEDS ORDERED: LIDOCAINE PATCH REMOVAL MC ONE ×2 (22:00)
== END 2022-09-28 23:44 | disposition home or self-care (01) ==
LOC: JERFT 20:59 → JER 20:59
PROC: 3E0333Z Introduction of Anti-inflammatory into Peripheral Vein, Percutaneous Approach (ICD-10-PCS; principal; 2022-09-28)
DX: S09.90XA Unspecified injury of head, initial encounter (principal); M54.2 Cervicalgia; M54.50 Low back pain, unspecified; W20.8XXA Other cause of strike by thrown, projected or falling object, initial encounter
CPT/HCPCS: 70450-TC; 72125-TC; 99284-25

== ENCOUNTER 2022-10-13 11:04 | Day surgery (SDC) | payer OTHER, MEDICARE ==
[2022-10-13] MEDS ORDERED: HYDROCORTISONE SOD SUCCINATE 100 MG/2 ML VIAL IVPB ONE (12:15)
[2022-10-13] MEDS ORDERED: INFLIXIMAB ABDA IVPB ONE (13:00)
[2022-10-13] MEDS ORDERED: SODIUM CHLORIDE IVPB ONE (13:00)
[2022-10-13] MEDS ORDERED: SODIUM CHLORIDE 250 ML IV ONE (15:00)
[2022-10-13 17:28] VITALS: BP 126/69; PULSE 79; RESP 16; TEMP 98.8
== END 2022-10-13 17:33 | disposition home or self-care (01) ==
LOC: FINFUSION 11:04 → FM/S 11:05 → FINFUSION 17:33
PROVIDERS: ATTEND Internal Medicine Gastroenterology
PROC: 3E03305 Introduction of Other Antineoplastic into Peripheral Vein, Percutaneous Approach (ICD-10-PCS; principal; 2022-10-13)
PROC: 3E033GC Introduction of Other Therapeutic Substance into Peripheral Vein, Percutaneous Approach (ICD-10-PCS; 2022-10-13)
DX: K51.90 Ulcerative colitis, unspecified, without complications (principal)
CPT/HCPCS: 96367; 96413; 96415; Q5104

== ENCOUNTER 2022-10-15 04:28 | Day surgery (SDC) | payer OTHER, MEDICARE ==
[2022-10-11 11:25] VITALS: BMI 19.9
[~2022-10-15 04:28] MED LIST changes: +BUPIVACAINE HCL/PF 0.25% (2.5MG/ML) 10 ML VIAL IJ ONE; -HYDROCORTISONE SOD SUCCINATE 100 MG/2 ML VIAL IVPB ONE; -INFLIXIMAB ABDA IVPB ONE; +IOHEXOL 180 MG/1 ML ML IJ ONE; +LIDOCAINE HCL 1% PRESERVATIVE FREE - 30ML VIAL NR ONE; -SODIUM CHLORIDE 250 ML IV ONE; -SODIUM CHLORIDE IVPB ONE
[2022-10-15] MEDS ORDERED: BUPIVACAINE HCL/PF 0.25% (2.5MG/ML) 10 ML VIAL ONE ×2 (08:41→10:46)
[2022-10-15] MEDS ORDERED: BUPIVACAINE HCL/PF 0.5% (5MG/ML) 10 ML VIAL ONE (08:42)
[2022-10-15] MEDS ORDERED: BETAMET ACET/BETAMET NA PH 30 MG/5 ML VIAL ONE (08:42)
[2022-10-15] MEDS ORDERED: LIDOCAINE HCL/PF 1% SDV 5ML VIAL ONE (08:42)
[2022-10-15] MEDS ORDERED: MIDAZOLAM HCL 2 MG/2 ML SINGLE DOSE VIAL ONE (08:59)
[2022-10-15] MEDS ORDERED: KETAMINE HCL 500 MG/10 ML VIAL ONE (08:59)
[2022-10-15] MEDS ORDERED: DEXAMETHASONE SOD PHOSPHATE 10 MG/1 ML VIAL ONE (09:32)
[2022-10-15] MEDS ORDERED: BUPIVACAINE HCL/PF 0.25% (2.5MG/ML) 10 ML VIAL IJ ONE (09:38)
[2022-10-15] MEDS ORDERED: IOHEXOL 180 MG/1 ML ML IJ ONE (09:38)
[2022-10-15] MEDS ORDERED: DEXAMETHASONE SOD PHOSPHATE 10 MG/1 ML VIAL IM ONE (09:38)
[2022-10-15] MEDS ORDERED: LIDOCAINE HCL 1% PRESERVATIVE FREE - 30ML VIAL NR ONE (09:38)
[2022-10-15 10:10] VITALS: RESP 18
[2022-10-15 12:55] VITALS: BP 114/76; PULSE 84; TEMP 97.8
== END 2022-10-15 12:30 | disposition home or self-care (01) ==
LOC: JASU-SURG 04:28
PROVIDERS: ATTEND Physical Medicine & Rehabilitation
PROC: 3E0R3BZ Introduction of Anesthetic Agent into Spinal Canal, Percutaneous Approach (ICD-10-PCS; 2022-10-15)
PROC: 3E0R33Z Introduction of Anti-inflammatory into Spinal Canal, Percutaneous Approach (ICD-10-PCS; principal; 2022-10-15 09:00)
DX: M54.16 Radiculopathy, lumbar region (principal); M54.50 Low back pain, unspecified
CPT/HCPCS: 76000-TC-FY; J1100

== ENCOUNTER 2022-12-15 12:22 | Day surgery (SDC) | payer OTHER, MEDICARE ==
[2022-12-15] MEDS ORDERED: INFLIXIMAB ABDA IVPB SCH (13:00)
[2022-12-15] MEDS ORDERED: SODIUM CHLORIDE IVPB SCH (13:00)
[2022-12-15] MEDS ORDERED: HYDROCORTISONE SOD SUCCINATE 100 MG/2 ML VIAL IVPB SCH ×2 (14:15)
[2022-12-15] MEDS ORDERED: SODIUM CHLORIDE 250 ML IV SCH (14:30)
[2022-12-15 18:56] VITALS: BP 125/72; PULSE 80; RESP 16; TEMP 98.6
== END 2022-12-15 19:30 | disposition home or self-care (01) ==
LOC: FINFUSION 12:22 → FM/S 12:23 → FINFUSION 19:30
PROVIDERS: ATTEND Internal Medicine Gastroenterology
DX: K51.90 Ulcerative colitis, unspecified, without complications (principal)
CPT/HCPCS: 96367; 96413; 96415; Q5104

== ENCOUNTER 2023-01-21 10:52 | Observation (INO) | payer OTHER, MEDICARE ==
[2023-01-21] MEDS ORDERED: ACETAMINOPHEN 1000 MG/100 ML BAG IVPB ONE (13:31)
[2023-01-21 14:25] LABS: BASO % 0.7 % (0-2.0); EOS % 1.4 % (0-4.5); HEMATOCRIT 43.2 % (32.4-45.2); HEMOGLOBIN 14.2 GM/dL (10.7-15.3); LYMPH % 40.6 % (8-40); MCH 28.8 pg (25.7-33.7); MEAN CELL VOLUME 87.3 fl (80-96); MEAN PLT VOLUME 7.5 fl (7.5-11.1); MONO % 10.3 % (3.8-10.2); PLATELET COUNT 411 10^3/uL (134-434); RBC 4.94 M/mm3 (3.60-5.2); RDW 14.7 % (11.6-15.6); WHITE BLOOD COUNT 8.3 K/mm3 (4.0-10.0)
[2023-01-21] MEDS ORDERED: ACETAMINOPHEN 500 MG TABLET (FP) PO ONE (14:27)
[2023-01-21] MEDS ORDERED: ACETAMINOPHEN 325 MG TABLET (FP) ONE (14:31)
[2023-01-21 14:32] LABS: INR 0.93 (0.83-1.09); PROTHROMBIN TIME (PATIENT) 10.8 SEC (9.7-13.0)
[2023-01-21 14:34] LABS: ACTIVATED PTT 30.7 SECONDS (25.2-36.5)
[2023-01-21 14:46] LABS: ALBUMIN 3.8 g/dl (3.4-5.0); BLOOD UREA NITROGEN 16.5 mg/dL (7-18); CALCIUM 9.3 mg/dL (8.5-10.1)
[2023-01-21 14:49] LABS: CREATININE 0.7 mg/dL (0.55-1.3)
[2023-01-21 14:51] LABS: BILIRUBIN,TOTAL 0.4 mg/dL (0.2-1); TOT PROT 7.5 g/dl (6.4-8.2)
[2023-01-21] MEDS ORDERED: KETOROLAC TROMETHAMINE 15 MG/ML VIAL IM ONE (18:44)
[2023-01-21] MEDS ORDERED: ONDANSETRON *ODT* 4 MG TABLET SL ONE (18:44)
[2023-01-21] MEDS ORDERED: ONDANSETRON *ODT* 4 MG TABLET ONE (18:54)
[2023-01-21] MEDS ORDERED: KETOROLAC TROMETHAMINE 15 MG/ML VIAL ONE ×3 (18:54→21:35)
[2023-01-21] MEDS ORDERED: KETOROLAC TROMETHAMINE 15 MG/ML VIAL IVPUSH ONE (19:48)
[2023-01-21] MEDS ORDERED: HALOPERIDOL LACTATE 5 MG/ML IM ONE ×3 (22:54→23:35)
[2023-01-22 03:42] VITALS: BMI 19.9
[2023-01-22 06:34] LABS: BASO % 0.5 % (0-2.0); EOS % 0.9 % (0-4.5); HEMATOCRIT 39.8 % (32.4-45.2); HEMOGLOBIN 13.2 GM/dL (10.7-15.3); MEAN CELL VOLUME 87.7 fl (80-96); MEAN PLT VOLUME 7.9 fl (7.5-11.1); MONO % 8.3 % (3.8-10.2); NEUT % 57.3 % (42.8-82.8); PLATELET COUNT 366 10^3/uL (134-434); RBC 4.54 M/mm3 (3.60-5.2); RDW 14.5 % (11.6-15.6); WHITE BLOOD COUNT 9.5 K/mm3 (4.0-10.0)
[2023-01-22 06:59] LABS: POTASSIUM 4.6 mmol/L (3.5-5.1)
[2023-01-22 07:01] LABS: CALCIUM 9.2 mg/dL (8.5-10.1)
[2023-01-22 07:02] LABS: ALBUMIN 3.5 g/dl (3.4-5.0); BLOOD UREA NITROGEN 17.5 mg/dL (7-18); MAGNESIUM 2.4 mg/dL (1.8-2.4)
[2023-01-22 07:05] LABS: CREATININE 0.6 mg/dL (0.55-1.3)
[2023-01-22 07:06] LABS: BILIRUBIN,TOTAL 0.3 mg/dL (0.2-1); TOT PROT 6.7 g/dl (6.4-8.2)
[2023-01-22 07:38] VITALS: RESP 16
[2023-01-22 10:48] VITALS: BP 145/61; PULSE 55; TEMP 98.2
== END 2023-01-22 11:00 | disposition left against medical advice (07) ==
LOC: JER 10:52 → JERBED 18:50 → J2W 01-22 02:36
PROVIDERS: ADMIT Internal Medicine; ATTEND Family Medicine
PROC: 3E023GC Introduction of Other Therapeutic Substance into Muscle, Percutaneous Approach (ICD-10-PCS; principal; 2023-01-21)
PROC: 3E0333Z Introduction of Anti-inflammatory into Peripheral Vein, Percutaneous Approach (ICD-10-PCS; 2023-01-21)
DX: F41.9 Anxiety disorder, unspecified (principal); R45.851 Suicidal ideations; K51.90 Ulcerative colitis, unspecified, without complications; S09.90XA Unspecified injury of head, initial encounter; W01.0XXA Fall on same level from slipping, tripping and stumbling without subsequent striking against object, initial encounter; Y93.11 Activity, swimming; Y92.89 Other specified places as the place of occurrence of the external cause; K21.9 Gastro-esophageal reflux disease without esophagitis; Z88.5 Allergy status to narcotic agent; R55 Syncope and collapse; R07.9 Chest pain, unspecified; F17.210 Nicotine dependence, cigarettes, uncomplicated
CPT/HCPCS: 0241U-QW; 36415; 70450-TC; 71046-TC-FY; 72125-TC; 72131-TC; 72170-TC-FY; 80053; 83735; 84443; 84484; 85025; 85610; 85730; 93005; 93010; 96372; 96374; 99285-25; G0378; Q0162

== ENCOUNTER 2023-01-23 11:04 | Emergency (ER) | payer OTHER, MEDICARE ==
[2023-01-23 11:11] VITALS: BP 137/59; PULSE 69; RESP 18; TEMP 98.4; BMI 20.2
== END 2023-01-23 13:36 | disposition home or self-care (01) ==
LOC: JERFT 11:04 → JER 11:04
DX: R11.0 Nausea (principal); F41.9 Anxiety disorder, unspecified; M54.2 Cervicalgia
CPT/HCPCS: 99282-25

== ENCOUNTER 2023-02-12 05:27 | Day surgery (SDC) | payer OTHER, MEDICARE ==
[2023-02-11 16:54] VITALS: BMI 20.5
[~2023-02-12 05:27] MED LIST changes: -BUPIVACAINE HCL/PF 0.25% (2.5MG/ML) 10 ML VIAL IJ ONE; +BUPIVACAINE HCL/PF 0.5% (5MG/ML) 10 ML VIAL IJ ONE; +LIDOCAINE HCL 1% PRESERVATIVE FREE - 30ML VIAL IJ ONE; -LIDOCAINE HCL 1% PRESERVATIVE FREE - 30ML VIAL NR ONE; +TRIAMCINOLONE ACET 40MG/1ML VIAL IM ONE
[2023-02-12] MEDS ORDERED: TRIAMCINOLONE ACET 40MG/1ML VIAL ONE (13:03)
[2023-02-12] MEDS ORDERED: LIDOCAINE HCL/PF 1% SDV 5ML VIAL ONE (13:03)
[2023-02-12] MEDS ORDERED: MIDAZOLAM HCL 2 MG/2 ML SINGLE DOSE VIAL ONE (16:11)
[2023-02-12] MEDS ORDERED: LIDOCAINE HCL 1% PRESERVATIVE FREE - 30ML VIAL IJ ONE (16:22)
[2023-02-12] MEDS ORDERED: IOHEXOL 180 MG/1 ML ML IJ ONE (16:22)
[2023-02-12] MEDS ORDERED: BUPIVACAINE HCL/PF 0.5% (5MG/ML) 10 ML VIAL IJ ONE (16:22)
[2023-02-12] MEDS ORDERED: TRIAMCINOLONE ACET 40MG/1ML VIAL IM ONE (16:23)
[2023-02-12] MEDS ORDERED: ACETAMINOPHEN 500 MG TABLET (FP) PO PRN (19:20)
[2023-02-12 19:40] VITALS: BP 123/68; PULSE 108; RESP 18; TEMP 98
== END 2023-02-12 19:17 | disposition home or self-care (01) ==
LOC: JASU-SURG 05:27
PROVIDERS: ATTEND Pain Medicine Pain Medicine
PROC: 3E023BZ Introduction of Anesthetic Agent into Muscle, Percutaneous Approach (ICD-10-PCS; 2023-02-12)
PROC: 3E0233Z Introduction of Anti-inflammatory into Muscle, Percutaneous Approach (ICD-10-PCS; principal; 2023-02-12 16:15)
DX: M53.3 Sacrococcygeal disorders, not elsewhere classified (principal)
CPT/HCPCS: 76000-TC-FY

== ENCOUNTER 2023-03-05 20:34 | Emergency (ER) | payer OTHER, MEDICARE ==
[2023-03-05 20:46] VITALS: BP 117/62; PULSE 72; RESP 18; TEMP 97.6
[2023-03-05 20:48] VITALS: BMI 19.1
[2023-03-05] MEDS ORDERED: ACETAMINOPHEN 1000 MG/100 ML BAG IVPB ONE (21:20)
[2023-03-05] MEDS ORDERED: LIDOCAINE 5% TOPICAL PATCH TP ONE (21:20)
[2023-03-05] MEDS ORDERED: ACETAMINOPHEN INJECTION 100 ML IVPB ONE (21:34)
[2023-03-05] MEDS ORDERED: LIDOCAINE 5% TOPICAL PATCH ONE (21:34)
[2023-03-05] MEDS ORDERED: LIDOCAINE PATCH REMOVAL MC SCH (22:00)
[2023-03-05 22:01] LABS: BASO % 1.7 % (0-2.0); EOS % 1.5 % (0-4.5); HEMATOCRIT 40.5 % (32.4-45.2); HEMOGLOBIN 13.5 GM/dL (10.7-15.3); LYMPH % 27.4 % (8-40); MCH 29.6 pg (25.7-33.7); MCHC 33.4 g/dl (32.0-36.0); MEAN CELL VOLUME 88.5 fl (80-96); MEAN PLT VOLUME 7.4 fl (7.5-11.1); MONO % 8.6 % (3.8-10.2); NEUT % 60.8 % (42.8-82.8); PLATELET COUNT 381 10^3/uL (134-434); RBC 4.57 M/mm3 (3.60-5.2); RDW 14.1 % (11.6-15.6); WHITE BLOOD COUNT 10.2 K/mm3 (4.0-10.0)
[2023-03-05 22:19] LABS: POTASSIUM 4.2 mmol/L (3.5-5.1)
[2023-03-05 22:21] LABS: ALBUMIN 3.5 g/dl (3.4-5.0); BLOOD UREA NITROGEN 19.4 mg/dL (7-18); MAGNESIUM 2.1 mg/dL (1.8-2.4)
[2023-03-05 22:24] LABS: CREATININE 0.8 mg/dL (0.55-1.3)
[2023-03-05 22:26] LABS: BILIRUBIN,TOTAL 0.1 mg/dL (0.2-1); TOT PROT 7.1 g/dl (6.4-8.2)
== END 2023-03-05 22:50 | disposition home or self-care (01) ==
LOC: JER 20:34
PROC: 3E033NZ Introduction of Analgesics, Hypnotics, Sedatives into Peripheral Vein, Percutaneous Approach (ICD-10-PCS; principal; 2023-03-05)
DX: R07.9 Chest pain, unspecified (principal)
CPT/HCPCS: 36415; 71046-TC-FY; 80053; 83735; 84484; 85025; 93005; 93010; 99284-25

== ENCOUNTER 2023-03-30 14:43 | Day surgery (SDC) | payer OTHER, MEDICARE ==
[2023-03-30] MEDS ORDERED: SODIUM CHLORIDE IVPB SCH (15:00)
[2023-03-30] MEDS ORDERED: INFLIXIMAB ABDA IVPB SCH (15:00)
[2023-03-30] MEDS ORDERED: DIPHENHYDRAMINE 50 MG in SODIUM CHLORIDE 50 ML IVPB SCH (15:30)
[2023-03-30] MEDS ORDERED: HYDROCORTISONE SOD SUCCINATE 100 MG/2 ML VIAL IVPB SCH (15:30)
[2023-03-30 16:29] LABS: INR 0.94 (0.83-1.09); PROTHROMBIN TIME (PATIENT) 10.9 SEC (9.7-13.0)
[2023-03-30 16:32] LABS: ACTIVATED PTT 29.6 SECONDS (25.2-36.5)
[2023-03-30 16:39] LABS: ALBUMIN 4.4 g/dl (3.4-5.0); ALK PHOS 58 U/L (45-117); BILIRUBIN,DIRECT 0.1 mg/dL (0.0-0.2); SGOT/AST 13.5 U/L (15-37); SGPT/ALT 10.4 U/L (7-52); TOT PROT 6.9 g/dl (6.4-8.2)
[2023-03-30 16:59] LABS: HEMATOCRIT 41.5 % (32.4-45.2); HEMOGLOBIN 14.1 G/dL (10.7-15.3); MCH 30.2 pg (25.7-33.7); MCHC 33.9 g/dl (32.0-36.0); MEAN CELL VOLUME 89.1 fl (80-96); PLATELET COUNT 440.9 10^3/uL (134-434); RBC 4.66 10^6/uL (3.60-5.2); RDW 14.9 % (11.6-15.6); WHITE BLOOD COUNT 11.8 10^3/uL (4.0-10.8)
[2023-03-30 17:25] LABS: BILIRUBIN,TOTAL 0.3 mg/dL (0.2-1)
[2023-03-30 17:38] VITALS: RESP 18
[2023-03-30 17:39] LABS: PLATELET ESTIMATE ADEQUATE
[2023-03-30 19:47] VITALS: BP 133/58; PULSE 72; TEMP 98.2
== END 2023-03-30 21:25 | disposition home or self-care (01) ==
LOC: FINFUSION 14:43 → FM/S 14:44 → FINFUSION 21:25
PROVIDERS: ATTEND Internal Medicine Gastroenterology
DX: K51.90 Ulcerative colitis, unspecified, without complications (principal)
CPT/HCPCS: 36415; 80076; 82247; 85027; 85610; 85651; 85730; 86140; 96367; 96413; 96415; Q5104

== ENCOUNTER 2023-06-15 11:50 | Day surgery (SDC) | payer OTHER, MEDICARE ==
[~2023-06-15 11:50] MED LIST changes: -BUPIVACAINE HCL/PF 0.5% (5MG/ML) 10 ML VIAL IJ ONE; +DIPHENHYDRAMINE 50 MG in SODIUM CHLORIDE 50 ML IVPB SCH; +HYDROCORTISONE SOD SUCCINATE 100 MG/2 ML VIAL IVPB SCH; +INFLIXIMAB ABDA IVPB ONE; -IOHEXOL 180 MG/1 ML ML IJ ONE; -LIDOCAINE HCL 1% PRESERVATIVE FREE - 30ML VIAL IJ ONE; +SODIUM CHLORIDE IVPB ONE; -TRIAMCINOLONE ACET 40MG/1ML VIAL IM ONE
[2023-06-15] MEDS ORDERED: SODIUM CHLORIDE 250 ML IV SCH ×2 (13:30→17:13)
[2023-06-15 16:13] VITALS: RESP 16
[2023-06-15 18:10] VITALS: BP 150/80; PULSE 88; TEMP 98.3
== END 2023-06-15 19:08 | disposition home or self-care (01) ==
LOC: FINFUSION 11:50 → FM/S 12:08 → FINFUSION 19:08
PROVIDERS: ATTEND Internal Medicine Gastroenterology
DX: K51.90 Ulcerative colitis, unspecified, without complications (principal)
CPT/HCPCS: 96365; 96366; Q5104

== ENCOUNTER 2023-08-31 11:25 | Day surgery (SDC) | payer OTHER, MEDICARE ==
[2023-08-31] MEDS ORDERED: INFLIXIMAB ABDA IVPB SCH ×2 (12:00→14:59)
[2023-08-31] MEDS ORDERED: SODIUM CHLORIDE IVPB SCH ×2 (12:00→14:59)
[2023-08-31 13:10] LABS: CALCIUM 9.3 mg/dl (8.5-10.1); CREATININE 0.6 mg/dl (0.6-1.3)
[2023-08-31 13:12] LABS: ALBUMIN 4.4 g/dl (3.4-5.0); BILIRUBIN,DIRECT 0.1 mg/dL (0.0-0.2); BILIRUBIN,TOTAL 0.4 mg/dl (0.2-1); TOT PROT 6.6 g/dl (6.4-8.2)
[2023-08-31] MEDS ORDERED: DIPHENHYDRAMINE 50 MG in SODIUM CHLORIDE 50 ML IVPB SCH (13:15)
[2023-08-31] MEDS ORDERED: HYDROCORTISONE SOD SUCCINATE 100 MG/2 ML VIAL IVPB SCH (13:15)
[2023-08-31 13:27] LABS: ERYTHROCYTE SEDIMENTATION RATE 14 mm/hr (0-30)
[2023-08-31 15:04] LABS: BASO % 0.8 % (0-2.0); EOS % 1.6 % (0-4.5); HEMATOCRIT 39.8 % (32.4-45.2); HEMOGLOBIN 12.9 GM/dL (10.7-15.3); LYMPH % 30.7 % (8-40); MCH 28.6 pg (25.7-33.7); MCHC 32.4 g/dl (32.0-36.0); MEAN CELL VOLUME 88.4 fl (80-96); MEAN PLT VOLUME 8.3 fl (7.5-11.1); MONO % 9.6 % (3.8-10.2); NEUT % 57.3 % (42.8-82.8); PLATELET COUNT 396 10^3/uL (134-434); RDW 14.3 % (11.6-15.6); WHITE BLOOD COUNT 7.5 K/mm3 (4.0-10.0)
[2023-08-31 18:42] VITALS: BP 105/65; PULSE 68; RESP 18; TEMP 98.3
== END 2023-08-31 19:30 | disposition home or self-care (01) ==
LOC: FINFUSION 11:25 → FM/S 11:25 → FINFUSION 19:30
PROVIDERS: ATTEND Internal Medicine Gastroenterology
PROC: 3E033GC Introduction of Other Therapeutic Substance into Peripheral Vein, Percutaneous Approach (ICD-10-PCS; principal; 2023-08-31)
DX: K51.90 Ulcerative colitis, unspecified, without complications (principal)
CPT/HCPCS: 36415; 80048; 80076; 82150; 85025; 85651; 86140; 96365; 96366; 96367; 96375; 96413; 96415; Q5104

== ENCOUNTER 2023-11-09 11:38 | Day surgery (SDC) | payer OTHER, MEDICARE ==
[2023-11-09] MEDS ORDERED: INFLIXIMAB IVPB SCH (12:30)
[2023-11-09] MEDS ORDERED: SODIUM CHLORIDE IVPB SCH (12:30)
[2023-11-09] MEDS: SODIUM CHLORIDE 250 ML IV SCH (12:42)
[2023-11-09] MEDS: HYDROCORTISONE SOD SUCCINATE 100 MG/2 ML VIAL IVPB SCH (14:10)
[2023-11-09] MEDS: DIPHENHYDRAMINE 50 MG in SODIUM CHLORIDE 50 ML IVPB SCH (15:06)
[2023-11-09] MEDS: INFLIXIMAB ABDA IVPB SCH (15:37)
[2023-11-09] MEDS: SODIUM CHLORIDE IVPB SCH (15:37)
[2023-11-09 16:05] LABS: AMYLASE 60 U/L (29-103); ANION GAP 8 mmol/L (4-13); CALCIUM 10.1 mg/dl (8.5-10.1); CHLORIDE 103 mmol/L (98-107); CO2 28 mmol/L (21-32); CREATININE 0.7 mg/dl (0.6-1.3); GLUCOSE,RANDOM 113 mg/dl (74-106); POTASSIUM 4.1 mmol/L (3.5-5.1); SODIUM 139 mmol/L (136-145)
[2023-11-09] MEDS ORDERED: SODIUM CHLORIDE 250 ML IV SCH (16:15)
[2023-11-09 16:43] VITALS: TEMP 98
[2023-11-09 19:07] LABS: HEMATOCRIT 45.1 % (32.4-45.2); MCH 29.5 pg (25.7-33.7); MCHC 33.2 g/dl (32.0-36.0); PLATELET COUNT 385.4 10^3/uL (134-434); RBC 5.07 10^6/uL (3.60-5.2); RDW 15.2 % (11.6-15.6); WHITE BLOOD COUNT 7.8 10^3/uL (4.0-10.8)
[2023-11-09 19:10] LABS: PLATELET ESTIMATE ADEQUATE
[2023-11-09 19:18] LABS: ALBUMIN 4.7 g/dl (3.4-5.0); BILIRUBIN,DIRECT 0.1 mg/dL (0.0-0.2); BILIRUBIN,TOTAL 0.5 mg/dl (0.2-1); TOT PROT 7.7 g/dl (6.4-8.2)
[2023-11-09 20:08] VITALS: BP 133/58; PULSE 84; RESP 17
== END 2023-11-09 20:15 | disposition home or self-care (01) ==
LOC: FINFUSION 11:38 → FM/S 11:40 → FINFUSION 20:15
PROVIDERS: ATTEND Internal Medicine Gastroenterology
DX: K51.90 Ulcerative colitis, unspecified, without complications (principal)
CPT/HCPCS: 36415; 80048; 80076; 82150; 85027; 85651; 86140; 96367; 96413; 96415; Q5104

== ENCOUNTER 2024-01-18 12:17 | Day surgery (SDC) | payer OTHER, MEDICARE ==
[2024-01-18] MEDS ORDERED: INFLIXIMAB IVPB SCH (13:45)
[2024-01-18] MEDS ORDERED: SODIUM CHLORIDE IVPB SCH (13:45)
[2024-01-18 14:49] LABS: ALBUMIN 3.6 g/dl (3.4-5.0); ALK PHOS 49 U/L (45-117); AMYLASE 74 U/L (29-103); ANION GAP 6 mmol/L (4-13); BILIRUBIN,TOTAL 0.3 mg/dl (0.2-1); CALCIUM 7.9 mg/dl (8.5-10.1); CHLORIDE 110 mmol/L (98-107); CO2 26 mmol/L (21-32); CREATININE 0.5 mg/dl (0.6-1.3); GLUCOSE,RANDOM 91 mg/dl (74-106); POTASSIUM 3.4 mmol/L (3.5-5.1); SGOT/AST 10 U/L (15-37); SGPT/ALT 9 U/L (7-52); SODIUM 142 mmol/L (136-145); TOT PROT 5.5 g/dl (6.4-8.2)
[2024-01-18] MEDS: SODIUM CHLORIDE 250 ML IV SCH (15:30)
[2024-01-18] MEDS: HYDROCORTISONE SOD SUCCINATE 100 MG/2 ML VIAL IVPB SCH (16:30)
[2024-01-18] MEDS: ACETAMINOPHEN 500 MG TABLET (FP) PO ONE ×2 (16:57→16:58)
[2024-01-18] MEDS: DIPHENHYDRAMINE 50 MG in SODIUM CHLORIDE 50 ML IVPB SCH (17:48)
[2024-01-18 19:48] VITALS: RESP 16
[2024-01-18] MEDS: INFLIXIMAB ABDA IVPB ONE (20:27)
[2024-01-18] MEDS: SODIUM CHLORIDE IVPB ONE (20:27)
[2024-01-18] MEDS: SODIUM CHLORIDE 250 ML IV ONE (20:27)
[2024-01-18 22:52] VITALS: BP 124/64; PULSE 65
[2024-01-18 22:56] VITALS: TEMP 98.1
== END 2024-01-18 22:15 | disposition home or self-care (01) ==
LOC: FINFUSION 12:17 → FM/S 12:18 → FINFUSION 22:15
DX: K51.90 Ulcerative colitis, unspecified, without complications (principal)
CPT/HCPCS: 36415; 80053; 82150; 85651; 86140; 96413; 96415

== ENCOUNTER 2024-01-20 04:11 | Day surgery (SDC) | payer OTHER, MEDICARE ==
[2024-01-16 17:09] VITALS: BMI 20.2
[2024-01-20] MEDS ORDERED: LIDOCAINE HCL/PF 1% SDV 5ML VIAL ONE (08:02)
[2024-01-20] MEDS ORDERED: LIDOCAINE HCL/PF 2% SDV 5ML VIAL ONE (08:02)
[2024-01-20] MEDS ORDERED: BUPIVACAINE HCL/PF 0.5% (5MG/ML) 10 ML VIAL ONE (08:02)
[2024-01-20 10:17] VITALS: RESP 18
[2024-01-20] MEDS ORDERED: MIDAZOLAM HCL 2 MG/2 ML SINGLE DOSE VIAL ONE (12:33)
[2024-01-20] MEDS ORDERED: FENTANYL CITRATE/PF 50 MCG/ML VIAL ONE ×2 (12:34→12:40)
[2024-01-20] MEDS ORDERED: PROPOFOL 20 ML ONE (12:40)
[2024-01-20] MEDS ORDERED: DEXAMETHASONE SOD PHOSPHATE 10 MG/1 ML VIAL ONE (12:42)
[2024-01-20] MEDS: BUPIVACAINE HCL/PF 0.25% (2.5MG/ML) 10 ML VIAL IJ ONE (12:46)
[2024-01-20] MEDS: LIDOCAINE HCL 1% PRESERVATIVE FREE - 30ML VIAL IJ ONE (12:46)
[2024-01-20] MEDS: IOHEXOL 180 MG/1 ML ML IJ ONE (12:46)
[2024-01-20] MEDS: DEXAMETHASONE SOD PHOSPHATE 10 MG/1 ML VIAL IVPUSH ONE ×2 (12:47)
[2024-01-20 13:11] VITALS: TEMP 97.7
[2024-01-20 13:56] VITALS: BP 129/74; PULSE 65
== END 2024-01-20 15:00 | disposition home or self-care (01) ==
LOC: JASU-SURG 04:11
PROVIDERS: ATTEND Physical Medicine & Rehabilitation
PROC: 3E0R3BZ Introduction of Anesthetic Agent into Spinal Canal, Percutaneous Approach (ICD-10-PCS; 2024-01-20)
PROC: 3E0R33Z Introduction of Anti-inflammatory into Spinal Canal, Percutaneous Approach (ICD-10-PCS; principal; 2024-01-20 11:00)
DX: M54.16 Radiculopathy, lumbar region (principal); M54.50 Low back pain, unspecified
CPT/HCPCS: 76000-TC-FY; J1100

== ENCOUNTER 2024-02-01 18:32 | Emergency (ER) | payer OTHER, MEDICARE ==
[2024-02-01 18:58] VITALS: BP 115/80; PULSE 76; RESP 16; TEMP 98; BMI 16.1
[2024-02-01] MEDS: SODIUM CHLORIDE 0.9% 500 ML INFUS.BAG IV ONE (20:28)
[2024-02-01 20:33] LABS: BASO % 0.7 % (0-2.0); EOS % 1.6 % (0-4.5); HEMOGLOBIN 13.6 GM/dL (10.7-15.3); LYMPH % 31.4 % (8-40); MCH 29.6 pg (25.7-33.7); MEAN CELL VOLUME 87.1 fl (80-96); MONO % 7.3 % (3.8-10.2); PLATELET COUNT 397 10^3/uL (134-434); RDW 15.1 % (11.6-15.6); WHITE BLOOD COUNT 10.7 K/mm3 (4.0-10.0)
[2024-02-01 20:40] LABS: INR 0.84 (0.83-1.09); PROTHROMBIN TIME (PATIENT) 9.7 SEC (9.7-13.0)
[2024-02-01 20:43] LABS: ACTIVATED PTT 29.4 SECONDS (25.2-36.5)
[2024-02-01 20:56] LABS: POTASSIUM 4.5 mmol/L (3.5-5.1)
[2024-02-01 20:58] LABS: CALCIUM 8.7 mg/dL (8.5-10.1)
[2024-02-01 20:59] LABS: ALBUMIN 3.6 g/dl (3.4-5.0); BLOOD UREA NITROGEN 23.6 mg/dL (7-18)
[2024-02-01 21:02] LABS: CREATININE 0.6 mg/dL (0.55-1.3)
[2024-02-01 21:03] LABS: BILIRUBIN,TOTAL 0.2 mg/dL (0.2-1)
== END 2024-02-01 23:37 | disposition home or self-care (01) ==
LOC: JER 18:32
DX: R42 Dizziness and giddiness (principal); R63.0 Anorexia
CPT/HCPCS: 36415; 71045-TC-FY; 80053; 84443; 84484; 85025; 85610; 85730; 86850; 86900; 86901; 93005; 93010; 99285-25

== ENCOUNTER 2024-02-10 01:03 | Emergency (ER) | payer OTHER, MEDICARE ==
[2024-02-10 01:24] VITALS: RESP 18; BMI 20.5
[2024-02-10] MEDS: guaiFENesin/CODEINE 10 ML UNIT-DOSE CUPS PO ONE (03:10)
[2024-02-10] MEDS ORDERED: guaiFENesin 200 MG/10 ML 10 ML UNIT-DOSE CUPS ONE ×2 (03:12→06:12)
[2024-02-10] MEDS: guaiFENesin 200 MG/10 ML 10 ML UNIT-DOSE CUPS PO ONE ×2 (03:23→06:13)
[2024-02-10] MEDS ORDERED: ACETAMINOPHEN INJECTION 100 ML IVPB ONE (03:27)
[2024-02-10 03:33] LABS: BASO % 0.8 % (0-2.0); EOS % 0.1 % (0-4.5); HEMATOCRIT 41.9 % (32.4-45.2); HEMOGLOBIN 14.1 GM/dL (10.7-15.3); LYMPH % 18.5 % (8-40); MCH 29.3 pg (25.7-33.7); MCHC 33.7 g/dl (32.0-36.0); MEAN CELL VOLUME 86.7 fl (80-96); MEAN PLT VOLUME 7.3 fl (7.5-11.1); MONO % 11.2 % (3.8-10.2); NEUT % 69.4 % (42.8-82.8); PLATELET COUNT 318 10^3/uL (134-434); RBC 4.83 M/mm3 (3.60-5.2); RDW 14.9 % (11.6-15.6); WHITE BLOOD COUNT 8.8 K/mm3 (4.0-10.0)
[2024-02-10] MEDS: ACETAMINOPHEN 1000 MG/100 ML BAG IVPB ONE (03:34)
[2024-02-10] MEDS: LACTATED RINGERS SOLUTION 1000 ML INFUS.BAG IV ONE (03:35)
[2024-02-10 03:58] LABS: POTASSIUM 4.3 mmol/L (3.5-5.1)
[2024-02-10 03:59] LABS: BLOOD UREA NITROGEN 17.7 mg/dL (7-18); CALCIUM 8.8 mg/dL (8.5-10.1)
[2024-02-10 04:02] LABS: CREATININE 0.6 mg/dL (0.55-1.3)
[2024-02-10 04:05] LABS: BILIRUBIN,TOTAL 0.6 mg/dL (0.2-1); TOT PROT 7.8 g/dl (6.4-8.2)
[2024-02-10 05:11] VITALS: BP 121/65; PULSE 95; TEMP 99.2
== END 2024-02-10 06:40 | disposition home or self-care (01) ==
LOC: JER 01:03
PROC: 3E033NZ Introduction of Analgesics, Hypnotics, Sedatives into Peripheral Vein, Percutaneous Approach (ICD-10-PCS; principal; 2024-02-10)
DX: R07.89 Other chest pain (principal); B97.4 Respiratory syncytial virus as the cause of diseases classified elsewhere; R05.9 Cough, unspecified; R50.9 Fever, unspecified; Z20.822 Contact with and (suspected) exposure to COVID-19
CPT/HCPCS: 0241U-QW; 36415; 71046-TC-FY; 80053; 83735; 84484; 85025; 93005; 93010; 99285-25; J0131

== ENCOUNTER 2024-02-18 20:58 | Emergency (ER) | payer OTHER, MEDICARE ==
[2024-02-18 21:09] VITALS: BP 113/72; PULSE 81; RESP 18; TEMP 98.5; BMI 19.1
[2024-02-18] MEDS ORDERED: ACETAMINOPHEN INJECTION 100 ML IVPB ONE (23:06)
[2024-02-18] MEDS: SODIUM CHLORIDE 500 ML IV STA (23:29)
[2024-02-18] MEDS: ACETAMINOPHEN 1000 MG/100 ML BAG IVPB ONE (23:29)
[2024-02-18 23:39] LABS: BASO % 0.2 % (0-2.0); EOS % 1.5 % (0-4.5); HEMATOCRIT 35.8 % (32.4-45.2); LYMPH % 30.5 % (8-40); MCH 29.1 pg (25.7-33.7); MCHC 33.6 g/dl (32.0-36.0); MEAN CELL VOLUME 86.4 fl (80-96); MEAN PLT VOLUME 7.4 fl (7.5-11.1); MONO % 13.1 % (3.8-10.2); NEUT % 54.7 % (42.8-82.8); PLATELET COUNT 459 10^3/uL (134-434); RBC 4.14 M/mm3 (3.60-5.2); RDW 14.7 % (11.6-15.6); WHITE BLOOD COUNT 10.7 K/mm3 (4.0-10.0)
[2024-02-18 23:53] LABS: POTASSIUM 4.2 mmol/L (3.5-5.1)
[2024-02-18 23:55] LABS: ALBUMIN 3.2 g/dl (3.4-5.0); BLOOD UREA NITROGEN 23.2 mg/dL (7-18)
[2024-02-18 23:58] LABS: CREATININE 0.5 mg/dL (0.55-1.3)
[2024-02-19] LABS: BILIRUBIN,TOTAL 0.3 mg/dL (0.2-1); TOT PROT 6.9 g/dl (6.4-8.2)
== END 2024-02-19 01:54 | disposition home or self-care (01) ==
LOC: JER 20:58
PROC: 3E033NZ Introduction of Analgesics, Hypnotics, Sedatives into Peripheral Vein, Percutaneous Approach (ICD-10-PCS; principal; 2024-02-18)
PROC: 3E0337Z Introduction of Electrolytic and Water Balance Substance into Peripheral Vein, Percutaneous Approach (ICD-10-PCS; 2024-02-18)
DX: R05.9 Cough, unspecified (principal); R07.81 Pleurodynia; R06.02 Shortness of breath; B97.4 Respiratory syncytial virus as the cause of diseases classified elsewhere; Z20.822 Contact with and (suspected) exposure to COVID-19
CPT/HCPCS: 0241U-QW; 36415; 71045-TC-FY; 80053; 84484; 85025; 93005; 93010; 96361; 96374; 99285-25; J0131

== ENCOUNTER 2024-03-21 12:36 | Day surgery (SDC) | payer OTHER, MEDICARE ==
[2024-03-21 13:37] LABS: HEMATOCRIT 44.2 % (32.4-45.2); HEMOGLOBIN 14.2 G/dL (10.7-15.3); MCH 28.6 pg (25.7-33.7); MCHC 32.1 g/dl (32.0-36.0); MEAN CELL VOLUME 89.2 fl (80-96); MEAN PLT VOLUME 8.1 fl (7.5-11.1); PLATELET COUNT 320.9 10^3/uL (134-434); RBC 4.96 10^6/uL (3.60-5.2); RDW 15.1 % (11.6-15.6); WHITE BLOOD COUNT 8.1 10^3/uL (4.0-10.8)
[2024-03-21 13:41] LABS: PLATELET ESTIMATE ADEQUATE
[2024-03-21 13:43] LABS: ALBUMIN 4.5 g/dl (3.4-5.0); BILIRUBIN,TOTAL 0.4 mg/dl (0.2-1); CALCIUM 9.6 mg/dl (8.5-10.1); CREATININE 0.6 mg/dl (0.6-1.3)
[2024-03-21 13:50] LABS: ERYTHROCYTE SEDIMENTATION RATE 18 mm/hr (0-30)
[2024-03-21] MEDS ORDERED: INFLIXIMAB ABDA IVPB SCH (14:00)
[2024-03-21] MEDS ORDERED: SODIUM CHLORIDE IVPB SCH (14:00)
[2024-03-21 14:18] VITALS: RESP 18
[2024-03-21] MEDS: HYDROCORTISONE SOD SUCCINATE 100 MG/2 ML VIAL IVPB SCH (15:00)
[2024-03-21] MEDS: DIPHENHYDRAMINE 50 MG in SODIUM CHLORIDE 50 ML IVPB SCH (15:35)
[2024-03-21] MEDS: INFLIXIMAB ABDA IVPB SCH (16:00)
[2024-03-21] MEDS: SODIUM CHLORIDE IVPB SCH (16:00)
[2024-03-21 17:38] VITALS: TEMP 98.8
[2024-03-21 18:45] VITALS: BP 130/74; PULSE 79
[2024-03-21] MEDS ORDERED: SODIUM CHLORIDE 250 ML IV SCH (19:45)
== END 2024-03-21 19:12 | disposition home or self-care (01) ==
LOC: FINFUSION 12:36 → FM/S 12:37 → FINFUSION 19:12
PROVIDERS: ATTEND Internal Medicine Gastroenterology
PROC: 3E033GC Introduction of Other Therapeutic Substance into Peripheral Vein, Percutaneous Approach (ICD-10-PCS; principal; 2024-03-21)
DX: K51.90 Ulcerative colitis, unspecified, without complications (principal)
CPT/HCPCS: 36415; 80053; 82150; 85027; 85651; 86140; 96365; 96366; 96367; 96368; Q5104

== ENCOUNTER 2024-03-30 04:34 | Day surgery (SDC) | payer OTHER, MEDICARE ==
[2024-02-27 15:10] VITALS: BMI 21.2
[2024-03-30] MEDS ORDERED: LIDOCAINE HCL/PF 1% SDV 5ML VIAL ONE (07:22)
[2024-03-30] MEDS ORDERED: BUPIVACAINE HCL/PF 0.75% 10 ML VIAL ONE (07:22)
[2024-03-30] MEDS ORDERED: BUPIVACAINE HCL/PF 0.5% (5MG/ML) 10 ML VIAL ONE (07:54)
[2024-03-30 10:38] VITALS: RESP 20
[2024-03-30] MEDS ORDERED: MIDAZOLAM HCL 2 MG/2 ML SINGLE DOSE VIAL ONE (11:20)
[2024-03-30] MEDS ORDERED: PROPOFOL 20 ML ONE (11:23)
[2024-03-30] MEDS: IOHEXOL 180 MG/1 ML ML IJ ONE (11:29)
[2024-03-30] MEDS: BUPIVACAINE HCL/PF 0.5% (5MG/ML) 10 ML VIAL IJ ONE (11:30)
[2024-03-30] MEDS: LIDOCAINE 1% P/F 10 MG/ML VIAL PNB ONE (11:31)
[2024-03-30] MEDS: DEXAMETHASONE SOD PHOSPHATE 10 MG/1 ML VIAL IVPUSH ONE (11:31)
[2024-03-30 13:26] VITALS: BP 115/72; PULSE 82; TEMP 97.8
== END 2024-03-30 15:12 | disposition home or self-care (01) ==
LOC: JASU-SURG 04:34
PROVIDERS: ATTEND Physical Medicine & Rehabilitation
PROC: 3E0T33Z Introduction of Anti-inflammatory into Peripheral Nerves and Plexi, Percutaneous Approach (ICD-10-PCS; 2024-03-30)
PROC: 3E0T3BZ Introduction of Anesthetic Agent into Peripheral Nerves and Plexi, Percutaneous Approach (ICD-10-PCS; principal; 2024-03-30 12:00)
DX: M47.816 Spondylosis without myelopathy or radiculopathy, lumbar region (principal)
CPT/HCPCS: 76000-TC-FY; J1100

== ENCOUNTER 2024-04-18 10:44 | Day surgery (SDC) | payer OTHER, MEDICARE ==
[2024-04-18] MEDS: ZOLEDRONIC ACID/MAN/WATER 5 MG/100 ML INFUS..BTL IVPB ONE (11:02)
[2024-04-18 12:51] VITALS: BP 115/93; PULSE 72; RESP 18; TEMP 17
== END 2024-04-18 13:18 | disposition home or self-care (01) ==
LOC: FINFUSION 10:44 → FM/S 10:44 → FINFUSION 13:18
PROVIDERS: ATTEND Family Medicine
PROC: 3E033GC Introduction of Other Therapeutic Substance into Peripheral Vein, Percutaneous Approach (ICD-10-PCS; principal; 2024-04-18)
DX: M81.0 Age-related osteoporosis without current pathological fracture (principal)
CPT/HCPCS: 96365; J3489

== ENCOUNTER 2024-06-06 12:10 | Day surgery (SDC) | payer OTHER, MEDICARE ==
[2024-06-06 13:45] LABS: HEMATOCRIT 45.9 % (32.4-45.2); HEMOGLOBIN 15.2 G/dL (10.7-15.3); MCH 29.1 pg (25.7-33.7); MCHC 33.1 g/dl (32.0-36.0); MEAN PLT VOLUME 8.2 fl (7.5-11.1); PLATELET COUNT 395.8 10^3/uL (134-434); RBC 5.22 10^6/uL (3.60-5.2); RDW 14.8 % (11.6-15.6); WHITE BLOOD COUNT 8.4 10^3/uL (4.0-10.8)
[2024-06-06 13:46] LABS: PLATELET ESTIMATE ADEQUATE
[2024-06-06 13:50] LABS: ERYTHROCYTE SEDIMENTATION RATE 13 mm/hr (0-30)
[2024-06-06 13:53] LABS: ALBUMIN 4.9 g/dl (3.4-5.0); ALK PHOS 59 U/L (45-117); AMYLASE 66 U/L (29-103); ANION GAP 6 mmol/L (4-13); BILIRUBIN,DIRECT 0.1 mg/dL (0.0-0.2); BILIRUBIN,TOTAL 0.6 mg/dl (0.2-1); CALCIUM 9.8 mg/dl (8.5-10.1); CHLORIDE 100 mmol/L (98-107); CO2 30 mmol/L (21-32); CREATININE 0.6 mg/dl (0.6-1.3); GLUCOSE,RANDOM 103 mg/dl (74-106); POTASSIUM 3.9 mmol/L (3.5-5.1); SGOT/AST 18 U/L (15-37); SGPT/ALT 13 U/L (7-52); SODIUM 136 mmol/L (136-145); TOT PROT 7.9 g/dl (6.4-8.2)
[2024-06-06] MEDS: SODIUM CHLORIDE 250 ML IV SCH (14:29)
[2024-06-06] MEDS: HYDROCORTISONE SOD SUCCINATE 100 MG/2 ML VIAL IVPB SCH (15:05)
[2024-06-06] MEDS ORDERED: ACETAMINOPHEN 500 MG TABLET (FP) PO PRN (15:35)
[2024-06-06] MEDS: DIPHENHYDRAMINE 50 MG in SODIUM CHLORIDE 50 ML IVPB SCH (15:39)
[2024-06-06] MEDS: INFLIXIMAB IVPB SCH (16:25)
[2024-06-06] MEDS: SODIUM CHLORIDE IVPB SCH (16:25)
[2024-06-06 17:02] VITALS: RESP 16; TEMP 97.9
[2024-06-06] MEDS ORDERED: SODIUM CHLORIDE 250 ML IV SCH (17:30)
[2024-06-06 20:01] VITALS: BP 141/95; PULSE 68
== END 2024-06-06 20:53 | disposition home or self-care (01) ==
LOC: FINFUSION 12:10 → FM/S 12:11 → FINFUSION 20:53
PROVIDERS: ATTEND Internal Medicine Gastroenterology
DX: K51.90 Ulcerative colitis, unspecified, without complications (principal)
CPT/HCPCS: 36415; 80048; 80076; 82150; 85027; 85651; 86140; 96367; 96413; 96415; J1745

== ENCOUNTER 2024-08-15 11:48 | Day surgery (SDC) | payer OTHER, MEDICARE ==
[2024-08-15] MEDS: SODIUM CHLORIDE 250 ML IV SCH ×2 (13:00→17:56)
[2024-08-15 13:41] LABS: ALBUMIN 4.6 g/dl (3.4-5.0); BILIRUBIN,DIRECT 0.1 mg/dL (0.0-0.2); BILIRUBIN,TOTAL 0.6 mg/dl (0.2-1); TOT PROT 6.8 g/dl (6.4-8.2)
[2024-08-15] MEDS: DIPHENHYDRAMINE 50 MG in SODIUM CHLORIDE 50 ML IVPB SCH (14:00)
[2024-08-15] MEDS: HYDROCORTISONE SOD SUCCINATE 100 MG/2 ML VIAL IVPB SCH (14:11)
[2024-08-15] MEDS: INFLIXIMAB IVPB SCH (15:42)
[2024-08-15] MEDS: SODIUM CHLORIDE IVPB SCH (15:42)
[2024-08-15 18:41] VITALS: TEMP 98.4
[2024-08-15 19:34] VITALS: BP 131/76; PULSE 93; RESP 17
== END 2024-08-15 19:49 | disposition home or self-care (01) ==
LOC: FINFUSION 11:48 → FM/S 11:49 → FINFUSION 19:49
PROVIDERS: ATTEND Internal Medicine Gastroenterology
DX: K51.90 Ulcerative colitis, unspecified, without complications (principal)
CPT/HCPCS: 36415; 80076; 82150; 85651; 96367; 96413; 96415; J1745

== ENCOUNTER 2024-11-14 11:32 | Day surgery (SDC) | payer OTHER, MEDICARE ==
[2024-11-14] MEDS ORDERED: SODIUM CHLORIDE IVPB SCH (12:00)
[2024-11-14] MEDS ORDERED: INFLIXIMAB IVPB SCH (12:00)
[2024-11-14] MEDS: SODIUM CHLORIDE 250 ML IV SCH ×2 (12:30→18:15)
[2024-11-14] MEDS: HYDROCORTISONE SOD SUCCINATE 100 MG/2 ML VIAL IVPB SCH (13:55)
[2024-11-14] MEDS: DIPHENHYDRAMINE 50 MG in SODIUM CHLORIDE 50 ML IVPB SCH (13:56)
[2024-11-14] MEDS: INFLIXIMAB ABDA IVPB ONE (14:50)
[2024-11-14] MEDS: SODIUM CHLORIDE IVPB ONE (14:50)
[2024-11-14 18:57] VITALS: BP 101/65; PULSE 75; RESP 16; TEMP 98.1
== END 2024-11-14 18:57 | disposition home or self-care (01) ==
LOC: FINFUSION 11:32 → FM/S 11:33 → FINFUSION 18:57
PROVIDERS: ATTEND Internal Medicine Gastroenterology
DX: K51.90 Ulcerative colitis, unspecified, without complications (principal)
CPT/HCPCS: 96367; 96413; 96415; Q5104

== ENCOUNTER 2024-11-30 17:42 | Emergency (ER) | payer OTHER, MEDICARE ==
[2024-11-30 18:10] VITALS: BP 123/54; PULSE 78; RESP 18; TEMP 98.5
[2024-11-30] MEDS ORDERED: FAMOTIDINE 20 MG/50 ML IVPB 20 MG/50 ML MG IVPB ONE (20:04)
[2024-11-30] MEDS: SODIUM CHLORIDE 0.9% 500 ML INFUS.BAG IV ONE (20:23)
[2024-11-30] MEDS: FAMOTIDINE 20 MG/50 ML IVPB 20 MG/50 ML MG IVPB ONE (20:23)
[2024-11-30] MEDS: ACETAMINOPHEN 1000 MG/100 ML BAG IVPB ONE (20:36)
[2024-11-30] MEDS ORDERED: ACETAMINOPHEN INJECTION 100 ML ONE (20:37)
[2024-11-30 20:45] LABS: HEMOGLOBIN 13.3 g/dL (11.2-15.7); MCHC 32.4 g/dl (32.2-35.5); MEAN CELL VOLUME 89.3 fl (79.4-94.8); MEAN PLT VOLUME 9.3 fl (9.4-12.3); PLATELET COUNT 358 x10^3/uL (182-369)
[2024-11-30 21:07] LABS: POTASSIUM 3.6 mmol/L (3.5-5.1)
[2024-11-30 21:11] LABS: ALBUMIN 3.7 g/dl (3.4-5.0); BLOOD UREA NITROGEN 21.5 mg/dL (7-18); CALCIUM 9.1 mg/dL (8.5-10.1)
[2024-11-30 21:12] LABS: MAGNESIUM 2.3 mg/dL (1.8-2.4)
[2024-11-30 21:14] LABS: CREATININE 0.6 mg/dL (0.55-1.3)
[2024-11-30 21:16] LABS: BILIRUBIN,TOTAL 0.5 mg/dL (0.2-1)
== END 2024-11-30 22:03 | disposition home or self-care (01) ==
LOC: JER 17:42
PROC: 3E033GC Introduction of Other Therapeutic Substance into Peripheral Vein, Percutaneous Approach (ICD-10-PCS; principal; 2024-11-30)
PROC: 3E033NZ Introduction of Analgesics, Hypnotics, Sedatives into Peripheral Vein, Percutaneous Approach (ICD-10-PCS; 2024-11-30)
DX: R11.2 Nausea with vomiting, unspecified (principal); R19.7 Diarrhea, unspecified; E86.0 Dehydration; R53.1 Weakness; R10.9 Unspecified abdominal pain
CPT/HCPCS: 36415; 80053; 83690; 83735; 84484; 85027; 93005; 93010; 96361; 96365; 99284-25; J0131

== ENCOUNTER 2025-01-16 11:12 | Day surgery (SDC) | payer OTHER, MEDICARE ==
[2025-01-16 12:02] LABS: ABSOLUTE IMMATURE GRANULOCYTES 0.01 x10^3/uL (0.0-0.031); BASOPHILS # 0.02 x10^3/uL (0.01-0.08); EOSINOPHIL % 1.9 % (0.7-5.8); EOSINOPHILS # 0.14 x10^3/uL (0.04-0.36); HEMATOCRIT 42.6 % (34.1-44.9); MCHC 32.9 g/dl (32.2-35.5); MEAN CELL VOLUME 88.6 fl (79.4-94.8); MEAN PLT VOLUME 9.1 fl (9.4-12.3); MONOCYTE # 0.76 x10^3/uL (0.24-0.86); MONOCYTE % 10.1 % (4.7-12.5); PLATELET COUNT 389 x10^3/uL (182-369); RDW 13.7 % (12.4-16.6)
[2025-01-16] MEDS: SODIUM CHLORIDE 250 ML IV SCH ×2 (12:15→17:00)
[2025-01-16] MEDS ORDERED: ACETAMINOPHEN 500 MG TABLET (FP) PO PRN (12:18)
[2025-01-16 12:28] LABS: ALBUMIN 4.6 g/dl (3.4-5.0); BILIRUBIN,DIRECT 0.1 mg/dL (0.0-0.2); BILIRUBIN,TOTAL 0.5 mg/dl (0.2-1); CALCIUM 9.5 mg/dl (8.5-10.1); CREATININE 0.6 mg/dl (0.6-1.3); POTASSIUM 3.8 mmol/L (3.5-5.1); TOT PROT 7.2 g/dl (6.4-8.2)
[2025-01-16] MEDS: HYDROCORTISONE SOD SUCCINATE 100 MG/2 ML VIAL IVPB SCH (12:58)
[2025-01-16] MEDS: DIPHENHYDRAMINE 50 MG in SODIUM CHLORIDE 50 ML IVPB SCH (12:59)
[2025-01-16] MEDS: INFLIXIMAB IVPB SCH (14:00)
[2025-01-16] MEDS: SODIUM CHLORIDE IVPB SCH (14:00)
[2025-01-16 17:05] VITALS: RESP 16
[2025-01-16 17:07] VITALS: TEMP 98
[2025-01-17 07:31] VITALS: BP 112/73; PULSE 76
== END 2025-01-17 07:32 | disposition home or self-care (01) ==
LOC: FINFUSION 11:12 → FM/S 11:13 → FINFUSION 01-17 07:32
PROVIDERS: ATTEND Internal Medicine Gastroenterology
DX: K51.90 Ulcerative colitis, unspecified, without complications (principal)
CPT/HCPCS: 36415; 80048; 80076; 82150; 85025; 85651; 86140; 96375; 96413; 96415; J1745